=== PATIENT | female | born 1940 | race Caucasian/White ===

== ENCOUNTER 2016-03-24 13:22 | Emergency (ER) | payer OTHER ==
[~2016-03-24 13:22] MED LIST: ADVIL PM 38 MG-1 TAB PO; ALBUTEROL S2 MG/5 ML INH; ALBUTEROL SULFAT3 M1 INH; ALBUTEROL0.09 MG/A1 INH; ANTIVERT 25 MG25 MG PO; ANTIVERT12.5 MG PO; ATROVENT HFA 121 PUF INH; AZITHROMYCIN250 M1 PO; AZITHROMYCIN250 MG PO; BACTRIM DS 8001 TAB PO; BACTROBAN OINT.15 GM TOP; BACTROBAN15 GM TOP; BENADRYL 50 MG50 MG PO; BENZONATATE100 MG PO; BENZONATATE200 M1 PO; CHERATUSSIN AC118 ML PO; CORTEF10 M1 PO; CYCLOBENZAPRINE10 M1 PO; DELTASONE20 MG PO; DILTIAZEM 12HR120 MG PO; DILTIAZEM HYDR180 M1 PO; FLEXERIL10 MG PO; GABAPENTIN300 M2 PO; GABAPENTIN300 MG PO; GUAIFENESIN-COD10 ML PO; HYDROCODON-ACE1 EAC5 PO; HYDROCORTISONE10 M1 PO; HYDROCORTISONE10 M2 PO; HYDROCORTISONE10 MG PO; LEADER MELATONIN5 MG PO; LEVOTHYROXIN0.075 M1 PO; LEVOTHYROXINE125 MCG PO; LIDODERM 5% PAT1 PAT EXT; LIDODERM 5% PAT1 PAT TOP; MAALOX PLUS30 ML PO; MECLIZINE HCL25 MG PO; MEDROL DOSEPAK1 PAC PO; MEDROL4 M2 PO; MELATONIN3 M4 PO; MIRALAX17 GM PO; MOBIC7.5 M1 PO; MYRBETRIQ25 M1 PO; Mucinex PO; NEURONTIN300 M1 PO; NORCO 325 MG-51 TAB PO; OMEPRAZOLE20 M2 PO; OMEPRAZOLE40 MG PO; OXYBUTYNIN CHLOR5 M2 PO; OXYBUTYNIN CHLOR5 MG PO; PANTOPRAZOLE SO40 M1 PO; PAROXETINE HCL10 MG PO; PERCOCET 325 MG1 TA2 PO; PERCOCET 5-3251 EACH PO; PREDNISONE10 M2 PO; PREDNISONE10 MG PO; PREMARIN V0.625 MG/G TOP; PRILOSEC 20MG C20 MG PO; PROAIR HFA0.09 MG/Ac INH; ROBITUSSIN W/CO10 ML PO; Robitussin AC PO; SENNA CON/DOCUS1 TAB PO; SILVADENE CREAM50 GM TOP; SOLU-MEDROL40 MG IV; SYMBICORT 160/41 PUF INH; SYNTHROID75 MCG PO; Senokot S PO; TESSALON PERLE100 MG PO; VICODIN 300 MG-1 TAB PO; VICODIN 5-3001 EACH PO; VICODIN5-300 PO; ZITHROMAX Z-PA250 M1 PO; ZITHROMAX Z-PA250 MG PO; ZITHROMAX250 M2 PO; ZOFRAN 4 MG TABL4 MG PO; ZOFRAN ODT4 MG SL; [UNRECOGNIZED DRUG - OTHER] PO
[2016-03-24 14:46] LABS: ABSOLUTE BASOPHIL COUNT 0 /CUMM (0.0-0.2); ABSOLUTE EOSINOPHIL COUNT 0 /CUMM (0.0-0.7); ABSOLUTE GRANULOCYTE CT 8.7 /CUMM (1.4-6.5); ABSOLUTE LYMPH COUNT 1.6 /CUMM (1.2-3.4); ABSOLUTE MONOCYTE COUNT 0.3 /CUMM (0.10-0.60); BASOPHIL % 0.2 % (0.0-2.0); EOSINOPHIL % 0.3 % (0-5); GRANULOCYTE % 81.2 % (42.2-75.2); HEMATOCRIT 37.8 % (37-47); MEAN CORPUSCULAR HGB 24.6 PG (27.0-31.0); MEAN CORPUSCULAR HGB CONC 32.8 G/DL (33.0-37.0); MEAN PLATELET VOLUME 8.8 FL (7.4-10.4); PLATELET COUNT 185 /CUMM (130-400); RBC DISTRIBUTION WIDTH 14.2 % (11.5-14.5); RED BLOOD CELL CT 5.04 /CUMM (4.20-5.40); WHITE BLOOD CELL COUNT 10.7 /CUMM (4.8-10.8)
--- NOTE | 2016-03-24 14:54 | RADIOLOGY REPORT ---
EXAMINATION: XR CHEST CLINICAL INFORMATION: Shortness of breath and cough. COMPARISON: 03/01/2016 TECHNIQUE: PA and lateral views of the chest were obtained. FINDINGS: The cardiomediastinal silhouette is within normal limits. No focal consolidation, pleural effusion or pneumothorax. Patient is status post bilateral shoulder replacement. Diffuse osteopenia is noted. IMPRESSION: No radiographic evidence of acute pulmonary disease.
--- NOTE | 2016-03-24 15:26 | ED DYSPNEA/ASTHMA COMPLAINT ---
History of Present Illness General Chief Complaint: Dyspnea (COPD, CHF, Other) Stated Complaint: SIB MD SIMPSON FOR SOB Source: patient, old records Exam Limitations: no limitations Vital Signs & Intake/Output Vital Signs & Intake/Output Vital Signs Date Time Temp Pulse Resp B/P Pulse O2 O2 Flow FiO2 Ox Delivery Rate 03/24 1606 97.5 88 18 134/78 96 Room Air Room Air 03/24 1555 97 03/24 1351 97.3 93 20 130/77 96 Room Air Allergies Coded Allergies: Penicillins (ANAPHYLAXIS 03/01/16) cyanocobalamin (vitamin B12) (CYANOCOBALAMIN) (HIVES 03/01/16) Reconcile Medications Albuterol Sulfate 2 MG/5 ML NEB 1 UNIT INH 4 TIMES/DAY PRN DYSPNEA Azithromycin (Zithromax) 250 MG TABLET 1 DP PO AD BRONCHITIS 2 the first day followed by 1 for days 2-5 Benzonatate 200 MG CAPSULE 1 CAP PO TIDPRN COUGH Cyclobenzaprine HCl 10 MG TABLET 1 TAB PO BID PRN PAIN Diltiazem HCl (Diltiazem 12HR ER) 120 MG CAP.ER.12H 1 CAP PO DAILY HEART RATE CONTROL (Reported) Gabapentin (Neurontin) 300 MG CAPSULE 1 CAP PO TID pain Hydrocodone/Acetaminophen (Hydrocodon-Acetaminophen 5-300) 1 EACH TABLET 1 TAB PO Q8P PRN Low back pain Hydrocortisone 10 MG TABLET 1 TAB PO TID ADDISONS (Reported) Levothyroxine Sodium 125 MCG TABLET 1 TAB PO DAILY AC THYROID (Reported) Meclizine HCl 25 MG TABLET 1 TAB PO AT BEDTIME PRN DIZZINESS (Reported) Melatonin 3 MG TABLET 2 TAB PO QPM INSOMNIA (Reported) Meloxicam (Mobic) 7.5 MG TABLET 1 TAB PO DAILY PRN PAIN Methylprednisolone. (Medrol) 4 MG TAB.DS.PK 1 DP PO AD breathing Mirabegron (Myrbetriq) 25 MG TAB.ER.24H 1 TAB PO DAILY BLADDER (Reported) Omeprazole 20 MG CAPSULE.DR 20 MG PO BID Acid reflux 2 tab BID Oxybutynin Chloride 5 MG TABLET 1 TAB PO TID URINARY INCONT (Reported) Pantoprazole Sodium 40 MG TABLET.DR 1 TAB PO DAILY GI (Reported) Prednisone (Deltasone) 20 MG TABLET 1 TAB PO BID COPD Triage Note: C/O FEVER, SENT IN BY DR. MACHADO. ALSO C/O WEAKNESS SINCE LAST NIGHT, DRY COUGH. NO RELIEF OF COUGH WITH TREATMENTS. Triage Nurses Notes Reviewed? yes HPI: Patient is a 75-year-old female presents complaining of cough, congestion, generalized weakness, fevers. Symptoms onset approximately 5 days ago. Febrile between 102 and 103F 3-4 days ago. Patient reports she saw her welt maker today and was sent to the emergency department for further evaluation. Cough with sputum production. Patient is unsure if she received an influenza vaccination this year. Symptoms are currently moderate to severe. Patient denies nausea, vomiting, chest pain, abdominal pain. (MICHELLE JONES) Past History Travel History Traveled to [place] past 21 day No Medical History Any Pertinent Medical History? 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 No (MICHELLE JONES) Review of Systems Review of Systems Constitutional: Reports: chills, fever, malaise. EENTM: Reports: no symptoms. Respiratory: Reports: see HPI. Cardiovascular: Denies: chest pain. GI: Denies: abdominal pain, nausea, vomiting. Genitourinary: Reports: no symptoms. Musculoskeletal: Reports: no symptoms. Skin: Reports: no symptoms. Neurological/Psychological: Reports: no symptoms. Hematologic/Endocrine: Reports: no symptoms. Immunologic/Allergic: Reports: no symptoms. (MICHELLE JONES) Physical Exam Physical Exam General Appearance: alert, awake Head: atraumatic, normal appearance Eyes: Bilateral: normal appearance, PERRL, EOMI. Ears, Nose, Throat: normal pharynx, normal ENT inspection, hearing grossly normal Neck: normal inspection, supple, full range of motion Respiratory: no respiratory distress, mild diffuse inspiratory and expiratory wheezing. Cardiovascular: regular rate/rhythm (no murmur) Gastrointestinal: soft, non-tender Extremities: normal inspection, normal capillary refill, normal range of motion Neurologic/Psych: no motor/sensory deficits, awake, alert, oriented x 3, normal gait, normal mood/affect Skin: intact, normal color, warm/dry Lymphatic: no anterior cervical kelly Core Measures ACS in differential dx? Yes ASA ordered for poss ACS? No-ACS ruled out Severe Sepsis Present: No Septic Shock Present: No (MICHELLE JONES) Progress Differential Diagnosis: asthma, AMI, bronchitis, CHF, COPD, pulmonary embolism, pneumonia, unstable angina Plan of Care: Orders Procedure Date/time Status RAPID VIRAL INFLUENZA A 03/24 1546 Complete TROPONIN LEVEL 03/24 1409 Complete COMPREHENSIVE METABOLIC PANEL 03/24 1409 Complete CBC WITHOUT DIFFERENTIAL 03/24 1409 Complete EKG 03/24 1324 Active Laboratory Tests 03/24/16 1438: Anion Gap 14, Estimated GFR > 60, BUN/Creatinine Ratio 16.7, Glucose 136 H, Calcium 8.8, Total Bilirubin 0.4, AST 47 H, ALT 75 H, Alkaline Phosphatase 114 , Troponin I < 0.01, Total Protein 6.7, Albumin 3.9, Globulin 2.8, Albumin/ Globulin Ratio 1.4, CBC w Diff NO MAN DIFF REQ, RBC 5.04, MCV 75.0 L, MCH 24.6 L, RDW 14.2, MPV 8.8, Gran % 81.2 H, Lymphocytes % 15.1 L, Monocytes % 3.2, Eosinophils % 0.3, Basophils % 0.2, Absolute Granulocytes 8.7 H, Absolute Lymphocytes 1.6, Absolute Monocytes 0.3, Absolute Eosinophils 0, Absolute Basophils 0, PUBS MCHC 32.8 L 1600: Patient received DuoNeb treatment, reports feeling improved, ambulating around the room without distress, requesting discharge. Results of labs and x- ray discussed with patient. Discussed with Dr. Lord. Appears stable for discharge. (MICHELLE JONES) Diagnostic Imaging: Viewed by Me: Radiology Read. Discussed w/RAD: Radiology Read. Radiology Impression: PATIENT: JON CRISTINA PRESENT AGE: 75 PATIENT ACCOUNT NO: [id number] : 40 LOCATION: [facility] ORDERING PHYSICIAN: LOUIE MANUEL DO SERVICE DATE: 03/24/16-1403 EXAM TYPE: RAD - XRY-CHEST XRAY, PA AND LATERAL EXAMINATION: XR CHEST CLINICAL INFORMATION: Shortness of breath and cough. COMPARISON: 03/01/2016 TECHNIQUE: PA and lateral views of the chest were obtained. FINDINGS: The cardiomediastinal silhouette is within normal limits. No focal consolidation, pleural effusion or pneumothorax. Patient is status post bilateral shoulder replacement. Diffuse osteopenia is noted. IMPRESSION: No radiographic evidence of acute pulmonary disease. DICTATED BY: TOYIN AN DO DATE/TIME DICTATED:03/24/161447 CHAIN CARRIER:ANA DATE/TIME TRANSCRIBED:03/24/161447 CONFIDENTIAL, DO NOT COPY WITHOUT APPROPRIATE AUTHORIZATION. <Electronically signed in Other Vendor System> SIGNED BY: TOYIN AN DO 03/24/16 1454 Initial ED EKG: normal intervals, normal QRS complex, normal sinus rhythm, no ST T wave changes (MICHELLE JONES) Departure Departure Time of Disposition: 1605 Disposition: HOME OR SELF CARE Condition: Stable Clinical Impression Primary Impression: COPD exacerbation Referrals: JORGE CHICAS DO (PCP/Family) TATIANA ZAVALETA,LIGIA Corey Additional Instructions: Use your nebulizer every 4 hours for this acute exacerbation. Follow up with her primary doctor or your welt maker within 1 week for recheck and further evaluation. Departure Forms: Customer Survey General Discharge Information Prescriptions: Current Visit Scripts Methylprednisolone. (Medrol) 1 DP PO AD #1 DP (MICHELLE JONES) PA/STRIPPING SHOVEL OILER Co-Sign Statement Statement: ED Attending supervision documentation- [x] I saw and evaluated the patient. I have also reviewed all the pertinent lab results and diagnostic results. I agree with the findings and the plan of care as documented in the PA's/STRIPPING SHOVEL OILER's documentation. [] I have reviewed the ED Record and agree with the PA's/STRIPPING SHOVEL OILER's documentation. [] Additions or exceptions (if any) to the PAs/STRIPPING SHOVEL OILER's note and plan are summarized below: [] (CHELA ZAVALETA,LOUIE Myers) Critical Care Note Critical Care Note Critical Care Time: non-applicable (MICHAEL CAMPBELL,MICHELLE)
[2016-03-24 16:06] VITALS: BP 134/78
[2016-03-24] MEDS ORDERED: MEDROL4 M2 PO (16:07)
== END 2016-03-24 16:11 ==
LOC: ERH 13:22
PROVIDERS: Emergency Medicine
DX: J44.1 Chronic obstructive pulmonary disease with (acute) exacerbation (principal)
CPT/HCPCS: 1263; 87804; 87804-59; 93005; 93010

== ENCOUNTER 2016-05-04 10:13 | Emergency (ER) | payer OTHER ==
[~2016-05-04] VITALS: Ht 167.6 cm; Wt 90.7 kg
[2016-05-04] MEDS ORDERED: TRAZODONE HCL50 M1 PO (11:30)
[2016-05-04] MEDS ORDERED: ALBUTEROL2.5 MG/3 M INH/SOL (11:31)
--- NOTE | 2016-05-04 11:54 | ED GENERAL ADULT ---
History of Present Illness General Chief Complaint: General Adult Stated Complaint: MULTI COMPLAINTS Source: patient Exam Limitations: no limitations Vital Signs & Intake/Output Vital Signs & Intake/Output Vital Signs Date Time Temp Pulse Resp B/P Pulse O2 O2 Flow FiO2 Ox Delivery Rate 05/05 1245 98.6 80 20 120/60 95 Room Air 05/05 1020 99.6 97 20 128/59 95 05/05 0820 98.9 90 20 122/70 96 Room Air 05/05 0625 96.8 94 18 120/68 96 Room Air 05/04 2327 96.9 80 20 120/57 96 Room Air 05/04 1627 Room Air ED Intake and Output 05/05 0000 05/04 1200 Intake Total 1000 Output Total 1 Balance 999 Intake, IV 1000 Output, Urine 1 Patient 200 lb Weight Allergies Coded Allergies: Penicillins (ANAPHYLAXIS 03/01/16) cyanocobalamin (vitamin B12) (CYANOCOBALAMIN) (HIVES 03/01/16) Reconcile Medications Albuterol Sulfate 2.5 MG/3 ML (0.083 %) VIAL.NEB 1 Vial INH/PATI Q4P PRN DYSPNEA (Reported) Cyclobenzaprine HCl 10 MG TABLET 1 TAB PO BID PRN PAIN Diltiazem HCl (Diltiazem 12HR ER) 120 MG CAP.ER.12H 1 CAP PO DAILY HEART RATE CONTROL (Reported) Gabapentin (Neurontin) 300 MG CAPSULE 1 CAP PO TID pain Hydrocodone/Acetaminophen (Hydrocodon-Acetaminophen 5-300) 1 EACH TABLET 1 TAB PO Q8P PRN Low back pain Hydrocortisone 10 MG TABLET 1 TAB PO TID ADDISONS (Reported) Levothyroxine Sodium 125 MCG TABLET 1 TAB PO DAILY AC THYROID (Reported) Meclizine HCl 25 MG TABLET 1 TAB PO AT BEDTIME PRN DIZZINESS (Reported) Melatonin 3 MG TABLET 2 TAB PO QPM INSOMNIA (Reported) Meloxicam (Mobic) 7.5 MG TABLET 1 TAB PO DAILY PRN PAIN Mirabegron (Myrbetriq) 25 MG TAB.ER.24H 1 TAB PO DAILY BLADDER (Reported) Omeprazole 20 MG CAPSULE.DR 20 MG PO BID Acid reflux 2 tab BID Oxybutynin Chloride 5 MG TABLET 1 TAB PO TID URINARY INCONT (Reported) Pantoprazole Sodium 40 MG TABLET.DR 1 TAB PO DAILY GI (Reported) Trazodone HCl 50 MG TABLET 1 TAB PO QPM SLEEP (Reported) Triage Note: 75 Y/O FEMALE C/O "BEING SHAKY ON THE INSIDE, I CANT WALK, IM FALLING DOWN, IM SHORT OF BREATH ..". SYMPTOMS ONSET YESTERDAY. NO ACUTE DISTRESS NOTED. PT SPEAKING WITH COMPLETE SENTENCES, SAT 97%. AFEBRILE. IN W/C FOR SAFETY. Triage Nurses Notes Reviewed? yes HPI: This patient is a 75-year-old female with a past medical history including asthmatic bronchitis and CABG who presented to the emergency department today for evaluation of multiple complaints. The patient reported that yesterday she began feeling weak and, "shaky inside." She reported that it is difficult for her to walk due to weakness in her legs. She reported that she also feels like it is difficult to pick things up due to weakness in her hands. She reported that she started having 8 out of 10, sharp, nonradiating right flank pain which is worse with movement. She denied some mild burning with urination. No urinary urgency, frequency, or blood in the urine. The patient denied any abdominal pain, nausea, vomiting, fevers, chills, or chest pain. She did report that he feels like it is difficult to take a deep breath and feels like someone is, "sitting on my lungs." The patient does have a nonproductive cough, but does not know when this started. (EZEKIEL LEACH,DONALD) Past History Travel History Traveled to [place] past 21 day No Medical History Any Pertinent Medical History? 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 No (EZEKIEL LEACH,DONALD) Review of Systems Review of Systems Constitutional: Reports: see HPI. EENTM: Reports: no symptoms. Respiratory: Reports: see HPI. Cardiovascular: Reports: no symptoms. GI: Reports: no symptoms. Genitourinary: Reports: see HPI. Musculoskeletal: Reports: see HPI. Skin: Reports: no symptoms. Neurological/Psychological: Reports: no symptoms. All Other Systems: Reviewed and Negative (EZEKIEL LEACH,DONALD) Physical Exam Physical Exam General Appearance: well developed/nourished, no apparent distress, alert, awake Comments: Well-developed well-nourished person in no acute distress HEENT: Normal EENT exam, head normocephalic, dry mucous membranes PERRLA bilaterally Neck: Supple Back: Normal inspection. No bony or muscular deformities. Right-sided CVA tenderness. No midline tenderness Cardiovascular: Regular rate and rhythm with no murmurs, rubs, or gallops. No JVD appreciated Respiratory: Chest nontender. No respiratory distress. Expiratory wheezes heard throughout all lung vega. No rales or rhonchi. No diminished breath sounds Abdomen: Soft, nontender and nondistended with normoactive bowel sounds. No rebound or guarding. No peritoneal signs Extremity: No edema, no calf tenderness to palpation, normal and equal pulses. Neuro: Alert to person and place, cranial nerves II through XII grossly intact. No focal neurologic deficits Skin: No appreciable rash on exposed skin, skin is warm and dry. Psych: Mood and affect is normal Core Measures ACS in differential dx? Yes CVA/TIA Diagnosis: No Severe Sepsis Present: No Septic Shock Present: No (EZEKIEL LEACH,DONALD) Progress Differential Diagnoses I considered the following diagnoses in my evaluation of the patient: [Urinary tract infection, pyelonephritis, ACS, PE, pneumonia, bronchitis, asthma exacerbation, CHF, influenza, viral syndrome] Diagnostic Imaging: Viewed by Me: Radiology Read. Discussed w/RAD: Radiology Read. CXR Impression: PATIENT: JON CRISTINA PRESENT AGE : 75 PATIENT ACCOUNT NO: [id number] : 40 LOCATION: [facility] ORDERING PHYSICIAN: DONALD FALCON PA-C SERVICE DATE: 05/04/16 EXAM TYPE: RAD - XRY-CHEST XRAY, PA AND LATERAL EXAMINATION: XR CHEST CLINICAL INFORMATION: Cough. COMPARISON: 03/24/2016, 11/25/2015, 01/21/2015. TECHNIQUE: 2 views of the chest were obtained. FINDINGS: The cardiomediastinal silhouette is within normal limits. There is a new streaky opacity identified in the lingula concerning for developing infiltrate and pneumonia in the proper clinical setting. The lungs and pleural spaces otherwise appear clear. There is no evidence of pneumothorax or pulmonary edema. Included osseous structures demonstrate post are difficult changes in the shoulders. IMPRESSION: Probable developing lingular infiltrate concerning for pneumonia. Follow-up to clearing is recommended. DICTATED BY: MAYO YU MD DATE/TIME DICTATED:05/04/161205 MISSION COORDINATOR:ANA DATE/TIME TRANSCRIBED:05/04/161205 CONFIDENTIAL, DO NOT COPY WITHOUT APPROPRIATE AUTHORIZATION. <Electronically signed in Other Vendor System> SIGNED BY: MAYO YU MD 05/04/16 1212 Initial ED EKG: normal axis, normal intervals, no ST T wave changes, 82 BPM Comments: 05/04/2016 3:46:54 PM: Physical therapy evaluated this patient. They are recommending rehabilitation. The patient is in agreement with the plan. (EZEKIEL LEACH,DONALD) Plan of Care: Orders Procedure Date/time Status RAPID VIRAL INFLUENZA A 05/05 1251 Complete Heart Healthy Diet 05/04 D Active PT Evaluate & Treat 05/04 1446 Active CASE MANAGEMENT CONSULT 05/04 1446 Active Therapeutic Exercise X 15 05/04 UNK Complete Gait Training, 15 Min 05/04 UNK Complete PT EVAL LOW COMPLEX 20 MIN 05/04 UNK Complete Laboratory Tests 05/04/16 1533: Lactic Acid Cancelled Microbiology 05/05 1256 NASOPHARYN: Influenza Virus A & B Rapid Smear - COMP 05/04 1604 NASOPHARYN: Influenza Virus A & B Rapid Smear - CAN Cancelled: Cancelled via OE: NEED NEW LABEL Hand-Off Endorsed To: JM CEBALLOS MD Endorsed Time: 2300 Pending: consult (PT) (ZI ZAVALETA,MAREN Corey) Hand-Off Endorsed To: LOUIE YORK MD Endorsed Time: 0700 Pending: consult (JM CEBALLOS MD) Comments: 05/05/2016 07:00 pt signed out to me by dr ceballos. 05/05/2016 2:45:24 PM patient is being transferred to an extended care facility. (CHELA ZAVALETA,LOUIE Myers) Departure Departure Disposition: ACUTE REHAB FACILITY Condition: Stable Clinical Impression Primary Impression: Weakness Secondary Impressions: Unstable gait Referrals: JORGE CHICAS DO (PCP/Family) Departure Forms: Customer Survey General Discharge Information (DONALD FALCON PA-C) Critical Care Note Critical Care Note Critical Care Time: non-applicable (DONALD FALCON PA-C) 05/04 1203 URINE ROUT: Urine Culture - RECD Hand-Off Endorsed To: JM CEBALLOS MD Endorsed Time: 2300 Pending: consult (PT) (ZI ZAVALETA,MAREN Corey) Hand-Off Endorsed To: LOUIE YORK MD Endorsed Time: 0700 Pending: consult (JM CEBALLOS MD) Comments: 05/05/2016 07:00 pt signed out to me by dr ceballos. (LOUIE YORK MD) Departure Departure Disposition: ACUTE REHAB FACILITY Condition: Stable Clinical Impression Primary Impression: Weakness Secondary Impressions: Unstable gait Referrals: JORGE CHICAS DO (PCP/Family) Departure Forms: Customer Survey General Discharge Information (DONALD FALCON PA-C) Critical Care Note Critical Care Note Critical Care Time: non-applicable (DONALD FALCON PA-C)
--- NOTE | 2016-05-04 12:12 | RADIOLOGY REPORT ---
EXAMINATION: XR CHEST CLINICAL INFORMATION: Cough. COMPARISON: 03/24/2016, 11/25/2015, 01/21/2015. TECHNIQUE: 2 views of the chest were obtained. FINDINGS: The cardiomediastinal silhouette is within normal limits. There is a new streaky opacity identified in the lingula concerning for developing infiltrate and pneumonia in the proper clinical setting. The lungs and pleural spaces otherwise appear clear. There is no evidence of pneumothorax or pulmonary edema. Included osseous structures demonstrate post are difficult changes in the shoulders. IMPRESSION: Probable developing lingular infiltrate concerning for pneumonia. Follow-up to clearing is recommended.
[2016-05-04 12:23] LABS: ABSOLUTE BASOPHIL COUNT 0 /CUMM (0.0-0.2); ABSOLUTE EOSINOPHIL COUNT 0.1 /CUMM (0.0-0.7); ABSOLUTE GRANULOCYTE CT 4.5 /CUMM (1.4-6.5); ABSOLUTE LYMPH COUNT 1.5 /CUMM (1.2-3.4); ABSOLUTE MONOCYTE COUNT 0.5 /CUMM (0.10-0.60); BASOPHIL % 0.5 % (0.0-2.0); EOSINOPHIL % 1.7 % (0-5); GRANULOCYTE % 67.6 % (42.2-75.2); HEMATOCRIT 36.2 % (37-47); MEAN CORPUSCULAR HGB CONC 32.2 G/DL (33.0-37.0); MEAN CORPUSCULAR VOLUME 74.4 FL (81.0-99.0); MEAN PLATELET VOLUME 8.7 FL (7.4-10.4); PLATELET COUNT 170 /CUMM (130-400); RBC DISTRIBUTION WIDTH 15.1 % (11.5-14.5); RED BLOOD CELL CT 4.87 /CUMM (4.20-5.40); WHITE BLOOD CELL COUNT 6.7 /CUMM (4.8-10.8)
--- NOTE | 2016-05-04 14:42 | CT SCAN REPORT ---
EXAMINATION: CT CHEST PE STUDY CLINICAL INFORMATION: Weakness. Shortness of breath. Evaluate for pulmonary embolism. History of COPD and asthma. COMPARISON: Chest x-ray dated 05/04/2016. CT scan of the chest dated 11/27/2015. CTA of the chest dated 07/24/2012. TECHNIQUE: Prior to contrast administration, localization images were obtained. After the administration of 82 mL of intravenous Optiray 320, multidetector CT volume acquisition of the chest was performed. 3-D postprocessing was performed with multiplanar reconstructions and MIP images obtained at the acquisition workstation. DLP: 494.16 mGy-cm. FINDINGS: Pulmonary arteries: The bolus timing on this study was acceptable for visualization of the pulmonary arterial tree. There are no intraluminal pulmonary arterial filling defects present to suggest pulmonary embolism in the main pulmonary artery, right and left main pulmonary artery, lobar and segmental branches. Lungs: Mild biapical pleural-based reticular nodular opacities are seen, consistent with scarring. There are moderate centrilobular emphysematous changes seen with an upper lobe predominance. Mild dependent atelectasis is seen in both lower lobes. There are also patchy areas of atelectasis seen in the medial right middle lobe and in the inferomedial lingula. No pulmonary nodules, masses, pleural effusion or pneumothorax. The central airways are patent. Aorta and heart: The heart is normal in size. The aorta is normal in size. Mild aortic and coronary artery calcifications are seen. There is no pericardial effusion. Lymphatic structures: There are mildly enlarged bilateral hilar lymph nodes, measuring up to 1.1 cm in short axis, unchanged dating back to 07/24/2012. No mediastinal or axillary adenopathy is seen. Upper abdomen: There is a small retrocardiac hiatal hernia, containing the gastric fundus. Limited evaluation of the upper abdominal viscera demonstrates no focal abnormality. Bones: There is diffuse osteopenia with mild vertebral endplate spurring seen in the lower thoracic spine. No suspicious focal findings. IMPRESSION: 1. No evidence of pulmonary embolism. 2. Moderate centrilobular emphysema with scattered areas of subsegmental atelectasis. Lungs otherwise unremarkable. 3. Chronic mild bilateral hilar adenopathy, unchanged dating back to 07/24/2012, likely reactive. 4. Small retrocardiac hiatal hernia. 5. Osteopenia. VTE: Negative.
[2016-05-05 12:45] VITALS: BP 120/60
== END 2016-05-05 16:14 ==
LOC: ERH 10:13
PROVIDERS: Physician Assistant
DX: R53.1 Weakness (principal); R26.81 Unsteadiness on feet
CPT/HCPCS: 1263; 81001; 87040; 87086; 87804; 87804-59; 93005; 93010; 96361; 96374; 96375; 97110-GP; 97116-GP; 97161-GP; J1885; J2930

== ENCOUNTER 2016-06-25 12:08 | Emergency (ER) | payer OTHER ==
[~2016-06-25] VITALS: Ht 167.6 cm; Wt 90.7 kg
[~2016-06-25 12:08] MED LIST changes: +ALBUTEROL2.5 MG/3 M INH/SOL; +TRAZODONE HCL50 M1 PO
[2016-06-25 12:25] VITALS: BP 100/60
--- NOTE | 2016-06-25 12:54 | ED NECK/BACK PAIN COMPLAINT ---
History of Present Illness General Chief Complaint: Low Back Pain/Injury Stated Complaint: BACK PAIN Source: patient, old records Exam Limitations: no limitations Vital Signs & Intake/Output Vital Signs & Intake/Output Vital Signs Date Time Temp Pulse Resp B/P Pulse O2 O2 Flow FiO2 Ox Delivery Rate 06/25 1225 97.2 93 20 100/60 96 Room Air Allergies Coded Allergies: Penicillins (ANAPHYLAXIS 03/01/16) cyanocobalamin (vitamin B12) (CYANOCOBALAMIN) (HIVES 03/01/16) Reconcile Medications Albuterol Sulfate 2.5 MG/3 ML (0.083 %) VIAL.NEB 1 Vial INH/PATI Q4P PRN DYSPNEA (Reported) Cyclobenzaprine HCl 10 MG TABLET 1 TAB PO BID PRN PAIN Diltiazem HCl (Diltiazem 12HR ER) 120 MG CAP.ER.12H 1 CAP PO DAILY HEART RATE CONTROL (Reported) Gabapentin (Neurontin) 300 MG CAPSULE 1 CAP PO TID pain Hydrocodone/Acetaminophen (Hydrocodon-Acetaminophen 5-300) 1 EACH TABLET 1 TAB PO Q8P PRN Low back pain Hydrocortisone 10 MG TABLET 1 TAB PO TID ADDISONS (Reported) Levothyroxine Sodium 125 MCG TABLET 1 TAB PO DAILY AC THYROID (Reported) Meclizine HCl 25 MG TABLET 1 TAB PO AT BEDTIME PRN DIZZINESS (Reported) Melatonin 3 MG TABLET 2 TAB PO QPM INSOMNIA (Reported) Meloxicam (Mobic) 7.5 MG TABLET 1 TAB PO DAILY PRN PAIN Mirabegron (Myrbetriq) 25 MG TAB.ER.24H 1 TAB PO DAILY BLADDER (Reported) Omeprazole 20 MG CAPSULE.DR 20 MG PO BID Acid reflux 2 tab BID Oxybutynin Chloride 5 MG TABLET 1 TAB PO TID URINARY INCONT (Reported) Pantoprazole Sodium 40 MG TABLET.DR 1 TAB PO DAILY GI (Reported) Trazodone HCl 50 MG TABLET 1 TAB PO QPM SLEEP (Reported) Tylenol With Codeine (Tylenol With Codeine #3 Tablet) 300 MG-30 MG TABLET 1 TAB PO BIDP PRN PAIN Triage Note: PT TO ED C/O CHRONIC BACK PAIN, WORSE YESTERDAY AND TODAY. TOOK NEURONTIN, BUT RAN OUT. DENIES INJURY. WORSE WITH WALKING. Triage Nurses Notes Reviewed? yes Onset: Gradual Duration: worse persistent since (1 DAY) Timing: recent history Quality/Severity: moderate Location: lumbar spine, paraspinous muscles Radiation: buttocks, upper legs Context: WITH WALKING Method of Injury: unknown Loss of Consciousness: no loss of consciousness HPI: Patient is a 76 out of female with history of chronic back pain presenting to the emergency department with chief complaint of worsening low back pain since yesterday. She reports that she was on a train yesterday and when she got off the train she had to walk 4 blocks home. She does not usually walk that far. Denies any specific trauma but reports that she started having low back pain. Pain is bilateral but worse on the left. It intermittently radiates down to the left buttock. Denies any weakness in the lower extremities. No paresthesias. Denies any urinary incontinence or retention. 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 No chest pain palpitations or shortness of breath. Denies abdominal pain. Denies flank pain. No hematuria. No fevers or chills. (JENNIFER WELLS) Past History Travel History Traveled to [place] past 21 day No Medical History Any Pertinent Medical History? 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 Other Medical Hx: RADHA'S DISEASE, BOBO'S SYNDROME History of MRSA: No History of VRE: No History of CDIFF: No Tetanus Vaccine: 05/02/14 Surgical History Surgical History: knee replacement, BACK SX WRIST SX SHOULDER SX HYSTERECTOMY Psychosocial History Who do you live with Daughter Services at Home None What is your primary language Yakut Tobacco Use: Quit >30 days ago ETOH Use: denies use Illicit Drug Use: denies illicit drug use Family History Family History, If Any: SISTER FH: heart disease BROTHER FH: heart disease MOTHER FH: heart disease FATHER FH: heart disease FH: hypertension Hx Contributory? No (JENNIFER WELLS) Review of Systems Review of Systems Constitutional: Reports: no symptoms. Comments Review of systems: See HPI, All other systems negative. Constitutional, no chills fever or weight loss HEENT: No visual changes no sore throat no congestion Cardiovascular: No chest pain ,palpitation , orthopnea or ankle swelling Skin, no jaundice no rashes Respiratory: No dyspnea cough sputum or hemoptysis GI: No nausea no vomiting : No dysuria No hematuria Muscle skeletal: no neck pain, Neurologic: No numbness no confusion NO WILDER Psych: No stress anxiety or depression,. Heme/endocrine: No bruising no bleeding no polyuria or polydipsia Immunology: No splenectomy or history of AIDS (JENNIFER WELLS) Physical Exam Physical Exam General Appearance: well developed/nourished, no apparent distress, alert, awake , comfortable Neck: normal inspection, supple, full range of motion, normal alignment Comments: Well-developed well-nourished person in no acute distress HEENT: Pupils equally round and reactive to light and accommodation. Nose is atraumatic. Neck: Supple,FULL ROM, NO C SPINE TENDERNESS. Back: Tender to palpation over the paraspinal muscles bilaterally, left greater than right. Limited range of motion with flexion second. Pain at approximately 25 of flexion. No CVA tenderness on exam. Negative modified straight leg raise bilaterally. Cardiovascular: Regular rate and rhythms no murmurs rubs or gallops, normal JVP Respiratory: Chest nontender. No respiratory distress.breath sounds clear to auscultation bilaterally Abdomen: Soft, nontender nondistended, no appreciable organomegaly. Normal bowel sounds. No ascites. No palpable masses or visualized masses on the abdomen. Extremity: No edema, no calf tenderness to palpation, normal and equal pulses. Muscular strength is 5 out of 5 in upper and lower extremities while seated on the stretcher. Gleason Operator strength is equal and symmetric bilaterally. Neuro: Alert oriented x3, motor sensory normal, PATELLAR REFLEXES ARE 2 PLUS BIALATERALLY. Skin: No appreciable rash on exposed skin, skin is warm and dry. Psych: Mood and affect is normal, memory and judgment is normal. (JENNIFER WELLS) Progress Differential Diagnosis: herniated disc, myofascial strain, pyelo/UTI, sciatica, T/L spine injury Plan of Care: Orders Procedure Date/time Status XRY-LUMBOSACRAL SPINE 4 VIEWS 06/25 1304 Active (JENNIFER WELLS) Diagnostic Imaging: Viewed by Me: Radiology Read. Discussed w/RAD: Radiology Read. Radiology Impression: PATIENT: JON CRISTINA PRESENT AGE: 76 PATIENT ACCOUNT NO: [id number] : 40 LOCATION: [facility] ORDERING PHYSICIAN: JENNIFER CAMPBELL SERVICE DATE: 06/25/16-7425 EXAM TYPE: RAD - XRY-LUMBOSACRAL SPINE 4 VIEWS EXAMINATION: XR LUMBOSACRAL SPINE CLINICAL INFORMATION: Pain in lower back. Evaluate for compression fracture. COMPARISON: Lumbar spine film dated 08/28/2014 and 08/27/2013. CT scan of the lumbar spine dated 12/07/2015. TECHNIQUE: AP and lateral views of the lumbosacral spine were obtained. FINDINGS: Diffuse osteopenia and mild convex left thoracolumbar scoliosis again seen. There is no acute compression deformity noted. Moderate degenerative disc disease is again seen at L1-L2 with disc space narrowing, vertebral endplate sclerosis and spurring and grade 1 retrolisthesis of L1 on L2, unchanged dating back to 08/27/2013. There is mild degenerative disc disease at L2-L3, L3-L4. Grade 1 anterolistheses of L5 on S1 is again seen, unchanged. Moderate facet arthropathy present throughout the mid and lower lumbar spine. Fusion of the posterior elements at L4-L5 and L5-S1 is seen. Sacroiliac joints intact and unremarkable. IMPRESSION: 1. Diffuse osteopenia with no evidence of focal compression fracture. 2. Mild thoracolumbar levoscoliosis with multilevel mild to moderate degenerative disc disease and mid and lower lumbar degenerative joint disease. Findings are similar to prior studies. Comments: Patient given by mouth Vicodin on arrival for pain. We will obtain x-ray secondary to history of osteoporosis and age. Patient informed of x-ray results. No signs of acute fracture. Likely exacerbation of chronic pain. Patient will be treated symptomatically with pain medication. Avoiding steroids and NSAIDs secondary to history of osteopenia and cardiac issues. (JULIETH CAMPBELL,JENNIFER) Departure Departure Time of Disposition: 1426 Disposition: HOME OR SELF CARE Condition: Stable Clinical Impression Primary Impression: Back pain Qualifiers: Back pain location: low back pain Chronicity: chronic Back pain laterality: bilateral Sciatica presence: with sciatica Sciatica laterality: sciatica of left side Qualified Codes: M54.42 - Lumbago with sciatica, left side ; G89.29 - Other chronic pain Referrals: JORGE CHICAS DO (PCP/Family) Additional Instructions: Follow-up with your primary care physician call to make an appointment. Avoid heavy lifting or sudden movements. Take medications as prescribed. Return for worsening symptoms or concerns. Departure Forms: Customer Survey General Discharge Information Prescriptions: Current Visit Scripts Tylenol With Codeine (Tylenol With Codeine #3 Tablet) 1 TAB PO BIDP PRN PAIN #6 TAB (JENNIFER WELLS) PA/CONTENT EDITOR Co-Sign Statement Statement: ED Attending supervision documentation- [X] I saw and evaluated the patient. I have also reviewed all the pertinent lab results and diagnostic results. I agree with the findings and the plan of care as documented in the PA's/CONTENT EDITOR's documentation. [X] I have reviewed the ED Record and agree with the PA's/CONTENT EDITOR's documentation. [] Additions or exceptions (if any) to the PAs/CONTENT EDITOR's note and plan are summarized below: [] (ZI ZAVALETA,MAREN Corey)
--- NOTE | 2016-06-25 14:25 | RADIOLOGY REPORT ---
EXAMINATION: XR LUMBOSACRAL SPINE CLINICAL INFORMATION: Pain in lower back. Evaluate for compression fracture. COMPARISON: Lumbar spine film dated 08/28/2014 and 08/27/2013. CT scan of the lumbar spine dated 12/07/2015. TECHNIQUE: AP and lateral views of the lumbosacral spine were obtained. FINDINGS: Diffuse osteopenia and mild convex left thoracolumbar scoliosis again seen. There is no acute compression deformity noted. Moderate degenerative disc disease is again seen at L1-L2 with disc space narrowing, vertebral endplate sclerosis and spurring and grade 1 retrolisthesis of L1 on L2, unchanged dating back to 08/27/2013. There is mild degenerative disc disease at L2-L3, L3-L4. Grade 1 anterolistheses of L5 on S1 is again seen, unchanged. Moderate facet arthropathy present throughout the mid and lower lumbar spine. Fusion of the posterior elements at L4-L5 and L5-S1 is seen. Sacroiliac joints intact and unremarkable. IMPRESSION: 1. Diffuse osteopenia with no evidence of focal compression fracture. 2. Mild thoracolumbar levoscoliosis with multilevel mild to moderate degenerative disc disease and mid and lower lumbar degenerative joint disease. Findings are similar to prior studies.
[2016-06-25] MEDS ORDERED: TYLENOL WITH C1 EACH PO (14:29)
== END 2016-06-25 14:40 ==
LOC: ERH 12:08
DX: M54.5 Low back pain (principal)
CPT/HCPCS: 72110

== ENCOUNTER 2016-07-04 09:37 | Inpatient (IN) | payer OTHER ==
[~2016-07-04] VITALS: Ht 170.2 cm; Wt 90.7 kg
[~2016-07-04 09:37] MED LIST changes: +TYLENOL WITH C1 EACH PO
--- NOTE | 2016-07-04 09:44 | NUR ---
PT C/O PRODUCTIVE COUGH AND SOB X 2 DAYS. STATES WORSE TODAY. 02 SATS 95% IN TRIAGE. PT DENIES CP
--- NOTE | 2016-07-04 10:31 | ED INFLUENZA/URI COMPLAINT ---
History of Present Illness General Chief Complaint: General Adult Stated Complaint: URI; CONGESTION X COUPLE DAYS Source: patient, old records Exam Limitations: no limitations Vital Signs & Intake/Output Vital Signs & Intake/Output Vital Signs Date Time Temp Pulse Resp B/P B/P Pulse O2 O2 Flow FiO2 Mean Ox Delivery Rate 07/04 1540 100.2 07/04 1518 100.2 105 18 132/61 96 Nasal 2.5L Cannula 07/04 1340 99.7 115 21 123/62 92 Nasal 2.0L Cannula 07/04 1138 96 07/04 1054 99.9 100 20 119/56 92 Room Air 07/04 1049 98 07/04 0943 98.1 108 20 119/62 95 Room Air Allergies Coded Allergies: Penicillins (ANAPHYLAXIS 03/01/16) cyanocobalamin (vitamin B12) (CYANOCOBALAMIN) (HIVES 03/01/16) Reconcile Medications Albuterol Sulfate 2.5 MG/3 ML (0.083 %) VIAL.NEB 1 Vial INH/PATI Q4P PRN DYSPNEA (Reported) Cyclobenzaprine HCl 10 MG TABLET 1 TAB PO BID PRN PAIN Diltiazem HCl (Diltiazem 12HR ER) 120 MG CAP.ER.12H 1 CAP PO DAILY HEART RATE CONTROL (Reported) Fluticasone/Vilanterol (Breo Ellipta 200-25 Mcg INH) 200 MCG-25 MCG/DOSE BLST.W.DEV 1 INH INH DAILY COPD (Reported) Gabapentin (Neurontin) 300 MG CAPSULE 1 CAP PO TID pain Hydrocodone/Acetaminophen (Hydrocodon-Acetaminophen 5-300) 1 EACH TABLET 1 TAB PO Q8P PRN Low back pain Hydrocortisone 10 MG TABLET 1 TAB PO TID ADDISONS (Reported) Ipratropium/Albuterol Sulfate (Combivent Respimat Inhal [place]) 20 MCG-100 MCG/ ACTUATION MIST.INHAL 1 PO BREATHING PROBLEMS (Reported) Levothyroxine Sodium 125 MCG TABLET 1 TAB PO DAILY AC THYROID (Reported) Meclizine HCl 25 MG TABLET 1 TAB PO AT BEDTIME PRN DIZZINESS (Reported) Melatonin 3 MG TABLET 2 TAB PO QPM INSOMNIA (Reported) Meloxicam (Mobic) 7.5 MG TABLET 1 TAB PO DAILY PRN PAIN Mirabegron (Myrbetriq) 25 MG TAB.ER.24H 1 TAB PO DAILY BLADDER (Reported) Omeprazole 20 MG CAPSULE.DR 20 MG PO BID Acid reflux 2 tab BID Oxybutynin Chloride 5 MG TABLET 1 TAB PO TID URINARY INCONT (Reported) Pantoprazole Sodium 40 MG TABLET.DR 1 TAB PO DAILY GI (Reported) Trazodone HCl 50 MG TABLET 1 TAB PO QPM SLEEP (Reported) Tylenol With Codeine (Tylenol With Codeine #3 Tablet) 300 MG-30 MG TABLET 1 TAB PO BIDP PRN PAIN Triage Note: PT C/O PRODUCTIVE COUGH AND SOB X 2 DAYS. STATES WORSE TODAY. 02 SATS 95% IN TRIAGE Triage Nurses Notes Reviewed? yes Onset: Abrupt Duration: day(s): (2), constant Timing: recent history Severity: mild, moderate Severity Numbers: 6 Prior Episodes/Possible Cause: chronic episodes No Modifying Factors: none Associated Symptoms: cough, wheezing HPI: 76 year old female history of COPD not on baseline O2 for prednisone presents complaining of a nonproductive cough associated with shortness of breath for the past 2 days. Patient states that she ran out of her inhalers at home. She denies chest pain fever chills sore throat and rhinorrhea. No abdominal pain leg swelling. There are no modifying factors or associated symptoms otherwise. Patient has felt lightheaded with ambulation she is an active smoker. Her job estimator is Dr. MACHADO whom she was scheduled to see today. (ANA LILIA COLON) Past History Travel History Traveled to [place] past 21 day No Medical History Any Pertinent Medical History? 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 Other Medical Hx: RADHA'S DISEASE, BOBO'S SYNDROME History of MRSA: No History of VRE: No History of CDIFF: No Tetanus Vaccine: 05/02/14 Surgical History Surgical History: knee replacement, BACK SX WRIST SX SHOULDER SX HYSTERECTOMY Psychosocial History Who do you live with Daughter Services at Home None What is your primary language [place]orese Tobacco Use: Quit >30 days ago ETOH Use: denies use Illicit Drug Use: denies illicit drug use Family History Family History, If Any: SISTER FH: heart disease BROTHER FH: heart disease MOTHER FH: heart disease FATHER FH: heart disease FH: hypertension Hx Contributory? No (ANA LILIA COLON) Review of Systems Review of Systems Constitutional: Reports: see HPI. All Other Systems: Reviewed and Negative Comments Review of systems: See HPI, All other systems negative. Constitutional, no chills no fever, no malaise HEENT: No visual changes no sore throat no congestion Cardiovascular: No chest pain , no palpitation Skin: no rashes, no change in skin Respiratory: dyspnea cough no sputum GI: No nausea no vomiting, no diarrhea, : No dysuria Muscle skeletal: No joint pain, no joint swelling, no back pain, no neck pain, Neurologic: No numbness no confusion, no headache Psych: No stress Heme/endocrine: No bruising no bleeding Immunology: No lymphadenopathy (ANA LILIA COLON) Physical Exam Physical Exam General Appearance: well developed/nourished, no apparent distress, alert, awake Ears, Nose, Throat: normal ENT inspection, moist mucous membrane, hearing grossly normal, Tympanic normal Comments: Well-developed well-nourished person in no acute distress Head/Face: Atraumatic, no maxillary/frontal sinus tenderness, no facial swelling Eyes: PERRL, EOMI, no conjunctival injection. No nystagmus Ear:External auditory canal and Tympanic membranes clear, no erythema, no FB. Nose: atraumatic.Normal inspection Throat: Moist mucous membranes.Pharynx normal. No pharyngeal erythema/exudate seen. No stridor/drooling or assymetry. No swelling or edema. Neck: Supple, no lymphadenopathy, FROM Back: Nontender, no CVA tenderness. Full range of motion Cardiovascular: Regular rate and rhythms no murmurs rubs Respiratory: Chest nontender.There were no bony deformities, no asymmetry. No respiratory distress. Patient speaking in full complete sentences. wheezing b/l , no rhonchi no rales Abdomen: Soft, nontender nondistended No ascites. Extremity: No edema, full range of motion of extremities, NEURo: pt is awake and oriented x 3. There were no obvious focal neurologic abnormalities. Skin: No appreciable rash on exposed skin, skin is warm and dry. Psych: Mood and affect is normal, memory and judgment is normal. Core Measures Severe Sepsis Present: No Septic Shock Present: No (ANA LILIA COLON) Progress Differential Diagnosis: influenza, pneumonia, bronchitis, ami,pnthx, chf Plan of Care: Orders Procedure Date/time Status Regular Diet 07/04 D Active RAPID VIRAL INFLUENZA A 07/04 1557 Active Change service to 07/04 1556 Active Pathway - chart 07/04 1523 Active Admit to inpatient 07/04 1451 Active Lab Add-on Test 07/04 1451 Active TRC EVALUATION (GEN) 07/04 1436 Active Saline Lock 07/04 1431 Active Pathway - chart 07/04 1431 Active House Staff 07/04 1431 Active Vital Signs 07/04 1413 Active Code Status 07/04 1413 Active Patient Data 07/04 1344 Active Add-on Test (ER Only) 07/04 1201 Active Add-on Test (ER Only) 07/04 1055 Active TOTAL IRON BINDING CAPACITY 07/04 1055 Complete MAGNESIUM 07/04 1055 Complete FERRITIN 07/04 1055 Complete SERUM IRON 07/04 1055 Complete Intake & Output 07/04 1040 Active TROPONIN LEVEL 07/04 1034 Complete CBC WITHOUT DIFFERENTIAL 07/04 1034 Complete BASIC METABOLIC PANEL 07/04 1034 Complete EKG 07/04 0949 Active EKG 07/04 0945 Active VTE Mechanical Prophylaxis 07/04 UNK Active Current Medications Sig/Veronique Start time Last Medication Dose Stop Time Status Admin Ipratropium [place] 2.5 ML ONCE ONE 07/05 1515 AC (Atrovent) 07/05 1516 Diltiazem HCl 120 MG DAILY 07/05 1000 AC (Cardizem CD) Mirabegron 25 MG DAILY 07/05 1000 AC (Myrbetriq) Levothyroxine Sodium 0.125 MG DAILY AC 07/05 0700 AC (Synthroid) Melatonin 6 MG QPM 07/04 2200 AC (Melatonin) Methylprednisolone 40 MG Q8 07/04 2200 AC (Solumedrol) Trazodone HCl 50 MG QPM 07/04 2200 AC (Desyrel) Azithromycin 500 MG Q24H 07/04 1600 AC 07/04 (Zithromax) 1548 Sodium Chloride 250 ML (Normal Saline 0.9%) Gabapentin 300 MG TID 07/04 1600 AC (Neurontin) Hydrocortisone 10 MG TID 07/04 1600 CAN (Hydrocortisone) Oxybutynin Chloride 5 MG TID 07/04 1600 AC (Ditropan) Meloxicam 7.5 MG DAILY 07/04 1530 AC (Mobic 7.5MG) Enoxaparin Sodium 40 MG DAILY 07/04 1519 AC 07/04 (Lovenox) 1540 Acetaminophen 650 MG Q6P PRN 07/04 1515 AC 07/04 (Tylenol) 1540 Oxycodone/ 1 TAB Q6P PRN 07/04 1515 AC Acetaminophen (Percocet) Guaifenesin/Codeine 10 ML Q4P PRN 07/04 1500 AC 07/04 Phosphate 1540 (Robitussin AC) Albuterol Sulfate 3 ML Q4P PRN 07/04 1445 AC (Proventil) Cyclobenzaprine HCl 10 MG BID PRN 07/04 1445 AC (Flexeril 10MG Tab) Laboratory Tests 07/04/16 1055: Anion Gap 9, Estimated GFR > 60, BUN/Creatinine Ratio 18.8, Glucose 89, Calcium 8.6, Magnesium 2.0, Iron 36 L, TIBC 355, Ferritin 22.7, Troponin I < 0.01, CBC w Diff NO MAN DIFF REQ, RBC 4.57, MCV 72.7 L, MCH 23.7 L, RDW 14.9 H, MPV 8.7 , Gran % 64.8, Lymphocytes % 22.6, Monocytes % 9.9 H, Eosinophils % 2.0, Basophils % 0.7, Absolute Granulocytes 4.2, Absolute Lymphocytes 1.5, Absolute Monocytes 0.6, Absolute Eosinophils 0.1, Absolute Basophils 0, PUBS MCHC 32.6 L Microbiology 07/04 1557 NASOPHARYN: Influenza Virus A & B Rapid Smear - COLB Labs ordered DuoNeb chest x-ray ordered patient's case d/w dr manuel was seen and evaluated by dr manuel agrees with plan Patient noted to be wheezing after DuoNeb continuous nebulizer ordered After repeat DuoNeb patient unable to ambulate secondary to dyspnea discussed with her plan of care and need for admission she is a poor outpatient candidate premature discharge would BE medically harmful which she is in agreement with call was placed to the hospitalist (ANA LILIA COLON) Diagnostic Imaging: Viewed by Me: Radiology Read. Discussed w/RAD: Radiology Read. Radiology Impression: PATIENT: JON CRISTINA PRESENT AGE: 76 PATIENT ACCOUNT NO: [id number] : 40 LOCATION: [facility] ORDERING PHYSICIAN: ANA LILIA CAMPBELL SERVICE DATE: 07/04/16 EXAM TYPE: RAD - XRY-CHEST XRAY, PA AND LATERAL EXAMINATION: XR CHEST, 2 VIEWS CLINICAL INFORMATION: Productive cough. Rule out bronchitis. COMPARISON: 05/27/2016 TECHNIQUE: PA and lateral views of the chest were obtained. FINDINGS: Lungs are hyperexpanded with subtle architectural distortion, consistent with known emphysema. No consolidation, pneumothorax, or pleural effusion. Cardiac and mediastinal contours are normal. Pulmonary vasculature is unremarkable. Trachea is midline. Bilateral shoulder arthroplasties are partially imaged. Bones are osteopenic. IMPRESSION: No acute pulmonary findings. DICTATED BY: ANTONIO SAM MD DATE/TIME DICTATED:07/04/161025 OIL AGENT:ANA DATE/TIME TRANSCRIBED:07/04/161025 CONFIDENTIAL, DO NOT COPY WITHOUT APPROPRIATE AUTHORIZATION. <Electronically signed in Other Vendor System> SIGNED BY: ANTONIO SAM MD 07/04/16 1033 Initial ED EKG: sinus tach at 100, no acute ST segment changes normal axis Prior EKG: unchanged () (ANA LILIA COLON) Departure Departure Time of Disposition: 1212 Disposition: STILL A PATIENT Condition: Stable Clinical Impression Primary Impression: COPD exacerbation Referrals: JORGE CHICAS DO (PCP/Family) Departure Forms: Customer Survey General Discharge Information Admission Note Spoke With: RENNY ZAVALETA,ABE June Documentation of Exam: Documentation of any treatments & extenuating circumstances including Concerns Regarding Discharge (functional status, medication knowledge or non-compliance, living conditions, etc.) that warrant an admission rather than observation: Trend labs IV steroids respiratory treatments when necessary premature discharge would BE medically harmful oxygen saturation dropped to 89-90% with ambulation she is a fall risk (ANA LILIA COLON) PA/DIRECTOR CALL CENTER SALES Co-Sign Statement Statement: ED Attending supervision documentation- [X] I saw and evaluated the patient. I have also reviewed all the pertinent lab results and diagnostic results. I agree with the findings and the plan of care as documented in the PA's/DIRECTOR CALL CENTER SALES's documentation. [] I have reviewed the ED Record and agree with the PA's/DIRECTOR CALL CENTER SALES's documentation. [] Additions or exceptions (if any) to the PAs/DIRECTOR CALL CENTER SALES's note and plan are summarized below: [] (LOUIE MANUEL DO)
[2016-07-04] MEDS ORDERED: COMBIVENT RESPIM4 GM INH (10:32)
--- NOTE | 2016-07-04 10:51 | NUR ---
TRIAGE NOTE APPRECIATED PT RECEIVING NEB TREATMENT AT THIS TIME MEDICATED WITH PREDNISONE
[2016-07-04 11:11] LABS: ABSOLUTE BASOPHIL COUNT 0 /CUMM (0.0-0.2); ABSOLUTE EOSINOPHIL COUNT 0.1 /CUMM (0.0-0.7); ABSOLUTE GRANULOCYTE CT 4.2 /CUMM (1.4-6.5); ABSOLUTE LYMPH COUNT 1.5 /CUMM (1.2-3.4); ABSOLUTE MONOCYTE COUNT 0.6 /CUMM (0.10-0.60); BASOPHIL % 0.7 % (0.0-2.0); GRANULOCYTE % 64.8 % (42.2-75.2); HEMATOCRIT 33.2 % (37-47); MEAN CORPUSCULAR HGB 23.7 PG (27.0-31.0); MEAN CORPUSCULAR HGB CONC 32.6 G/DL (33.0-37.0); MEAN CORPUSCULAR VOLUME 72.7 FL (81.0-99.0); MEAN PLATELET VOLUME 8.7 FL (7.4-10.4); PLATELET COUNT 212 /CUMM (130-400); RBC DISTRIBUTION WIDTH 14.9 % (11.5-14.5); RED BLOOD CELL CT 4.57 /CUMM (4.20-5.40); WHITE BLOOD CELL COUNT 6.5 /CUMM (4.8-10.8)
--- NOTE | 2016-07-04 12:03 | NUR ---
PT UNABLE TO WALK TO DOOR FROM BED PT DYSPNEIC COUGHING LOUDLY
--- NOTE | 2016-07-04 12:11 | NUR ---
pt placed on cardiac tech, changened INTO GOWN AND SOCKS, BELONGINGS BAGGED. BLANKET GIVEN FOR COMFORT.
--- NOTE | 2016-07-04 12:22 | NUR ---
PT MEDICATED FOR COUGH IV ESTABLISHED
--- NOTE | 2016-07-04 13:49 | NUR ---
LUNCH TRAY ORDERED WITH [facility] IN [facility].
[2016-07-04] MEDS ORDERED: BREO ELLIPTA 21 EACH INH (14:16)
--- NOTE | 2016-07-04 14:42 | History & Physical ---
JEAN PAUL KLEIN 07/04/16 1442: General Information and HPI MD Statement: I have seen and personally examined SOL CRISTINA and documented this H&P. 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 Today while she was on her way to go to her stitch welder's office Dr. Vogt in [facility] she had a coughing attack and was escorted by medical staff to the ED. She complains of 2 day history of nonproductive cough associated with documented fever 101-102 at home. Reports some shortness of breath on minimal exertion. On interview she reported some palpitations. Her daughter who lives with her also has a "cold". Denies chest pain, dizziness, worsening lower extremity swelling, orthopnea. Allergies/Medications Allergies: Coded Allergies: Penicillins (ANAPHYLAXIS 03/01/16) cyanocobalamin (vitamin B12) (CYANOCOBALAMIN) (HIVES 03/01/16) Home Med list Albuterol Sulfate 2.5 MG/3 ML (0.083 %) VIAL.NEB 1 Vial INH/PATI Q4P PRN DYSPNEA (Reported) Cyclobenzaprine HCl 10 MG TABLET 1 TAB PO BID PRN PAIN Diltiazem HCl (Diltiazem 12HR ER) 120 MG CAP.ER.12H 1 CAP PO DAILY HEART RATE CONTROL (Reported) Fluticasone/Vilanterol (Breo Ellipta 200-25 Mcg INH) 200 MCG-25 MCG/DOSE BLST.W.DEV 1 INH INH DAILY COPD (Reported) Gabapentin (Neurontin) 300 MG CAPSULE 1 CAP PO TID pain Hydrocodone/Acetaminophen (Hydrocodon-Acetaminophen 5-300) 1 EACH TABLET 1 TAB PO Q8P PRN Low back pain Hydrocortisone 10 MG TABLET 1 TAB PO TID ADDISONS (Reported) Ipratropium/Albuterol Sulfate (Combivent Respimat Inhal [place]) 20 MCG-100 MCG/ ACTUATION MIST.INHAL 1 PO BREATHING PROBLEMS (Reported) Levothyroxine Sodium 125 MCG TABLET 1 TAB PO DAILY AC THYROID (Reported) Meclizine HCl 25 MG TABLET 1 TAB PO AT BEDTIME PRN DIZZINESS (Reported) Melatonin 3 MG TABLET 2 TAB PO QPM INSOMNIA (Reported) Meloxicam (Mobic) 7.5 MG TABLET 1 TAB PO DAILY PRN PAIN Mirabegron (Myrbetriq) 25 MG TAB.ER.24H 1 TAB PO DAILY BLADDER (Reported) Omeprazole 20 MG CAPSULE.DR 20 MG PO BID Acid reflux 2 tab BID Oxybutynin Chloride 5 MG TABLET 1 TAB PO TID URINARY INCONT (Reported) Pantoprazole Sodium 40 MG TABLET.DR 1 TAB PO DAILY GI (Reported) Trazodone HCl 50 MG TABLET 1 TAB PO QPM SLEEP (Reported) Tylenol With Codeine (Tylenol With Codeine #3 Tablet) 300 MG-30 MG TABLET 1 TAB PO BIDP PRN PAIN Compliance With Home Meds: GOOD Past History Travel History Traveled to [place] past 21 day No Medical History Neurological: NONE EENT: NONE Cardiovascular: CAD, TACHYCARDIA Respiratory: COPD, emphysema Gastrointestinal: NONE Hepatic: NONE Renal: NONE Musculoskeletal: chronic back pain, disk herniation, 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 Psychiatric: NONE Endocrine: adrenal insufficiency, hypopituitarism, hypothyroidism Blood Disorders: anemia Cancer(s): NONE 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 self Services at Home: None ETOH Use: denies use Illicit Drug Use: denies illicit drug use Review of Systems Review of Systems Constitutional: Reports: fever. Denies: chills, diaphoresis, malaise, weakness, unexplained weight loss. Cardiovascular: Reports: palpitations. Denies: chest pain, edema, orthopena, peripheral edema, syncope. Respiratory: Reports: cough, short of breath. Denies: hemoptysis, orthopnea, sputum production, stridor, wheezing. GI: Denies: abdominal pain, bloating, constipation, diarrhea, distention, bowel incontinence, melena, nausea, bloody stool, changes in stool, vomiting, steatorrhea. Genitourinary: Denies: discharge, dysuria, frequency, hematuria, hesitation, nocturia, pain, urgency. Exam & Diagnostic Data Last 24 Hrs of Vital Signs/I&O Vital Signs Date Time Temp Pulse Resp B/P B/P Pulse O2 O2 Flow FiO2 Mean Ox Delivery Rate 07/04 1800 122 142/104 07/04 1630 96 Nasal 2.5L Cannula 07/04 1615 97.8 105 22 132/61 96 Nasal 3.0L Cannula 07/04 1540 100.2 07/04 1518 100.2 105 18 132/61 96 Nasal 2.5L Cannula 07/04 1340 99.7 115 21 123/62 92 Nasal 2.0L Cannula 07/04 1138 96 07/04 1054 99.9 100 20 119/56 92 Room Air 07/04 1049 98 07/04 0943 98.1 108 20 119/62 95 Room Air Intake & Output 07/04 1600 07/04 0800 07/04 0000 Intake Total 120 Output Total Balance 120 Intake, Oral 120 Patient 200 lb Weight Physical Exam General Appearance Alert, Oriented X3, Cooperative, Mild Distress HEENT Atraumatic, PERRLA, EOMI, Mucous Membr. moist/pink Neck Supple, No JVD, No thryomegaly Lymphatic Axillary nl Cardiovascular Normal S1, Normal S2, tachycardic Lungs b/l rhonchi and wheezing Extremities No Edema, Normal Pulses Last 24 Hrs of Labs/Rocky: Laboratory Tests 07/04/16 1055: Anion Gap 9, Estimated GFR > 60, BUN/Creatinine Ratio 18.8, Glucose 89, Calcium 8.6, Magnesium 2.0, Iron 36 L, TIBC 355, Ferritin 22.7, Troponin I < 0.01, CBC w Diff NO MAN DIFF REQ, RBC 4.57, MCV 72.7 L, MCH 23.7 L, RDW 14.9 H, MPV 8.7 , Gran % 64.8, Lymphocytes % 22.6, Monocytes % 9.9 H, Eosinophils % 2.0, Basophils % 0.7, Absolute Granulocytes 4.2, Absolute Lymphocytes 1.5, Absolute Monocytes 0.6, Absolute Eosinophils 0.1, Absolute Basophils 0, PUBS MCHC 32.6 L Microbiology 07/04 1800 NASOPHARYN: Influenza Virus A & B Rapid Smear - RECD Diagnostic Data EKG Results NSR, CXR Results FINDINGS: Lungs are hyperexpanded with subtle architectural distortion, consistent with known emphysema. No consolidation, pneumothorax, or pleural effusion. Cardiac and mediastinal contours are normal. Pulmonary vasculature is unremarkable. Trachea is midline. Bilateral shoulder arthroplasties are partially imaged. Bones are osteopenic. IMPRESSION: No acute pulmonary findings. 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 MAXIMUM TEMPERATURE 100.2 in the ED, no acute pulmonary changes on chest x-ray. Problem list COPD exacerbation most likely secondary to viral URI Coronary disease Gage's disease Hypothyroidism Questionable PAF Plan admit to general medicine floor, vitals per protocol TRC/nebs, supplemental oxygen, continue Atrovent/Proventil Follow-up rapid swab for influenza Start IV is azithromycin to cover for atypicals IV Solu-Medrol 40 every 8 Continue home meds of gabapentin, Synthyroid, Cardizem, myrbetriq,, Ditropan Subcutaneous prophylaxis Lovenox Regular diet Full code As Ranked By This Provider Problem List: 1. COPD with acute exacerbation 2. Hypothyroidism 3. Gage disease Core Measures/Miscellaneous Acute Coronary Syndrome ACS Diagnosis: No Cerebrovascular Accident CVA/TIA Diagnosis: No Congestive Heart Failure CHF Diagnosis: No Venous Thromboembolism VTE Risk Factors: Age > 40 [facility] prophylaxis d/t: No contraindications No VTE Pharm Prophylaxis d/t: No contraindications VTE Diagnosis: No VTE Type: NONE VTE Confirmed by (Test): NONE Severe Sepsis Severe Sepsis Present: No Septic Shock Septic Shock Present: No Miscellaneous Documentation Attending Case Discussed With: MERRITT BERNARD MD Primary Care Physician: JORGE CHICAS DO Patient sees these Specialists Dr. Torie Doran Level of Patient Care: General Medicine JOANA ZAVALETA,MERRITT 07/04/16 1524: Attending MD Review Statement Attending Statement Attending MD Statement: examined this patient, discuss w/resident/PA/RAILWAY SIGNAL ELECTRICIAN, agreed w/resident/PA/RAILWAY SIGNAL ELECTRICIAN, reviewed EMR data (avail), discussed with nursing, discussed with case mgmt, reviewed images Attending Assessment/Plan: 76-year-old female well known to me from multiple previous admissions. She has underlying COPD and centrilobular emphysema and apparently ran out of her meds a couple of days ago. She came for a pulm visit to see Dr Votg but couldn't make it to his office due to dyspnea and in the ER was noted to be in acute hypoxemic respiratory failure with a sat that went down to 88-89% on room air when she tried to ambulate and get out of the bed. 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 fib not on anticoagulation. She doesn't have any evidence of pneumonia on chest x-ray. She hasn't been in the hospital since November 2015 but has had multiple ED visits in December and January, April and most recently 2 weeks ago. It is appears that one of these ED visits also landed up with her being placed in an STR facility. At this point will bring her into general med and treat her with IV steroids, TRC with nebs and a short course of by mouth antibiotics for bacterial bronchitis. Will have Dr. Vogt, her usual stitch welder see her. We'll continue her other medications including her opiates and NSAIDs for chronic pain. Will have Dr. Doran see her as I think at this point she has sinus tach but will need to clarify whether she has underlying A. fib and will keep her on DVT prophylaxis and the baby aspirin and follow closely. STEVO ZAVALETA,UMAIR 07/04/16 1615: Resident Review Statement Resident Statement: examined this patient, discussed with international guest coordinator, agreed with international guest coordinator, discussed with family, reviewed EMR data (avail), discussed with nursing , discussed with case mgmt, reviewed images, amended to note Other Findings: Sol is a 76-year-old woman with a medical history of COPD (not on home oxygen), coronary artery disease Bobo syndrome, Gage's disease with resultant hypopituitarism and hypoadrenalism, hypothyroidism,? SVT versus proximal atrial fibrillation who is presently admitted for moderate COPD exacerbation, apparently desaturating to 88% on trying to ambulate. She does not appear to be toxic, however has significant cough and sick contact exposure, and appears to be "working" to breathe. Vital signs stable, she did spike a low -grade fever. Physical examination is notable for mild tachycardia, as well as wheezes are auscultated bilaterally. Blood pressure moderate COPD exacerbation with intravenous steroids, inhaled albuterol, ipratropium. Supportive treatment with Tylenol for fever, and Robitussin with codeine for cough. We will test for influenza. Azithromycin 500 mg IV every 24 hours. Continue home pain meds including Percocet. Pulmonary and cardiology consultation placed. DVT prophylaxis with Lovenox. Full code.
--- NOTE | 2016-07-04 14:48 | NUR ---
PT IN ROOM GIVEN LUNCH TRAY WAITING FOR BED ASSIGMENT
--- NOTE | 2016-07-04 15:11 | Admission Certification ---
Admission Certification Certification Statement - As attending physician, I certify that at the time of - admission, based on clinical presentation, severity of - symptoms, need for further diagnostic testing and - therapeutic interventions, and risk of adverse outcomes - without in-hospital treatment, in my clinical assessment, - this patient requires an acute hospital stay for a minimum - of two nights or longer. I have also considered psychsocial - factors such as support system, advanced age, financial - issues, cognitive issues, and failed out-patient treatments, - past re-admission history, safety of patient, and lack of - compliance as applicable. Specific rationale supporting this admission is: Patient with underlying COPD, here with acute COPD exacerbation with hypoxia and inability to ambulate.
--- NOTE | 2016-07-04 15:36 | NUR ---
PT GOING TO ROOM 203-1.
--- NOTE | 2016-07-04 15:50 | NUR ---
REPORT GIVEN TO [facility], DISTRIBUTION CALLED FOR TRANSPORT.
[2016-07-04 16:15] VITALS: BP 132/61
[2016-07-04 18:00] VITALS: BP 142/104
[2016-07-04 23:33] VITALS: BP 130/84
[2016-07-05 06:51] VITALS: BP 120/90
--- NOTE | 2016-07-05 07:25 | Cons- Pulmonary ---
General Information and HPI Consulting Request Date of Consult: 07/05/16 Requested By: ramirez Reason for Consult: Submission of COPD cough shortness of breath History of Present Illness: Patient is 76-year-old with COPD not on home oxygen secondary to long time smoking presented with increasing cough shortness of breath and desaturation. She reports fever at home and had low-grade fever in the emergency room initial white count and chest x-ray were normal. Allergies/Medications Allergies: Coded Allergies: Penicillins (ANAPHYLAXIS 03/01/16) cyanocobalamin (vitamin B12) (CYANOCOBALAMIN) (HIVES 03/01/16) Home Med List: Albuterol Sulfate 2.5 MG/3 ML (0.083 %) VIAL.NEB 1 Vial INH/PATI Q4P PRN DYSPNEA (Reported) Cyclobenzaprine HCl 10 MG TABLET 1 TAB PO BID PRN PAIN Diltiazem HCl (Diltiazem 12HR ER) 120 MG CAP.ER.12H 1 CAP PO DAILY HEART RATE CONTROL (Reported) Fluticasone/Vilanterol (Breo Ellipta 200-25 Mcg INH) 200 MCG-25 MCG/DOSE BLST.W.DEV 1 INH INH DAILY COPD (Reported) Gabapentin (Neurontin) 300 MG CAPSULE 1 CAP PO TID pain Hydrocodone/Acetaminophen (Hydrocodon-Acetaminophen 5-300) 1 EACH TABLET 1 TAB PO Q8P PRN Low back pain Hydrocortisone 10 MG TABLET 1 TAB PO TID ADDISONS (Reported) Ipratropium/Albuterol Sulfate (Combivent Respimat Inhal [place]) 20 MCG-100 MCG/ ACTUATION MIST.INHAL 1 PO BREATHING PROBLEMS (Reported) Levothyroxine Sodium 125 MCG TABLET 1 TAB PO DAILY AC THYROID (Reported) Meclizine HCl 25 MG TABLET 1 TAB PO AT BEDTIME PRN DIZZINESS (Reported) Melatonin 3 MG TABLET 2 TAB PO QPM INSOMNIA (Reported) Meloxicam (Mobic) 7.5 MG TABLET 1 TAB PO DAILY PRN PAIN Mirabegron (Myrbetriq) 25 MG TAB.ER.24H 1 TAB PO DAILY BLADDER (Reported) Omeprazole 20 MG CAPSULE.DR 20 MG PO BID Acid reflux 2 tab BID Oxybutynin Chloride 5 MG TABLET 1 TAB PO TID URINARY INCONT (Reported) Pantoprazole Sodium 40 MG TABLET.DR 1 TAB PO DAILY GI (Reported) Trazodone HCl 50 MG TABLET 1 TAB PO QPM SLEEP (Reported) Tylenol With Codeine (Tylenol With Codeine #3 Tablet) 300 MG-30 MG TABLET 1 TAB PO BIDP PRN PAIN Review of Systems Review of Systems Constitutional: Reports: chills, fever. Cardiovascular: Denies: chest pain, edema. Respiratory: Reports: cough, short of breath, wheezing. Denies: hemoptysis, sputum production. GI: Denies: abdominal pain, diarrhea, melena. 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 Home Who Do You Live With? self Services at Home: None Smoking Status: Former Smoker ETOH Use: denies use Illicit Drug Use: denies illicit drug use Exam & Diagnostic Data Last 24 Hrs of Vital Signs/I&O Vital Signs Date Time Temp Pulse Resp B/P B/P Pulse O2 O2 Flow FiO2 Mean Ox Delivery Rate 07/05 0651 97.7 99 20 120/90 95 Nasal 2.0L Cannula 07/05 0233 94 Nasal 2.0L Cannula 07/05 0000 Nasal 2.0L Cannula 07/04 2333 99.4 110 22 130/84 96 Nasal 2.0L Cannula 07/04 2002 Nasal 2.0L Cannula 07/04 1800 122 142/104 07/04 1639 97.8 07/04 1630 96 Nasal 2.5L Cannula 07/04 1615 97.8 105 22 132/61 96 Nasal 3.0L Cannula 07/04 1540 100.2 07/04 1518 100.2 105 18 132/61 96 Nasal 2.5L Cannula 07/04 1340 99.7 115 21 123/62 92 Nasal 2.0L Cannula 07/04 1138 96 07/04 1054 99.9 100 20 119/56 92 Room Air 07/04 1049 98 07/04 0943 98.1 108 20 119/62 95 Room Air Intake & Output 07/05 0800 07/05 0000 07/04 1600 Intake Total 240 480 120 Output Total 200 Balance 240 280 120 Intake, Oral 240 480 120 Output, Urine 200 Patient 200 lb 200 lb Weight Weight Reported by Patient Measurement Method Oxygen saturation 2 L 95% HEENT exam shows no adenopathy exam for chest shows diminished breath sounds are no wheezes cardiac exam shows regular S1 and S2 without murmurs abdominal exam is soft nontender her extremities are without edema Last 48 Hrs of Labs/Rocky: Laboratory Tests 07/04/16 1055: Anion Gap 9, Estimated GFR > 60, BUN/Creatinine Ratio 18.8, Glucose 89, Calcium 8.6, Magnesium 2.0, Iron 36 L, TIBC 355, Ferritin 22.7, Troponin I < 0.01, CBC w Diff NO MAN DIFF REQ, RBC 4.57, MCV 72.7 L, MCH 23.7 L, RDW 14.9 H, MPV 8.7 , Gran % 64.8, Lymphocytes % 22.6, Monocytes % 9.9 H, Eosinophils % 2.0, Basophils % 0.7, Absolute Granulocytes 4.2, Absolute Lymphocytes 1.5, Absolute Monocytes 0.6, Absolute Eosinophils 0.1, Absolute Basophils 0, PUBS MCHC 32.6 L Microbiology 07/04 1800 NASOPHARYN: Influenza Virus A & B Rapid Smear - COMP Assessment/Plan Impression/Plan: 76-year-old with advanced COPD admitted with an exacerbation. There is underlying coronary artery disease though there is no evidence of congestive heart failure at this time, quick flu is negative Recommendations: Continue IV steroids and Zithromax supplemental oxygen nebs using albuterol and ipratropium. Obtain sputum C&S. Taper oxygen as saturations allow. Can use cough suppressants Consult Acknowledgment - Thank you for your consult request.
--- NOTE | 2016-07-05 13:44 | PN- Housestaff ---
Subjective Follow-up For: COPD exacerbation Subjective: seen and examined Patient. Continues to have non productive cough and shortness of breath on excertion. Denies fevers, chills, chest pain or palpitations. Review of Systems Constitutional: Denies: chills, diaphoresis, fever, malaise, weakness, unexplained weight loss. Cardiovascular: Denies: chest pain, edema, orthopena, palpitations, peripheral edema, syncope. Respiratory: Reports: cough, orthopnea. Denies: hemoptysis, short of breath, sputum production, stridor, wheezing. Gastrointestinal: Denies: abdominal pain, bloating, constipation, diarrhea, distention, bowel incontinence, melena, nausea, bloody stool, changes in stool, vomiting, steatorrhea. Objective Last 24 Hrs of Vital Signs/I&O Vital Signs Date Time Temp Pulse Resp B/P B/P Pulse O2 O2 Flow FiO2 Mean Ox Delivery Rate 07/05 1443 97.9 107 20 118/50 95 Nasal 2.0L Cannula 07/05 0918 95 Nasal 2.0L Cannula 07/05 0800 Nasal 2.0L Cannula 07/05 0651 97.7 99 20 120/90 95 Nasal 2.0L Cannula 07/05 0233 94 Nasal 2.0L Cannula 07/05 0000 Nasal 2.0L Cannula 07/04 2333 99.4 110 22 130/84 96 Nasal 2.0L Cannula 07/04 2002 Nasal 2.0L Cannula Intake & Output 07/05 1600 07/05 0800 07/05 0000 Intake Total 480 240 480 Output Total 300 200 Balance 180 240 280 Intake, Oral 480 240 480 Number 1 Bowel Movements Output, Urine 300 200 Patient 200 lb Weight Weight Reported by Patient Measurement Method Physical Exam General Appearance: Alert, Oriented X3, Cooperative, No Acute Distress Cardiovascular: Regular Rate, Normal S1, Normal S2 Lungs: Normal Air Movement, b/l rhonchi and scattered wheeze Extremities: No Edema Current Medications: Current Medications Sig/Veronique Start time Last Medication Dose Route Stop Time Status Admin Acetaminophen 650 MG Q6P PRN 07/04 1515 AC 07/04 PO 1540 Albuterol Sulfate 3 ML TID 07/04 2200 AC 07/05 INH 1329 Albuterol Sulfate 3 ML Q4P PRN 07/04 1445 AC INH Aspirin Buffered 81 MG DAILY 07/05 1330 AC 07/05 PO 1435 Azithromycin 500 MG DAILY 07/06 1000 AC PO Azithromycin 500 MG ONCE ONE 07/05 1600 DC 07/05 Sodium Chloride 250 ML IV 07/05 1659 1605 Azithromycin 500 MG Q24H 07/04 1600 DC 07/04 Sodium Chloride 250 ML IV 1548 Benzonatate 100 MG TID 07/05 1000 AC 07/05 PO 1604 Cyclobenzaprine HCl 10 MG BID PRN 07/04 1445 AC PO Diltiazem HCl 120 MG DAILY 07/05 1000 AC 07/05 PO 1007 Enoxaparin Sodium 40 MG DAILY 07/04 1519 AC 07/05 SC 1004 Gabapentin 300 MG TID 07/04 1600 AC 07/05 PO 1604 Guaifenesin/Codeine 10 ML Q4P PRN 07/04 1500 AC 07/05 Phosphate PO 1604 Ipratropium [place] 2.5 ML ONCE ONE 07/05 1515 DC INH 07/05 1516 Levothyroxine Sodium 0.125 MG DAILY AC 07/05 0700 AC 07/05 PO 0543 Melatonin 6 MG QPM 07/04 2200 AC 07/04 PO 2222 Meloxicam 7.5 MG DAILY 07/04 1530 AC 07/05 PO 1232 Methylprednisolone 40 MG Q8 07/04 2200 AC 07/05 IV 1435 Mirabegron 25 MG DAILY 07/05 1000 AC 07/05 PO 1007 Oxybutynin Chloride 5 MG TID 07/04 1600 AC 07/05 PO 1604 Oxycodone/ 1 TAB Q6P PRN 07/04 1515 AC Acetaminophen PO Trazodone HCl 50 MG QPM 07/04 2200 AC 07/04 PO 2222 Last 24 Hrs of Lab/Rocky Results Last 24 Hrs of Labs/Mics: Microbiology 07/05 0736 LOWER RESP: Respiratory Culture - COLB 07/05 0736 LOWER RESP: Gram Stain - COLB Assessment/Plan Assessment: 76-year-old woman with past medical history significant for COPD (not on home oxygen), coronary artery disease s/p stents about 2 years ago, Joyce's syndrome, 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 MAXIMUM TEMPERATURE 100.2 in the ED, no acute pulmonary changes on chest x-ray. Hospital day 1 afebrile, vitals stable, saturating 95% on 2 L. Problem list COPD exacerbation most likely secondary to viral URI Coronary disease s/p stent Mcdade's disease Hypothyroidism PAF Plan continue on general medicine floor, vitals per protocol TRC/nebs, supplemental oxygen, continue Atrovent/Proventil rapid swab for influenza neg willl switch to PO azithro continue IV Solu-Medrol 40 every 8 for now Spoke to her scheduling coordinator Dr. Doran who said that she should be on baby aspirin, discussed with patient and her daughter if there was a reason she was not on it. No history of GI bleed. Started her on baby aspirin, will obtain lipid panel in am. Continue home meds of gabapentin, Synthyroid, Cardizem, myrbetriq,, Ditropan Subcutaneous prophylaxis Lovenox Regular diet Full code Problem List: 1. Acute exacerbation of chronic obstructive airways disease 2. Dre's disease 3. CAD Pain Ratin Pain Location: na Pain Goal: Pain 4 or less Pain Plan: current regimen Tomorrow's Labs & Rationales: none required
--- NOTE | 2016-07-05 13:45 | PN- Att Addend ---
Attending Addendum Attending Brief Note Patient seen and examined. Agree with the international editorial producer's note. Patient is still quite short of breath and gets really short of breath on very minimal exertion which is different from her baseline. At this point will continue the IV steroids and by mouth antibiotics at the [facility] with nebs. Titrate the oxygen to a sat of 90-92%. Dr. Doran will see her for evaluation off her tachycardia and history of A. fib. Given her history of coronary artery disease and A. fib she really should be on a low-dose aspirin and statin. The house staff will find out why she is not on this and restart it as necessary. We'll continue the IV steroids but when we transition her to by mouth she needs a by mouth hydrocortisone supplementation as she has Joyce syndrome.
[2016-07-05 14:43] VITALS: BP 118/50
--- NOTE | 2016-07-05 19:14 | NUR ---
NURSING NOTE; AT THIS TIME PT COMPLAINING OF SWELLING TO LAC, NO REDNESS OR SWELLING NOTED, PT "WANTS AN MD TO COME LOOK AT IT NOW", MD #[id number] PAGED. PENDING POSSIBLE ARRIVAL TO FLOOR, VSS, WILL CONTINUE TO MONITOR.
[2016-07-05 22:12] VITALS: BP 128/58
[2016-07-06 06:53] VITALS: BP 124/62
--- NOTE | 2016-07-06 08:10 | PN- Pulmonary ---
Subjective HPI/Critical Care Issues: Patient episode of shortness of breath yesterday evening but this morning feels better her cough is improved. Continues to require low-flow oxygen. Objective Current Medications: Current Medications Sig/Veronique Start time Last Medication Dose Route Stop Time Status Admin Acetaminophen 650 MG Q6P PRN 07/04 1515 AC 07/04 PO 1540 Albuterol Sulfate 3 ML TID 07/04 2200 AC 07/05 INH 1920 Albuterol Sulfate 3 ML Q4P PRN 07/04 1445 AC INH Aspirin Buffered 81 MG DAILY 07/05 1330 AC 07/05 PO 1435 Azithromycin 500 MG DAILY 07/06 1000 AC PO Azithromycin 500 MG ONCE ONE 07/05 1600 DC 07/05 Sodium Chloride 250 ML IV 07/05 1659 1605 Azithromycin 500 MG Q24H 07/04 1600 DC 07/04 Sodium Chloride 250 ML IV 1548 Benzonatate 100 MG TID 07/05 1000 AC 07/05 PO 2156 Cyclobenzaprine HCl 10 MG BID PRN 07/04 1445 AC PO Diltiazem HCl 120 MG DAILY 07/05 1000 AC 07/05 PO 1007 Enoxaparin Sodium 40 MG DAILY 07/04 1519 AC 07/05 SC 1004 Gabapentin 300 MG TID 07/04 1600 AC 07/05 PO 2156 Guaifenesin/Codeine 10 ML Q4P PRN 07/04 1500 AC 07/06 Phosphate PO 0409 Ipratropium [place] 2.5 ML ONCE ONE 07/05 1515 DC INH 07/05 1516 Levothyroxine Sodium 0.125 MG DAILY AC 07/05 0700 AC 07/06 PO 0615 Melatonin 6 MG QPM 07/04 2200 AC 07/05 PO 2156 Meloxicam 7.5 MG DAILY 07/04 1530 AC 07/05 PO 1232 Methylprednisolone 40 MG Q8 07/04 2200 AC 07/06 IV 0615 Mirabegron 25 MG DAILY 07/05 1000 AC 07/05 PO 1007 Oxybutynin Chloride 5 MG TID 07/04 1600 AC 07/05 PO 2156 Oxycodone/ 1 TAB Q6P PRN 07/04 1515 AC Acetaminophen PO Trazodone HCl 50 MG QPM 07/04 2200 AC 07/05 PO 2156 Vital Signs & I&O Last 24 Hrs of Vitals and I&O: Vital Signs Date Time Temp Pulse Resp B/P B/P Pulse O2 O2 Flow FiO2 Mean Ox Delivery Rate 07/06 0653 98.4 87 20 124/62 94 Nasal 2.0L Cannula 07/06 0000 Nasal 2.0L Cannula 07/05 2212 98.1 97 20 128/58 96 Nasal 2.0L Cannula 07/05 1925 97 Nasal 2.0L Cannula 07/05 1600 Nasal 2.0L Cannula 07/05 1443 97.9 107 20 118/50 95 Nasal 2.0L Cannula 07/05 0918 95 Nasal 2.0L Cannula Intake & Output 07/06 1600 07/06 0800 07/06 0000 Intake Total 240 1000 Output Total 900 300 Balance -660 700 Intake, IV 250 Intake, Oral 240 750 Output, Urine 900 300 Oxygen saturation 2 L 94% exam for chest shows diminished breath sounds are no wheezes cardiac exam shows a regular S1 and S2 without murmurs Impression/Plan Impression/Plan Impression/Plan: 76-year-old with advanced COPD admitted with an exacerbation. There is underlying coronary artery disease though there is no evidence of congestive heart failure at this time, quick flu is negative. Respiratory status appears to be slowly improving Recommendations: Continue IV steroids and Zithromax supplemental oxygen nebs using albuterol and ipratropium. Obtain sputum C&S. Taper oxygen as saturations allow. Can use cough suppressants which are helpful in minimizing her cough. Hopefully tomorrow we will transition to oral prednisone
--- NOTE | 2016-07-06 11:12 | PN- Housestaff ---
JEAN PAUL KLEIN 07/06/16 1111: Subjective Follow-up For: COPD exacerbation Subjective: Seen and examined patient, reports an episode of transient shortness of breath overnight along with some chest discomfort. Denies fevers, chills, abdominal and on interview denied ongoing chest pain. Review of Systems Constitutional: Denies: chills, diaphoresis, fever, malaise, weakness, unexplained weight loss. Cardiovascular: Denies: chest pain, edema, orthopena, palpitations, peripheral edema, syncope. Respiratory: Reports: cough, short of breath. Denies: hemoptysis, orthopnea, sputum production, stridor, wheezing. Gastrointestinal: Denies: abdominal pain, bloating, constipation, diarrhea, distention, bowel incontinence, melena, nausea, bloody stool, changes in stool, vomiting, steatorrhea. Genitourinary: Denies: discharge, dysuria, frequency, hematuria, hesitation, nocturia, pain, urgency. Objective Last 24 Hrs of Vital Signs/I&O Vital Signs Date Time Temp Pulse Resp B/P B/P Pulse O2 O2 Flow FiO2 Mean Ox Delivery Rate 07/06 1600 99 Nasal 3.0L Cannula 07/06 1408 98.0 100 20 134/56 99 Nasal 3.0L Cannula 07/06 0816 97 Nasal 3.0L Cannula 07/06 0800 94 Nasal 3.0L Cannula 07/06 0653 98.4 87 20 124/62 94 Nasal 2.0L Cannula 07/06 0000 Nasal 2.0L Cannula 07/05 2212 98.1 97 20 128/58 96 Nasal 2.0L Cannula 07/05 1925 97 Nasal 2.0L Cannula Intake & Output 07/06 1600 07/06 0800 07/06 0000 Intake Total 437 990 0947 Output Total 900 300 Balance 480 -660 700 Intake, IV 250 Intake, Oral 480 240 750 Output, Urine 900 300 Patient 200 lb Weight Physical Exam General Appearance: Alert, Oriented X3, Cooperative, No Acute Distress Cardiovascular: Normal S1, Normal S2 Lungs: b/l rhonchi Extremities: No Edema Current Medications: Current Medications Sig/Veronique Start time Last Medication Dose Route Stop Time Status Admin Acetaminophen 650 MG Q6P PRN 07/04 1515 AC 07/04 PO 1540 Albuterol Sulfate 3 ML TID 07/04 2200 AC 07/06 INH 1324 Albuterol Sulfate 3 ML Q4P PRN 07/04 1445 AC INH Aspirin Buffered 81 MG DAILY 07/05 1330 AC 07/06 PO 0927 Atorvastatin Calcium 40 MG 1700 07/06 1715 AC PO Azithromycin 500 MG DAILY 07/06 1000 AC 07/06 PO 0928 Benzonatate 100 MG TID 07/05 1000 AC 07/06 PO 1659 Cyclobenzaprine HCl 10 MG BID PRN 07/04 1445 AC PO Diltiazem HCl 120 MG DAILY 07/05 1000 AC 07/06 PO 0928 Enoxaparin Sodium 40 MG DAILY 07/04 1519 AC 07/06 SC 0936 Gabapentin 300 MG TID 07/04 1600 AC 07/06 PO 1658 Guaifenesin/Codeine 10 ML Q4P PRN 07/04 1500 AC 07/06 Phosphate PO 1711 Levothyroxine Sodium 0.125 MG DAILY AC 07/05 0700 AC 07/06 PO 0615 Melatonin 6 MG QPM 07/04 2200 AC 07/05 PO 2156 Meloxicam 7.5 MG DAILY 07/06 1000 07/06 PO 0935 Meloxicam 7.5 MG DAILY 07/04 1530 NE 07/05 PO 1232 Methylprednisolone 40 MG Q12 07/07 1000 AC IV Methylprednisolone 40 MG Q8 07/04 2200 AC 07/06 IV 07/07 0000 1304 Mirabegron 25 MG DAILY 07/05 1000 AC 07/06 PO 0927 Oxybutynin Chloride 5 MG TID 07/04 1600 AC 07/06 PO 1659 Oxycodone/ 1 TAB Q6P PRN 07/04 1515 AC 07/06 Acetaminophen PO 1504 Patient Medication 1 ED .STK-MED ONE 07/06 1407 NE Teaching ED 07/06 1408 Trazodone HCl 50 MG QPM 07/04 2200 07/05 PO 2156 Last 24 Hrs of Lab/Rocky Results Last 24 Hrs of Labs/Mics: Laboratory Tests 07/06/16 0610: Phosphorus 3.6, Triglycerides 89, Cholesterol 160, LDL Cholesterol, Calc 96, HDL Cholesterol 47, Cholesterol/HDL Ratio 3 Assessment/Plan Assessment: 76-year-old woman with past medical history significant for COPD (not on home oxygen), coronary artery disease s/p stents about 2 years ago, Joyce's syndrome, 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 MAXIMUM TEMPERATURE 100.2 in the ED, no acute pulmonary changes on chest x-ray. Hospital day 1 afebrile, vitals stable, saturating 97% on 3 L. Problem list acute hypoxic respiratory failure secondary COPD exacerbation Coronary disease s/p stent Thurston's disease Hypothyroidism PAF Plan continue on general medicine floor, vitals per protocol continuTRC/nebs, supplemental oxygen, continue Atrovent/Proventil rapid swab for influenza neg willl switch to PO azithro continue IV Solu-Medrol 40 every 8 for now Cardio and pulmn on board, appreciate recomendation continue aspirin and will start atorvastatin 40mg today Continue home meds of gabapentin, Synthyroid, Cardizem, myrbetriq,, Ditropan Subcutaneous prophylaxis Lovenox Regular diet Full code Problem List: 1. Acute exacerbation of chronic obstructive airways disease 2. Acute respiratory failure with hypoxia 3. Thurston disease Pain Ratin Pain Location: na Pain Goal: Pain 4 or less Pain Plan: current regimen Tomorrow's Labs & Rationales: none required MERRITT BERNARD MD 07/06/16 1151: Attending MD Review Statement Attending Statement Attending MD Statement: examined this patient, discuss w/resident/PA/POWER BRAKE OPERATOR, agreed w/resident/PA/POWER BRAKE OPERATOR, reviewed EMR data (avail), discussed with nursing, discussed with case mgmt, reviewed images Attending Assessment/Plan: The pt is still complaining of severe shortness of breath. She says she had an episode last night of chest tightness and respiratory distress that required the nurse to up the oxygen to 3 L. I did speak to Dr. Vogt and we will keep her on the IV steroids today with the hope of transitioning her to by mouth tomorrow. Given her underlying history of coronary artery disease will get an EKG, continue her Cardizem and baby aspirin, start on a statin and Dr. Doran is going to see her an official consult. She is also complaining of jitteriness and muscle weakness. 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 Duarte. She wants to see Dr. Duarte as an inpatient and will call the consult.
--- NOTE | 2016-07-06 11:15 | Cons- Cardiology ---
General Information and HPI Consulting Request Date of Consult: 07/06/16 Requested By: MERRITT BERNARD MD Reason for Consult: CHest pain Source of Information: patient, old records Exam Limitations: no limitations History of Present Illness: Mrs Cote is a 76 y/o lady with a PMH CAD ss/p stent placement, paroxysmal A. fib not on anticoagulation, HTN, HLD, Bobo syndrome with secondary hypopituitarism, Radha's disease, secondary hypothyroidism, COPD, diverticulosis, colonic polyp, anxiety/depression was admitted with complaints of persistent cough and shortness of breath and currently being managed for COPD exacerbation. Patient reported an episode of diffuse chest pain last night that she describes as pressure in nature lasting a few minutes, relieved with deep breathing. VS on admission: BP 118/60, HR 108, RR 20, SPO2 95%, T 98.1 Pertinent labs: H&H 10.8/33.2, potassium 3.9, BUN 15/0.8 EKG on admission: Sinus tachycardia, HR 106. Nonspecific T abnormalities and lateral leads. LA interval 160 QTC 468 Currently the patient complains of persistent cough with inability to expel mucus with associated shortness of breath. She denies any recurrence of chest pain, palpitations, nausea, abdominal pain at this time. Allergies/Medications Allergies: Coded Allergies: Penicillins (ANAPHYLAXIS 03/01/16) cyanocobalamin (vitamin B12) (CYANOCOBALAMIN) (HIVES 03/01/16) Home Med List: Albuterol Sulfate 2.5 MG/3 ML (0.083 %) VIAL.NEB 1 Vial INH/PATI Q4P PRN DYSPNEA (Reported) Cyclobenzaprine HCl 10 MG TABLET 1 TAB PO BID PRN PAIN Diltiazem HCl (Diltiazem 12HR ER) 120 MG CAP.ER.12H 1 CAP PO DAILY HEART RATE CONTROL (Reported) Fluticasone/Vilanterol (Breo Ellipta 200-25 Mcg INH) 200 MCG-25 MCG/DOSE BLST.W.DEV 1 INH INH DAILY COPD (Reported) Gabapentin (Neurontin) 300 MG CAPSULE 1 CAP PO TID pain Hydrocodone/Acetaminophen (Hydrocodon-Acetaminophen 5-300) 1 EACH TABLET 1 TAB PO Q8P PRN Low back pain Hydrocortisone 10 MG TABLET 1 TAB PO TID ADDISONS (Reported) Ipratropium/Albuterol Sulfate (Combivent Respimat Inhal [place]) 20 MCG-100 MCG/ ACTUATION MIST.INHAL 1 PO BREATHING PROBLEMS (Reported) Levothyroxine Sodium 125 MCG TABLET 1 TAB PO DAILY AC THYROID (Reported) Meclizine HCl 25 MG TABLET 1 TAB PO AT BEDTIME PRN DIZZINESS (Reported) Melatonin 3 MG TABLET 2 TAB PO QPM INSOMNIA (Reported) Meloxicam (Mobic) 7.5 MG TABLET 1 TAB PO DAILY PRN PAIN Mirabegron (Myrbetriq) 25 MG TAB.ER.24H 1 TAB PO DAILY BLADDER (Reported) Omeprazole 20 MG CAPSULE.DR 20 MG PO BID Acid reflux 2 tab BID Oxybutynin Chloride 5 MG TABLET 1 TAB PO TID URINARY INCONT (Reported) Pantoprazole Sodium 40 MG TABLET.DR 1 TAB PO DAILY GI (Reported) Trazodone HCl 50 MG TABLET 1 TAB PO QPM SLEEP (Reported) Tylenol With Codeine (Tylenol With Codeine #3 Tablet) 300 MG-30 MG TABLET 1 TAB PO BIDP PRN PAIN Review of Systems Review of Systems Constitutional: Reports: see HPI. EENTM: Reports: no symptoms. Cardiovascular: Reports: see HPI. Respiratory: Reports: see HPI. GI: Reports: no symptoms. Musculoskeletal: Reports: no symptoms. 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 Home Who Do You Live With? self Services at Home: None Smoking Status: Former Smoker ETOH Use: denies use Illicit Drug Use: denies illicit drug use Exam & Diagnostic Data Vital Signs and I&O Vital Signs Date Time Temp Pulse Resp B/P B/P Pulse O2 O2 Flow FiO2 Mean Ox Delivery Rate 04/26 0816 97 Nasal 3.0L Cannula 07/06 0800 94 Nasal 3.0L Cannula 07/06 0653 98.4 87 20 124/62 94 Nasal 2.0L Cannula 07/06 0000 Nasal 2.0L Cannula 07/05 2212 98.1 97 20 128/58 96 Nasal 2.0L Cannula 07/05 1925 97 Nasal 2.0L Cannula 07/05 1600 Nasal 2.0L Cannula 07/05 1443 97.9 107 20 118/50 95 Nasal 2.0L Cannula Intake & Output 07/06 1600 07/06 0800 07/06 0000 07/05 1600 07/05 0800 07/05 0000 Intake Total 240 1000 480 240 480 Output Total 900 300 300 200 Balance -660 700 180 240 280 Intake, IV 250 Intake, Oral 240 750 480 240 480 Number 1 Bowel Movements Output, Urine 900 300 300 200 Patient 200 lb Weight Weight Reported by Patient Measurement Method Physical Exam General Appearance: Anxious appearing Head: normal appearance Eyes: Bilateral: EOMI. Ears, Nose, Throat: hearing grossly normal Respiratory: Rapid respirations. Inspiratory stridor and rhonchi present diffusely Cardiovascular: regular rate/rhythm, tachycardia Gastrointestinal: normal bowel sounds, soft, non-tender Extremities: 1+ pitting edema BL LE Neurologic/Psych: awake, alert, Anxious appearing, pressured speech Labs/Rocky Results: Laboratory Tests 07/06 0610 Chemistry Triglycerides (<150 mg/dL) 89 Cholesterol (<200 MG/DL) 160 LDL Cholesterol, Calc (65 - 129 mg/dL) 96 HDL Cholesterol (40 - 60 mg/dL) 47 Cholesterol/HDL Ratio (0.00 - 4.23 %) 3 Assessment/Plan Assessment/Plan 76 y/o lady with a H CAD s/p stent placement, paroxysmal A. fib not on anticoagulation, HTN, HLD, Bobo syndrome with secondary hypopituitarism, [place]'s disease, secondary hypothyroidism, COPD, diverticulosis, colonic polyp , anxiety/depression was admitted with complaints of persistent cough and shortness of breath and currently being managed for COPD exacerbation, complaints of an episode of chest pain last night lasting a few minutes, pressure sensation, relieved with deep breathing. Problem list: 1. Chest pain 2. History of CAD s/p stent placement 3. History of paroxysmal A. fib not on anticoagulation 4. Anxiety 5. 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 Hypothyroidism 7. COPD 8. Iron deficiency anemia Recommendations: * Last echocardiogram 06/01/2015: LVEF 55-60%, mild tricuspid insufficiency, lipomatous atrial septal hypertrophy. Dipyridamole stress test on 04/20/2016: No EKG evidence of stress induced myocardial ischemia. Would obtain EKG and troponin. At this time no evidence of overt CHF thus will defer repeating echocardiogram * Chest pain may also likely be secondary to costochondritis in the setting of chronic cough vs anxiety * Anxiety/pressured speech and palpitations can be partly attributed to high- dose steroids. However TSH and free T4 were noticeably suppressed earlier this year. Consider repeat TFTs and consult with endocrinology for recommendations on adjusting Synthroid dosage * Check phosphorus level and titrate off supplemental O2 as tolerated. Steroid taper and COPD management per pulmonology. Patient may benefit from daytime mucolytic therapy (mucinex/acapella device/chest physioptherapy) for what she describes as inability to expel mucus with follow up cough suppresion therapies QHS * ASCVD score 15.6%. Patient will likely benefit from low to moderate dose statin therapy Problem List: 1. Chest wall pain 2. Atypical chest pain 3. CAD (coronary artery disease) 4. Paroxysmal a-fib 5. Anxiety disorder 6. Hypopituitarism Consult Acknowledgment - Thank you for your consult request.
[2016-07-06 14:08] VITALS: BP 134/56
--- NOTE | 2016-07-06 18:14 | Cons- Endocrinology ---
General Information and HPI Consulting Request Date of Consult: 07/06/16 Requested By: ,medical team Reason for Consult: Concern over her thyroid hormone replacement secondary hypothyroidism secondary adrenal insufficiency Source of Information: patient, old records Exam Limitations: poor historian History of Present Illness: This 76-year-old woman has a long-standing history of Bobo syndrome. She was diagnosed she is ago as having secondary adrenal insufficiency and secondary hypothyroidism. Most recently she has been on hydrocortisone 20 mg in the a.m. and 10 mg p.m. which should be taken around suppertime. She also is on Synthroid 0.125 mg daily. Because the patient has pituitary disease her TSH is nondetectable at all times. The patient entered the hospital with exacerbation of COPD. She also has coronary artery disease status post stent placement Olegario is my atrial fibrillation and suffers from anxiety. Past surgeries include shoulder sugar surgery as well as knee replacements and also a lumbar fusion. The patient's main complaint seems to be that her memory is getting poor. He states that her daughter gives her her pills and she has been taking them on a regular basis. She has had multiple hospital admissions for bronchitis. She went to rehabilitation because she states that she was weak and could not walk. Allergies/Medications Allergies: Coded Allergies: Penicillins (ANAPHYLAXIS 03/01/16) cyanocobalamin (vitamin B12) (CYANOCOBALAMIN) (HIVES 03/01/16) Home Med List: Albuterol Sulfate 2.5 MG/3 ML (0.083 %) VIAL.NEB 1 Vial INH/PATI Q4P PRN DYSPNEA (Reported) Cyclobenzaprine HCl 10 MG TABLET 1 TAB PO BID PRN PAIN Diltiazem HCl (Diltiazem 12HR ER) 120 MG CAP.ER.12H 1 CAP PO DAILY HEART RATE CONTROL (Reported) Fluticasone/Vilanterol (Breo Ellipta 200-25 Mcg INH) 200 MCG-25 MCG/DOSE BLST.W.DEV 1 INH INH DAILY COPD (Reported) Gabapentin (Neurontin) 300 MG CAPSULE 1 CAP PO TID pain Hydrocodone/Acetaminophen (Hydrocodon-Acetaminophen 5-300) 1 EACH TABLET 1 TAB PO Q8P PRN Low back pain Hydrocortisone 10 MG TABLET 1 TAB PO TID ADDISONS (Reported) Ipratropium/Albuterol Sulfate (Combivent Respimat Inhal [place]) 20 MCG-100 MCG/ ACTUATION MIST.INHAL 1 PO BREATHING PROBLEMS (Reported) Levothyroxine Sodium 125 MCG TABLET 1 TAB PO DAILY AC THYROID (Reported) Meclizine HCl 25 MG TABLET 1 TAB PO AT BEDTIME PRN DIZZINESS (Reported) Melatonin 3 MG TABLET 2 TAB PO QPM INSOMNIA (Reported) Meloxicam (Mobic) 7.5 MG TABLET 1 TAB PO DAILY PRN PAIN Mirabegron (Myrbetriq) 25 MG TAB.ER.24H 1 TAB PO DAILY BLADDER (Reported) Omeprazole 20 MG CAPSULE.DR 20 MG PO BID Acid reflux 2 tab BID Oxybutynin Chloride 5 MG TABLET 1 TAB PO TID URINARY INCONT (Reported) Pantoprazole Sodium 40 MG TABLET.DR 1 TAB PO DAILY GI (Reported) Trazodone HCl 50 MG TABLET 1 TAB PO QPM SLEEP (Reported) Tylenol With Codeine (Tylenol With Codeine #3 Tablet) 300 MG-30 MG TABLET 1 TAB PO BIDP PRN PAIN Review of Systems Review of Systems Constitutional: Reports: weakness. Denies: chills, fever. Cardiovascular: Denies: chest pain. Respiratory: Denies: cough, short of breath. GI: Denies: abdominal pain. Genitourinary: Reports: no symptoms. Musculoskeletal: Reports: joint pain. Skin: Reports: no symptoms. Neurological/Psychological: Reports: anxiety, cognitive dysfunction. Hematologic/Endocrine: Denies: bruising, bleeding. 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 Home Who Do You Live With? self Services at Home: None Smoking Status: Former Smoker ETOH Use: denies use Illicit Drug Use: denies illicit drug use Exam & Diagnostic Data Last 24 Hrs of Vital Signs/I&O Vital Signs Date Time Temp Pulse Resp B/P B/P Pulse O2 O2 Flow FiO2 Mean Ox Delivery Rate 07/06 1600 99 Nasal 3.0L Cannula 07/06 1408 98.0 100 20 134/56 99 Nasal 3.0L Cannula 07/06 0816 97 Nasal 3.0L Cannula 07/06 0800 94 Nasal 3.0L Cannula 07/06 0653 98.4 87 20 124/62 94 Nasal 2.0L Cannula 07/06 0000 Nasal 2.0L Cannula 07/05 2212 98.1 97 20 128/58 96 Nasal 2.0L Cannula 07/05 1925 97 Nasal 2.0L Cannula Intake & Output 07/06 1600 07/06 0800 07/06 0000 Intake Total 267 054 3815 Output Total 900 300 Balance 480 -660 700 Intake, IV 250 Intake, Oral 480 240 750 Output, Urine 900 300 Patient 200 lb Weight Physical Exam General Appearance: well developed/nourished Head: normal appearance Eyes: Bilateral: normal appearance. Neck: normal inspection, supple Respiratory: normal breath sounds Cardiovascular: regular rate/rhythm Gastrointestinal: normal bowel sounds Extremities: normal inspection Skin: intact Labs/Rocky Results: Laboratory Tests 07/06 0610 Chemistry Phosphorus (2.5 - 4.5 mg/dL) 3.6 AST (14 - 36 U/L) 22 ALT (9 - 52 U/L) 38 Triglycerides (<150 mg/dL) 89 Cholesterol (<200 MG/DL) 160 LDL Cholesterol, Calc (65 - 129 mg/dL) 96 HDL Cholesterol (40 - 60 mg/dL) 47 Cholesterol/HDL Ratio (0.00 - 4.23 %) 3 Assessment/Plan Assessment/Plan This patient has secondary adrenal insufficiency and secondary hypothyroidism. At home, she is on replacement with hydrocortisone 20 mg in the a.m. and 10 mg in the p.m. around 4 PM. The patient also is on Synthroid 125 g daily. Because of previous damage to her pituitary gland from the Bobo's syndrome, the patient does not make normal amounts of TSH. Therefore we lose TSH as a sensitive indicator of the proper amount of thyroid hormone replacement. Under these circumstances we need to go by the levels of the free T4, total T3, and the way the patient feels clinically when we are adjusting the thyroid hormone. Suggest check a free T4 and TSH levels. Continue Synthroid 0.125 mg daily for now. While the patient is on high-dose steroid therapy she does not need to take her hydrocortisone. Once she is back to baseline and no longer taking high -dose therapeutic doses of steroids we should restart her hydrocortisone replacement. Patient does not need Florinef because this is secondary adrenal insufficiency and she still makes aldosterone which is controlled by the renin- angiotensin system. In view of her complaints about memory I would measure her vitamin B12 level. Consult Acknowledgment - Thank you for your consult request.
--- NOTE | 2016-07-06 19:02 | NUR ---
PATIENT BECAME NAUSOUS AFTER DINNER. VOMITED SMALL AMOUNT OF FOOD. ZOFRAN 4MG IV GIVEN. WILL MONITOR.
[2016-07-06 23:12] VITALS: BP 120/68
[2016-07-07 06:39] VITALS: BP 118/80
--- NOTE | 2016-07-07 08:34 | PN- Pulmonary ---
Subjective HPI/Critical Care Issues: Cough and shortness of breath are improved Objective Current Medications: Current Medications Sig/Veronique Start time Last Medication Dose Route Stop Time Status Admin Acetaminophen 650 MG Q6P PRN 07/04 1515 AC 07/04 PO 1540 Albuterol Sulfate 3 ML TID 07/04 2200 AC 07/07 INH 0829 Albuterol Sulfate 3 ML Q4P PRN 07/04 1445 AC INH Aspirin Buffered 81 MG DAILY 07/05 1330 AC 07/06 PO 0927 Atorvastatin Calcium 40 MG 1700 07/06 1715 AC 07/06 PO 2121 Azithromycin 500 MG DAILY 07/06 1000 AC 07/06 PO 0928 Benzonatate 100 MG TID 07/05 1000 AC 07/06 PO 2121 Cyclobenzaprine HCl 10 MG BID PRN 07/04 1445 AC PO Diltiazem HCl 120 MG DAILY 07/05 1000 AC 07/06 PO 0928 Enoxaparin Sodium 40 MG DAILY 07/04 1519 AC 07/06 SC 0936 Gabapentin 300 MG TID 07/04 1600 AC 07/06 PO 2121 Guaifenesin/Codeine 10 ML Q4P PRN 07/04 1500 AC 07/07 Phosphate PO 0652 Levothyroxine Sodium 0.125 MG DAILY AC 07/05 0700 AC 07/07 PO 0652 Melatonin 6 MG QPM 07/04 2200 AC 07/06 PO 2254 Meloxicam 7.5 MG DAILY 07/06 1000 AC 07/06 PO 0935 Meloxicam 7.5 MG DAILY 07/04 1530 DC 07/05 PO 1232 Methylprednisolone 40 MG Q12 07/07 1000 AC IV Methylprednisolone 40 MG Q8 07/04 2200 DC 07/06 IV 07/07 0000 2124 Mirabegron 25 MG DAILY 07/05 1000 AC 07/06 PO 0927 Omeprazole 40 MG ONCE ONE 07/06 2114 DC 07/06 PO 07/06 Ondansetron HCl 4 MG Q6P PRN 07/06 1845 AC 07/06 IV 1859 Oxybutynin Chloride 5 MG TID 07/04 1600 AC 07/06 PO 2121 Oxycodone/ 1 TAB Q6P PRN 07/04 1515 AC 07/07 Acetaminophen PO 0506 Patient Medication 1 ED .STK-MED ONE 07/06 1407 DC Teaching ED 07/06 1408 Trazodone HCl 50 MG QPM 07/04 2199 AC 07/06 PO 2121 Vital Signs & I&O Last 24 Hrs of Vitals and I&O: Vital Signs Date Time Temp Pulse Resp B/P B/P Pulse O2 O2 Flow FiO2 Mean Ox Delivery Rate 07/07 0800 95 Nasal 2.0L Cannula 07/07 0639 98.0 88 20 118/80 95 Nasal 2.0L Cannula 07/07 0000 Nasal 2.0L Cannula 07/06 2312 98.4 90 20 120/68 95 Nasal 2.0L Cannula 07/06 2030 96 Nasal 2.0L Cannula 07/06 1600 99 Nasal 3.0L Cannula 07/06 1408 98.0 100 20 134/56 99 Nasal 3.0L Cannula Intake & Output 07/07 1600 07/07 0800 07/07 0000 Intake Total 100 100 Output Total Balance 100 100 Intake, Oral 100 100 Action saturation 2 L 95% exam for chest is resolved bronchospasm cardiac exam shows normal S1 and S2 without murmurs Impression/Plan Impression/Plan Impression/Plan: 76-year-old with advanced COPD admitted with an exacerbation. There is underlying coronary artery disease though there is no evidence of congestive heart failure at this time, quick flu is negative. Respiratory status appears to be slowly improving as is oxygenation Recommendations: DC IV steroids begin oral prednisone complete course of antibiotics assess room air oxygen saturation Obtain sputum C&S.. Can use cough suppressants which are helpful in minimizing her cough. Anticipate discharge tomorrow
--- NOTE | 2016-07-07 09:12 | NUR ---
NURSING NOTE: 2L NC AT REST 95%, PT ROOM AIR SATS DROPPED TO 81% JUST FROM SITTING TO STANDING IN ROOM, SHORTNESS OF BREATH NOTED; 2L NC REPLACED; PT STATES "IM FINE WITH THE OXYGEN NOW" PT FALL RISK, HX FALL, BED ALARM IN PLACE. CONT TO MONITOR. ATTENDING AND RESIDENT AWARE.
--- NOTE | 2016-07-07 12:46 | PN- Housestaff ---
JEAN PAUL KLEIN 07/07/16 1246: Subjective Follow-up For: COPD exacerbation Subjective: Seen and examined patient, no overnight events noted. States she does not feel "hundred percent" Denies fevers, chills, abdominal and on interview denied ongoing chest pain. Review of Systems Constitutional: Denies: chills, diaphoresis, fever, malaise, weakness, unexplained weight loss. Cardiovascular: Denies: chest pain, edema, orthopena, palpitations, peripheral edema, syncope. Respiratory: Reports: cough. Denies: hemoptysis, orthopnea, short of breath, sputum production, stridor, wheezing. Objective Last 24 Hrs of Vital Signs/I&O Vital Signs Date Time Temp Pulse Resp B/P B/P Pulse O2 O2 Flow FiO2 Mean Ox Delivery Rate 07/08 911 22 94 Nasal 2.0L Cannula 07/07 0912 22 81 Room Air 07/07 0911 22 95 Nasal 2.0L Cannula 07/07 0832 96 Nasal 2.0L Cannula 07/07 0800 95 Nasal 2.0L Cannula 07/07 0639 98.0 88 20 118/80 95 Nasal 2.0L Cannula 07/07 0000 Nasal 2.0L Cannula 07/06 2312 98.4 90 20 120/68 95 Nasal 2.0L Cannula 07/06 2030 96 Nasal 2.0L Cannula 07/06 1600 99 Nasal 3.0L Cannula 07/06 1408 98.0 100 20 134/56 99 Nasal 3.0L Cannula Intake & Output 07/07 1600 07/07 0800 07/07 0000 Intake Total 100 100 Output Total Balance 100 100 Intake, Oral 100 100 Physical Exam General Appearance: Alert, Oriented X3, anxious Cardiovascular: Regular Rate, Normal S1, Normal S2 Lungs: b/l rhonchi, scattered wheezes Extremities: No Edema Current Medications: Current Medications Sig/Veronique Start time Last Medication Dose Route Stop Time Status Admin Acetaminophen 650 MG Q6P PRN 07/04 1515 AC 07/04 PO 1540 Albuterol Sulfate 3 ML TID 07/04 2200 AC 07/07 INH 0829 Albuterol Sulfate 3 ML Q4P PRN 07/04 1445 AC INH Aspirin Buffered 81 MG DAILY 07/05 1330 AC 07/07 PO 0924 Atorvastatin Calcium 40 MG 1700 07/06 1715 AC 07/06 PO 2121 Azithromycin 500 MG DAILY 07/06 1000 AC 07/07 PO 0924 Benzonatate 100 MG TID 07/05 1000 AC 07/07 PO 0924 Cyclobenzaprine HCl 10 MG BID PRN 07/04 1445 AC PO Diltiazem HCl 120 MG DAILY 07/05 1000 AC 07/07 PO 0925 Enoxaparin Sodium 40 MG DAILY 07/04 1519 AC 07/07 SC 0925 Gabapentin 300 MG TID 07/04 1600 AC 07/07 PO 0924 Guaifenesin/Codeine 10 ML Q4P PRN 07/04 1500 AC 07/07 Phosphate PO 1212 Levothyroxine Sodium 0.125 MG DAILY AC 07/05 0700 AC 07/07 PO 0652 Melatonin 6 MG QPM 07/04 2200 AC 07/06 PO 2254 Meloxicam 7.5 MG DAILY 07/06 1000 AC 07/07 PO 0924 Methylprednisolone 40 MG Q12 07/07 1000 AC 07/07 IV 0925 Methylprednisolone 40 MG Q8 07/04 2200 AL 07/06 IV 07/07 0000 2124 Mirabegron 25 MG DAILY 07/05 1000 AC 07/07 PO 0924 Omeprazole 40 MG ONCE ONE 07/06 2114 DC 07/06 PO 07/06 Ondansetron HCl 4 MG Q6P PRN 07/06 1845 AC 07/06 IV 1859 Oxybutynin Chloride 5 MG TID 07/04 1600 AC 07/07 PO 0924 Oxycodone/ 1 TAB Q6P PRN 07/04 1515 AC 07/07 Acetaminophen PO 1212 Patient Medication 1 ED .STK-MED ONE 07/06 1407 AL Teaching ED 07/06 1408 Trazodone HCl 50 MG QPM 07/04 2200 07/06 PO 2121 Last 24 Hrs of Lab/Rocky Results Last 24 Hrs of Labs/Mics: Laboratory Tests 07/07/16 0610: Vitamin B12 905, TSH < 0.015 L, Free T4 1.23 Assessment/Plan Assessment: 76-year-old woman with past medical history significant for COPD (not on home oxygen), coronary artery disease s/p stents about 2 years ago, Joyce's syndrome, 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 No acute pulmonary changes on chest x-ray. Hospital day 2 afebrile, vitals stable, saturating 95% on 2L. Prior to ambuation when her oxygen was taken off she desaturated to 81% on RA Problem list acute hypoxic respiratory failure secondary COPD exacerbation Coronary disease s/p stent Dre's disease Hypothyroidism PAF Plan continue on general medicine floor, vitals per protocol continued TRC/nebs, supplemental oxygen, taper as much as possible , continue Atrovent/Proventil She will likely need supplemental oxygen at home. She is also pretty unstable with her cane and would mostly likely benefit from using a walker. rapid swab for influenza neg willl switch to PO azithro day 4/ will switch to PO prednisone Cardio,endo and pulmn on board, appreciate recomendations continue aspirin and statin atorvastatin 40mg today, baseline LFT is normal Continue home meds of gabapentin, Synthyroid, Cardizem, myrbetriq,, Ditropan Subcutaneous prophylaxis Lovenox Regular diet Full code Problem List: 1. Acute exacerbation of chronic obstructive airways disease 2. Dre's disease 3. Anxiety disorder 4. CAD (coronary artery disease) Pain Ratin Pain Location: na Pain Goal: Pain 4 or less Pain Plan: current regimen Tomorrow's Labs & Rationales: none required MERRITT BERNARD MD 07/07/16 1537: Attending MD Review Statement Attending Statement Attending MD Statement: examined this patient, discuss w/resident/PA/ROUTE RELIEF DRIVER, agreed w/resident/PA/ROUTE RELIEF DRIVER, reviewed EMR data (avail), discussed with nursing, discussed with case mgmt, reviewed images Attending Assessment/Plan: Patient is still complaining of severe shortness of breath. She is unsure if she can be switched to by mouth steroids and go home in a.m. I explained to her at length that Dr. Vogt felt comfortable sitting her to by mouth steroids. Will switch her and slowly taper by 10 mg every 3 days till she reaches her baseline dose of hydrocortisone. Cardiology has recommended that we continue her aspirin, have started her on a statin and will continue her calcium channel stewart. Will follow-up on the B12 level, appreciate endocrine follow-up and follow closely.
[2016-07-07 14:19] VITALS: BP 120/60
[2016-07-07] MEDS ORDERED: ASPIRIN EC81 M1 PO (15:37)
[2016-07-07] MEDS ORDERED: ATORVASTATIN CA40 M1 PO (15:37)
--- NOTE | 2016-07-07 15:39 | Patient Discharge Instructions ---
Discharge Instructions General Discharge Information You were seen/treated for: COPD exacerbation Special Instructions: please follow up with your PCP within two weeks of discharge please follow up with your hot saw operator within two weeks of discharge please follow up with your respiratory practitioner within two week of discharge please take your prednisone taper as directed. Acute Coronary Syndrome Inclusion Criteria At DC or during hospital stay patient has or had the following: ACS DIAGNOSIS No Discharge Core Measures Meds if any: Prescribed or Continued at Discharge Meds if any: NOT Prescribed or Continued at Discharge Congestive Heart Failure Inclusion Criteria At DC or during hospital stay patient has or had the following: CHF DIAGNOSIS No Discharge Core Measures Meds if any: Prescribed or Continued at Discharge Meds if any: NOT Prescribed or Continued at Discharge Cerebrovascular accident Inclusion Criteria At DC or during hospital stay patient has or had the following: CVA/TIA Diagnosis No Discharge Core Measures Meds if any: Prescribed or Continued at Discharge Meds if any: NOT Prescribed or Continued at Discharge Venous thromboembolism Inclusion Criteria VTE Diagnosis No VTE Type NONE VTE Confirmed by (Test) NONE Discharge Core Measures - Per Current guidelines, there needs to be overlap - treatment for the first 5 days of Warfarin therapy. - If discharged on Warfarin prior to 5 days of - overlap therapy, the patient will need to be - assessed for post discharge needs including - *Post discharge parental anticoagulation - *Warfarin and/or parental anticoagulation education - *Follow up date to check INR post discharge At least 5 days overlap therapy as Inpatient No Meds if any: Prescribed or Continued at Discharge Note: Overlap Therapy is Warfarin and Anticoagulant Meds if any: NOT Prescribed or Continued at Discharge
[2016-07-07 22:20] VITALS: BP 130/40
[2016-07-08 06:20] VITALS: BP 140/60
--- NOTE | 2016-07-08 07:16 | PN- Housestaff ---
JEAN PAUL KLEIN 07/08/16 0716: Subjective Follow-up For: COPD exacerbation Subjective: Seen and examined patient, no overnight events noted. Does not feell ready to go home today. Denies fevers, chills, abdominal pain. Review of Systems Constitutional: Denies: chills, diaphoresis, fever, malaise, weakness, unexplained weight loss. Cardiovascular: Denies: chest pain, edema, orthopena, palpitations, peripheral edema, syncope. Respiratory: Denies: cough, hemoptysis, orthopnea, short of breath, sputum production, stridor, wheezing. Objective Last 24 Hrs of Vital Signs/I&O Vital Signs Date Time Temp Pulse Resp B/P B/P Pulse O2 O2 Flow FiO2 Mean Ox Delivery Rate 07/08 0903 97 Nasal 2.0L Cannula 07/08 0800 94 Nasal 2.0L Cannula 07/08 0620 98.5 92 22 140/60 94 Nasal 2.0L Cannula 07/08 0516 95 Nasal 2.0L Cannula 07/08 0000 95 Nasal 2.0L Cannula 07/07 2220 98.1 95 18 130/40 95 Nasal 2.0L Cannula 07/07 1957 96 Nasal 2.0L Cannula 07/07 1600 Nasal 2.0L Cannula 07/07 1419 98.4 83 20 120/60 94 Nasal 2.0L Cannula Intake & Output 07/08 1600 07/08 0800 07/08 0000 Intake Total 240 240 Output Total 800 450 Balance -560 -210 Intake, Oral 240 240 Output, Urine 800 450 Physical Exam General Appearance: Alert, Oriented X3, Cooperative, No Acute Distress Cardiovascular: Normal S1, Normal S2 Lungs: Clear to Auscultation, Normal Air Movement Abdomen: Soft Extremities: No Edema Current Medications: Current Medications Sig/Veronique Start time Last Medication Dose Route Stop Time Status Admin Acetaminophen 650 MG Q6P PRN 07/04 1515 AC 07/04 PO 1540 Albuterol Sulfate 3 ML TID 07/04 2200 AC 07/08 INH 0901 Albuterol Sulfate 3 ML Q4P PRN 07/04 1445 AC INH Aspirin Buffered 81 MG DAILY 07/05 1330 AC 07/08 PO 0948 Atorvastatin Calcium 40 MG 1700 07/06 1715 AC 07/07 PO 1625 Azithromycin 500 MG DAILY 07/06 1000 AC 07/08 PO 0948 Benzonatate 100 MG TID 07/05 1000 AC 07/08 PO 0948 Cyclobenzaprine HCl 10 MG BID PRN 07/04 1445 AC PO Diltiazem HCl 120 MG DAILY 07/05 1000 AC 07/08 PO 0948 Enoxaparin Sodium 40 MG DAILY 07/04 1519 AC 07/08 SC 0948 Gabapentin 300 MG TID 07/04 1600 AC 07/08 PO 0948 Guaifenesin/Codeine 10 ML Q4P PRN 07/04 1500 AC 07/08 Phosphate PO 0509 Levothyroxine Sodium 0.112 MG DAILY AC 07/09 0700 AC PO Levothyroxine Sodium 0.125 MG DAILY AC 07/05 0700 DC 07/08 PO 0509 Melatonin 6 MG QPM 07/04 2200 AC 07/07 PO 2209 Meloxicam 7.5 MG DAILY 07/06 1000 AC 07/08 PO 0948 Methylprednisolone 40 MG Q12 07/07 1000 DC 07/07 IV 07/08 0000 2210 Mirabegron 25 MG DAILY 07/05 1000 AC 07/08 PO 0949 Omeprazole 20 MG DAILY AC 07/08 1030 AC 07/08 PO 1154 Ondansetron HCl 4 MG Q6P PRN 07/06 1845 AC 07/06 IV 1859 Oxybutynin Chloride 5 MG TID 07/04 1600 AC 07/08 PO 0948 Oxycodone/ 1 TAB Q6P PRN 07/04 1515 AC 07/08 Acetaminophen PO 0659 Prednisone 60 MG DAILY 07/08 1000 AC 07/08 PO 0948 Trazodone HCl 50 MG QPM 07/04 2200 AC 07/07 PO 2209 Assessment/Plan Assessment: 76-year-old woman with past medical history significant for COPD (not on home oxygen), coronary artery disease s/p stents about 2 years ago, Joyce's syndrome, 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 No acute pulmonary changes on chest x-ray. Hospital day 3 afebrile, vitals stable, saturating 95% on 2L. Clinical improvement on ascultation of chest. Problem list acute hypoxic respiratory failure secondary COPD exacerbation Coronary disease s/p stent Butler's disease Hypothyroidism PAF Plan continue on general medicine floor, vitals per protocol continued TRC/nebs, supplemental oxygen, taper as much as possible, continue Atrovent/Proventil She will need supplemental oxygen at home. She is also pretty unstable with her cane and would mostly likely benefit from using a walker. completed 5 day course of azithro continue PO prednisone, will be discharged on taper Cardio,endo and pulmn on board, appreciate recomendations continue aspirin and statin atorvastatin 40mg today, baseline LFT is normal synthroid dose decreased today. Continue home meds of gabapentin, Cardizem, myrbetriq,, Ditropan Subcutaneous prophylaxis Lovenox Regular diet Full code Problem List: 1. Butler's disease 2. Anxiety disorder 3. CAD 4. COPD with acute exacerbation Pain Ratin Pain Location: na Pain Goal: Pain 4 or less Pain Plan: current regimen Tomorrow's Labs & Rationales: none required JOANA ZAVALETA,MERRITT 07/08/16 1324: Attending MD Review Statement Attending Statement Attending MD Statement: examined this patient, discuss w/resident/PA/DIRECTOR OF CONSUMER MARKETING, agreed w/resident/PA/DIRECTOR OF CONSUMER MARKETING, reviewed EMR data (avail), discussed with nursing, discussed with case mgmt, reviewed images Attending Assessment/Plan: She'll says she still feels quite short of breath and she doesn't feel ready to go home today. This is despite me telling her multiple times that objectively she does look better. We did speak to the auto body straightener and the stripping machine operator. We switched her to by mouth prednisone by mouth and are tapering by 10 mg every 3 days to she reaches about 20-30 mg, at which point she'll switch to her usual hydrocortisone 20 in the morning and 10 at bedtime. Will finish a 5-7 day course of antibiotics. She is going to go home on oxygen which is new for her. We will check a room air sat on ambulation and at rest and will anticipate that if she is better we'll send her out in the morning.
--- NOTE | 2016-07-08 07:54 | PN- Pulmonary ---
Subjective HPI/Critical Care Issues: Patient had episode of shortness of breath yesterday but overall is slowly improving Objective Current Medications: Current Medications Sig/Veronique Start time Last Medication Dose Route Stop Time Status Admin Acetaminophen 650 MG Q6P PRN 07/04 1515 AC 07/04 PO 1540 Albuterol Sulfate 3 ML TID 07/04 2200 AC 07/08 INH 0457 Albuterol Sulfate 3 ML Q4P PRN 07/04 1445 AC INH Aspirin Buffered 81 MG DAILY 07/05 1330 AC 07/07 PO 0924 Atorvastatin Calcium 40 MG 1700 07/06 1715 AC 07/07 PO 1625 Azithromycin 500 MG DAILY 07/06 1000 AC 07/07 PO 0924 Benzonatate 100 MG TID 07/05 1000 AC 07/07 PO 2210 Cyclobenzaprine HCl 10 MG BID PRN 07/04 1445 AC PO Diltiazem HCl 120 MG DAILY 07/05 1000 AC 07/07 PO 0925 Enoxaparin Sodium 40 MG DAILY 07/04 1519 AC 07/07 SC 0925 Gabapentin 300 MG TID 07/04 1600 AC 07/07 PO 2209 Guaifenesin/Codeine 10 ML Q4P PRN 07/04 1500 AC 07/08 Phosphate PO 0509 Levothyroxine Sodium 0.125 MG DAILY AC 07/05 0700 AC 07/08 PO 0509 Melatonin 6 MG QPM 07/04 2200 AC 07/07 PO 2209 Meloxicam 7.5 MG DAILY 07/06 1000 AC 07/07 PO 0924 Methylprednisolone 40 MG Q12 07/07 1000 DC 07/07 IV 07/08 0000 2210 Mirabegron 25 MG DAILY 07/05 1000 AC 07/07 PO 0924 Ondansetron HCl 4 MG Q6P PRN 07/06 1845 AC 07/06 IV 1859 Oxybutynin Chloride 5 MG TID 07/04 1600 AC 07/07 PO 2209 Oxycodone/ 1 TAB Q6P PRN 07/04 1515 AC 07/08 Acetaminophen PO 0659 Prednisone 60 MG DAILY 07/08 1000 AC PO Trazodone HCl 50 MG QPM 07/04 2200 AC 07/07 PO 2209 Vital Signs & I&O Last 24 Hrs of Vitals and I&O: Vital Signs Date Time Temp Pulse Resp B/P B/P Pulse O2 O2 Flow FiO2 Mean Ox Delivery Rate 07/08 0620 98.5 92 22 140/60 94 Nasal 2.0L Cannula 07/08 0516 95 Nasal 2.0L Cannula 07/08 0000 95 Nasal 2.0L Cannula 07/07 2220 98.1 95 18 130/40 95 Nasal 2.0L Cannula 07/07 1957 96 Nasal 2.0L Cannula 07/07 1600 Nasal 2.0L Cannula 07/07 1419 98.4 83 20 120/60 94 Nasal 2.0L Cannula 07/07 0912 22 94 Nasal 2.0L Cannula 07/07 0912 22 81 Room Air 07/07 0911 22 95 Nasal 2.0L Cannula 07/07 0832 96 Nasal 2.0L Cannula 07/07 0800 95 Nasal 2.0L Cannula Intake & Output 07/08 0800 07/08 0000 07/07 1600 Intake Total 240 240 930 Output Total 219 664 7633 Balance -560 -210 -120 Intake, IV 30 Intake, Oral 240 240 900 Number 0 Bowel Movements Output, Urine [phone] Since saturation 2 L 94% exam for chest shows diminished breath sounds there are no wheezes cardiac exam shows a regular S1 and S2 without murmurs Impression/Plan Impression/Plan Impression/Plan: 76-year-old with advanced COPD admitted with an exacerbation. There is underlying coronary artery disease though there is no evidence of congestive heart failure at this time, quick flu is negative. Respiratory status appears to be slowly improving as is oxygenation Recommendations: DC IV steroids begin oral prednisone complete course of antibiotics assess room air oxygen saturation Obtain sputum C&S.. Can use cough suppressants which are helpful in minimizing her cough. Ambulate the patient and evaluate oxygen saturations and degree of dyspnea.
[2016-07-08] MEDS ORDERED: PREDNISONE10 M2 PO ×2 (08:44→11:01)
[2016-07-08] MEDS ORDERED: PREDNISONE20 M1 PO (08:48)
--- NOTE | 2016-07-08 08:49 | PN- Endocrinology ---
Assessment/Plan Assessment: Patient states she had a coughing fit this morning. Now she feels improved. Her thyroid lab work has returned. The patient's TSH is less than 0.15. Her free T4 is 1.23. Her vitamin B-12 is 905. As mentioned before because the patient has pituitary disease we have lost the ability to use the TSH is a sensitive indicator of the amount of thyroid hormone that she should be on. However since she appears to be so anxious we can reduce the dose of levothyroxin to 112 g daily. Plan: Suggest reduce the dose of levothyroxine to 112 g daily as mentioned above. Repeat the patient's free T4 as an outpatient in about 1 month. Resume her replacement for adrenal insufficiency with hydrocortisone 20 mg in the a.m. and 10 mg at 4 PM when she is off high-dose prednisone. Subjective Subjective: Had coughing fit this morning Objective Last 24 Hrs of Vital Signs/I&O Vital Signs Date Time Temp Pulse Resp B/P B/P Pulse O2 O2 Flow FiO2 Mean Ox Delivery Rate 07/08 0620 98.5 92 22 140/60 94 Nasal 2.0L Cannula 07/08 0516 95 Nasal 2.0L Cannula 07/08 0000 95 Nasal 2.0L Cannula 07/070 98.1 95 18 130/40 95 Nasal 2.0L Cannula 07/07 1956 96 Nasal 2.0L Cannula 07/07 1600 Nasal 2.0L Cannula 07/07 1419 98.4 83 20 120/60 94 Nasal 2.0L Cannula 07/07 0912 22 94 Nasal 2.0L Cannula 07/07 0912 22 81 Room Air 07/07 0911 22 95 Nasal 2.0L Cannula Intake & Output 07/08 1600 07/08 0800 07/08 0000 Intake Total 240 240 Output Total 800 450 Balance -560 -210 Intake, Oral 240 240 Output, Urine 800 450 Vital Signs Date Time Temp Pulse Resp B/P B/P Pulse O2 O2 Flow FiO2 Mean Ox Delivery Rate 07/08 0620 98.5 92 22 140/60 94 Nasal 2.0L Cannula 07/08 0516 95 Nasal 2.0L Cannula 07/08 0000 95 Nasal 2.0L Cannula 07/07 2220 98.1 95 18 130/40 95 Nasal 2.0L Cannula 07/07 1956 96 Nasal 2.0L Cannula 07/07 1600 Nasal 2.0L Cannula 07/07 1419 98.4 83 20 120/60 94 Nasal 2.0L Cannula 07/07 0812 22 94 Nasal 2.0L Cannula 07/07 0912 22 81 Room Air 07/07 0911 22 95 Nasal 2.0L Cannula Intake & Output 07/08 1600 07/08 0800 07/08 0000 Intake Total 240 240 Output Total 800 450 Balance -560 -210 Intake, Oral 240 240 Output, Urine 800 450 Physical Exam General Appearance: alert, awake, anxious Neck: normal inspection Respiratory: decreased breath sounds Cardiovascular: regular rate/rhythm Abdomen: normal bowel sounds Current Medications: Current Medications Sig/Veronique Start time Last Medication Dose Route Stop Time Status Admin Acetaminophen 650 MG Q6P PRN 07/04 1515 AC 07/04 PO 1540 Albuterol Sulfate 3 ML TID 07/04 2200 AC 07/08 INH 0457 Albuterol Sulfate 3 ML Q4P PRN 07/04 1445 AC INH Aspirin Buffered 81 MG DAILY 07/05 1330 AC 07/07 PO 0924 Atorvastatin Calcium 40 MG 1700 07/06 1715 AC 07/07 PO 1625 Azithromycin 500 MG DAILY 07/06 1000 AC 07/07 PO 0924 Benzonatate 100 MG TID 07/05 1000 AC 07/07 PO 2210 Cyclobenzaprine HCl 10 MG BID PRN 07/04 1445 AC PO Diltiazem HCl 120 MG DAILY 07/05 1000 AC 07/07 PO 0925 Enoxaparin Sodium 40 MG DAILY 07/04 1519 AC 07/07 SC 0925 Gabapentin 300 MG TID 07/04 1600 AC 07/07 PO 2209 Guaifenesin/Codeine 10 ML Q4P PRN 07/04 1500 AC 07/08 Phosphate PO 0509 Levothyroxine Sodium 0.125 MG DAILY AC 07/05 0700 AC 07/08 PO 0509 Melatonin 6 MG QPM 07/04 2200 AC 07/07 PO 2209 Meloxicam 7.5 MG DAILY 07/06 1000 AC 07/07 PO 0924 Methylprednisolone 40 MG Q12 07/07 1000 DC 07/07 IV 07/08 0000 2210 Mirabegron 25 MG DAILY 07/05 1000 AC 07/07 PO 0924 Ondansetron HCl 4 MG Q6P PRN 07/06 1845 AC 07/06 IV 1859 Oxybutynin Chloride 5 MG TID 07/04 1600 AC 07/07 PO 2208 Oxycodone/ 1 TAB Q6P PRN 07/04 1515 AC 07/08 Acetaminophen PO 0659 Prednisone 60 MG DAILY 07/08 1000 AC PO Trazodone HCl 50 MG QPM 07/04 2199 AC 07/07 PO 2208
[2016-07-08] MEDS ORDERED: GUAIFENESIN AC473 M2 PO (08:53)
[2016-07-08] MEDS ORDERED: CORTEF20 M1 PO (11:03)
[2016-07-08] MEDS ORDERED: SYNTHROID112 MCG PO (13:07)
[2016-07-08 13:43] VITALS: BP 132/76
--- NOTE | 2016-07-08 13:44 | NUR ---
NURSING NOTE: O2 2L NC 96% AT REST, ROOM AIR AT REST 95%, PT AMBULATED WITH SUPERVISION AND PTS OWN CANE; ROOM AIR SAT REMAINED 94%. PT SETTLED BACK INTO ROOM, BED ALARM IN PLACE. O2 DCD/ DR TAYLOR AWARE
--- NOTE | 2016-07-08 16:59 | PN- Cardiology ---
Subjective Subjective: Stable and improving with no new cardiac symptoms or chest discomfort Objective Vital Signs and I&Os Vital Signs Date Time Temp Pulse Resp B/P B/P Pulse O2 O2 Flow FiO2 Mean Ox Delivery Rate 07/08 1344 20 94 Room Air 07/08 1344 20 95 Room Air 07/08 1343 97.8 90 22 132/76 96 Nasal 2.0L Cannula 07/08 0903 97 Nasal 2.0L Cannula 07/08 0800 94 Nasal 2.0L Cannula 07/08 0620 98.5 92 22 140/60 94 Nasal 2.0L Cannula 07/08 0516 95 Nasal 2.0L Cannula 07/08 0000 95 Nasal 2.0L Cannula 07/07 2220 98.1 95 18 130/40 95 Nasal 2.0L Cannula 07/07 1957 96 Nasal 2.0L Cannula Intake & Output 07/08 1600 07/08 0800 07/08 0000 07/07 1600 07/07 0800 07/07 0000 Intake Total 910 240 240 930 100 100 Output Total 850 933 674 3002 Balance 60 -560 -210 -120 100 100 Intake, IV 10 30 Intake, Oral 900 240 240 900 100 100 Number 0 0 Bowel Movements Output, Urine 850 288 032 9199 Current Medications: Current Medications Sig/Veronique Start time Last Medication Dose Route Stop Time Status Admin Acetaminophen 650 MG Q6P PRN 07/04 1515 AC 07/04 PO 1540 Albuterol Sulfate 3 ML TID 07/04 2200 AC 07/08 INH 1405 Albuterol Sulfate 3 ML Q4P PRN 07/04 1445 AC INH Aspirin Buffered 81 MG DAILY 07/05 1330 AC 07/08 PO 0948 Atorvastatin Calcium 40 MG 1700 07/06 1715 AC 07/07 PO 1625 Azithromycin 500 MG DAILY 07/06 1000 AC 07/08 PO 0948 Benzonatate 100 MG TID 07/05 1000 AC 07/08 PO 0948 Cyclobenzaprine HCl 10 MG BID PRN 07/04 1445 AC PO Diltiazem HCl 120 MG DAILY 07/05 1000 AC 07/08 PO 0948 Enoxaparin Sodium 40 MG DAILY 07/04 1519 AC 07/08 SC 0948 Gabapentin 300 MG TID 07/04 1600 AC 07/08 PO 0948 Guaifenesin/Codeine 10 ML Q4P PRN 07/04 1500 AC 07/08 Phosphate PO 1324 Levothyroxine Sodium 0.112 MG DAILY AC 07/09 0700 AC PO Levothyroxine Sodium 0.125 MG DAILY AC 07/05 0700 DC 07/08 PO 0509 Melatonin 6 MG QPM 07/04 2200 AC 07/07 PO 2209 Meloxicam 7.5 MG DAILY 07/06 1000 AC 07/08 PO 0948 Methylprednisolone 40 MG Q12 07/07 1000 DC 07/07 IV 07/08 0000 2210 Mirabegron 25 MG DAILY 07/05 1000 AC 07/08 PO 0949 Omeprazole 20 MG DAILY AC 07/08 1030 AC 07/08 PO 1154 Ondansetron HCl 4 MG Q6P PRN 07/06 1845 AC 07/06 IV 1859 Oxybutynin Chloride 5 MG TID 07/04 1600 AC 07/08 PO 0948 Oxycodone/ 1 TAB Q6P PRN 07/04 1515 AC 07/08 Acetaminophen PO 1324 Prednisone 60 MG DAILY 07/08 1000 AC 07/08 PO 0948 Trazodone HCl 50 MG QPM 07/04 2200 AC 07/07 PO 2209 Results Last 48 Hrs of Labs/Mics: Laboratory Tests 07/07/16 0610: Vitamin B12 905, TSH < 0.015 L, Free T4 1.23 Assessment/Plan Assessment/Plan Assessment: 1. Chest pain 2. History of CAD s/p stent placement 3. History of paroxysmal A. fib not on anticoagulation 4. Anxiety 5. 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 Hypothyroidism 7. COPD 8. Iron deficiency anemia Recommendations: - COntinue current management. - At the present time there is no evidence of any acute cardiac issues. - The patient will followup with me as outpatient. Continue telemetry? No
[2016-07-08 22:45] VITALS: BP 128/62
[2016-07-09 06:18] VITALS: BP 124/60
--- NOTE | 2016-07-09 07:53 | PN- Housestaff ---
JEAN PAUL KLEIN 07/09/16 0753: Subjective Follow-up For: COPD exacerbation Subjective: Seen and examined patient, no overnight events noted. Offers no complaints. Denies fevers, chills, abdominal pain. Review of Systems Constitutional: Denies: chills, diaphoresis, fever, malaise, weakness, unexplained weight loss. Cardiovascular: Denies: chest pain, edema, orthopena, palpitations, peripheral edema, syncope. Respiratory: Denies: cough, hemoptysis, orthopnea, short of breath, sputum production, stridor, wheezing. Objective Last 24 Hrs of Vital Signs/I&O Vital Signs Date Time Temp Pulse Resp B/P B/P Pulse O2 O2 Flow FiO2 Mean Ox Delivery Rate 07/09 0851 96 Room Air 07/09 0800 Room Air 07/09 0618 98.1 81 18 124/60 94 Room Air 07/09 0000 93 Room Air 07/08 2245 98.4 85 18 128/62 93 Room Air 07/08 2009 96 Room Air 07/08 1600 95 Room Air 07/08 1344 20 94 Room Air 07/08 1344 20 95 Room Air 07/08 1343 97.8 90 22 132/76 96 Nasal 2.0L Cannula Intake & Output 07/09 1600 07/09 0800 07/09 0000 Intake Total 240 340 Output Total 600 Balance -360 340 Intake, Oral 240 340 Number 2 Bowel Movements Output, Urine 600 Physical Exam General Appearance: Alert, Oriented X3, Cooperative, No Acute Distress Cardiovascular: Regular Rate, Normal S1, Normal S2 Lungs: Clear to Auscultation, Normal Air Movement Abdomen: Normal Bowel Sounds, Soft, No Tenderness Extremities: No Edema Current Medications: Current Medications Sig/Veronique Start time Last Medication Dose Route Stop Time Status Admin Acetaminophen 650 MG Q6P PRN 07/04 1515 AC 07/09 PO 0511 Albuterol Sulfate 3 ML TID 07/04 2200 AC 07/09 INH 0835 Albuterol Sulfate 3 ML Q4P PRN 07/04 1445 AC INH Aspirin Buffered 81 MG DAILY 07/05 1330 AC 07/09 PO 0747 Atorvastatin Calcium 40 MG 1700 07/06 1715 AC 07/08 PO 1805 Azithromycin 500 MG DAILY 07/06 1000 AC 07/09 PO 0747 Benzonatate 100 MG TID 07/05 1000 AC 07/09 PO 0747 Cyclobenzaprine HCl 10 MG BID PRN 07/04 1445 AC PO Diltiazem HCl 120 MG DAILY 07/05 1000 AC 07/09 PO 0747 Enoxaparin Sodium 40 MG DAILY 07/04 1519 AC 07/09 SC 0747 Gabapentin 300 MG TID 07/04 1600 AC 07/09 PO 0747 Guaifenesin/Codeine 10 ML Q4P PRN 07/04 1500 AC 07/09 Phosphate PO 0904 Levothyroxine Sodium 0.112 MG DAILY AC 07/09 0700 AC 07/09 PO 0511 Levothyroxine Sodium 0.125 MG DAILY AC 07/05 0700 DC 07/08 PO 0509 Melatonin 6 MG QPM 07/04 2200 AC 07/08 PO 2116 Meloxicam 7.5 MG DAILY 07/06 1000 AC 07/09 PO 0747 Mirabegron 25 MG DAILY 07/05 1000 AC 07/09 PO 0747 Omeprazole 20 MG DAILY AC 07/08 1030 AC 07/09 PO 0511 Ondansetron HCl 4 MG Q6P PRN 07/06 1845 AC 07/06 IV 1859 Oxybutynin Chloride 5 MG TID 07/04 1600 AC 07/09 PO 0747 Oxycodone/ 1 TAB Q6P PRN 07/04 1515 AC 07/09 Acetaminophen PO 0746 Prednisone 60 MG DAILY 07/08 1000 AC 07/09 PO 0747 Trazodone HCl 50 MG QPM 07/04 2200 AC 07/08 PO 211 Assessment/Plan Assessment: 76-year-old woman with past medical history significant for COPD (not on home oxygen), coronary artery disease s/p stents about 2 years ago, Joyce's syndrome, 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 No acute pulmonary changes on chest x-ray. Hospital day 4 afebrile, vitals stable, saturating 94% on room air. Normal O2 sat saturations, on ambulation yesterday Problem list acute hypoxic respiratory failure secondary COPD exacerbation Coronary disease s/p stent Candler's disease Hypothyroidism PAF Plan continue on general medicine floor, vitals per protocol continued TRC/nebs, continue Atrovent/Proventil completed 5 day course of azithro continue PO prednisone, will be discharged on taper Cardio,endo and pulmn on board, appreciate recomendations continue aspirin and statin atorvastatin 40mg today, baseline LFT is normal synthroid dose decreased today. Continue home meds of gabapentin, Cardizem, myrbetriq,, Ditropan Subcutaneous prophylaxis Lovenox Regular diet Full code Medically stable for discharge to home today Problem List: 1. Acute exacerbation of chronic obstructive airways disease 2. Candler's disease 3. Anxiety disorder 4. CAD 5. COPD EXACERBATION Pain Ratin Pain Location: Not applicable Pain Goal: Pain 4 or less Pain Plan: Current regimen Tomorrow's Labs & Rationales: None required MERRITT BERNARD MD 07/09/16 1120: Attending MD Review Statement Attending Statement Attending MD Statement: examined this patient, discuss w/resident/PA/AGRICULTURE WORKER, agreed w/resident/PA/AGRICULTURE WORKER, reviewed EMR data (avail), discussed with nursing, discussed with case mgmt, reviewed images Attending Assessment/Plan: Patient walked with nursing yesterday and her room air sat was 95% after ambulation 94%. We have her on prednisone and the plan is to taper by 10 mg every 3 days till she reaches about 20-30 mg at which point she will restart her hydrocortisone 20 in the morning and 10 at bedtime. Dheeraj Duarte MD was concerned about hyperthyroidism and has cut her dose of levothyroxine and she understands the need to follow-up with Dr. Duarte, Dr. Vogt and her PCP closely. She is requesting 12 Percocets on discharge. I explained to her at length the worry of polypharmacy and narcotic abuse and that she needs to monitor her use closely.
[2016-07-09] MEDS ORDERED: PERCOCET 5-3251 EACH PO (09:43)
--- NOTE | 2016-07-09 10:32 | Discharge Summary ---
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 She was on her way to go to her patient support assistant's office Dr. Vogt when an episode of coughing attack. Endorsed 2 day history of nonproductive cough associated with documented fevers 101-102 at home. Reported some shortness of breath on minimal exertion. Her daughter who lives with her also had similar symptoms. Denied chest pain, dizziness, worsening lower extremity swelling, orthopnea. In the ER was noted to be in acute hypoxemic respiratory failure with a sat that went down to 88-89% on room air when she tried to ambulate and get out of the bed. No evidence of pneumonia on chest x-ray. Admitted to general medicine floor and the following issues were addressed: Acute hypoxic respiratory failure : Secondary to COPD exacerbation. Influenza a and B rapid flu test negative. She received TRC/nebs, supplemental oxygen which was tapered as needed. She was initially started on IV Solu-Medrol which was then tapered and switched to by mouth prednisone. Her patient support assistant, Dr. Vogt followed her while in the hospital. Her Atrovent/Proventil was continued. She was discharged on a prednisone taper. Coronary disease: Dr. Doran was consulted, we started Ms. Cote on baby aspirin as well as a statin. Her baseline lipid panel and her LFTs were within normal limits. It was also some question as to whether patient had proximal A. fib in the past per [facility] records we do not have any indication that she did not have episodes of atrial fibrillation. Her cardiazem was continued. Colrain's disease Dheeraj Duarte MD her pneumatic tube repairer saw the patient in the hospital. He recommended that once her prednisone taper is done she is to resume hair home dose of hydrocortisone of 20 mg in the morning and 10 mg at 4 PM. Hypothyroidism Dheeraj Duarte MD felt that her anxiousness could partially be contributed by excess Levothyroxine. Her dose was decreased to 112 g Her home meds of Gabapentin, Myrbetriq,Ditropan were continued Allergies: Coded Allergies: Penicillins (ANAPHYLAXIS 03/01/16) cyanocobalamin (vitamin B12) (CYANOCOBALAMIN) (HIVES 03/01/16) Significant Procedures: SERVICE DATE: 07/04/16 EXAM TYPE: RAD - XRY-CHEST XRAY, PA AND LATERAL FINDINGS: Lungs are hyperexpanded with subtle architectural distortion, consistent with known emphysema. No consolidation, pneumothorax, or pleural effusion. Cardiac and mediastinal contours are normal. Pulmonary vasculature is unremarkable. Trachea is midline. Bilateral shoulder arthroplasties are partially imaged. Bones are osteopenic. IMPRESSION: No acute pulmonary findings. Disposition Summary Disposition Principal Diagnosis: Acute hypoxic respiratory failure secondary COPD exacerbation Additional Diagnosis: Coronary disease s/p stent Dre's disease Hypothyroidism Discharge Disposition: home or self care Discharge Instructions General Discharge Information Code Status: Full Code Patient's Diet: Regular diet Patient's Activity: as tolerated Follow-Up Instructions/Appts: follow up with PCP within two weeks of discharge follow up with your pneumatic tube repairer within two weeks of discharge follow up with your patient support assistant within two week of discharge please take your prednisone taper as directed. Medications at Discharge Discharge Medications: Stop taking the following medications: Levothyroxine Sodium (Levothyroxine Sodium) 125 MCG TABLET ORAL DAILY BEFORE BREAKFAST Qty = 45 Omeprazole (Omeprazole) 20 MG CAPSULE.DR ORAL TWICE DAILY Days = 10 Continue taking these medications: Diltiazem HCl (Diltiazem 12HR ER) 120 MG CAP.ER.12H 1 Capsule ORAL DAILY Comments: Last Taken:07/09/16 Time:9AM Meclizine HCl (Meclizine HCl) 25 MG TABLET 1 Tablet ORAL AT BEDTIME as needed for DIZZINESS Qty = 30 Comments: NOT GIVEN IN HOSPITAL Oxybutynin Chloride (Oxybutynin Chloride) 5 MG TABLET 1 Tablet ORAL THREE TIMES DAILY Comments: Last Taken:07/09/16 Time:9AM Mirabegron (Myrbetriq) 25 MG TAB.ER.24H 1 Tablet ORAL DAILY Qty = 30 Comments: NOT GIVEN IN HOSPITAL Hydrocortisone (Hydrocortisone) 10 MG TABLET 1 Tablet ORAL 1600 Qty = 90 Instructions: PLEASE STARTING TAKING ON 07/23/16 AT SUPPERTIME Comments: NOT GIVEN IN HOSPITAL Melatonin (Melatonin) 3 MG TABLET 2 Tablet ORAL Every night Comments: Last Taken:07/09/16 Time:9PM Pantoprazole Sodium (Pantoprazole Sodium) 40 MG TABLET.DR 1 Tablet ORAL DAILY Qty = 30 Comments: NOT GIVEN IN HOSPITAL Hydrocodone/Acetaminophen (Hydrocodon-Acetaminophen 5-300) 1 EACH TABLET 1 Tablet ORAL EVERY 8 HOURS NEEDED as needed for Low back pain Qty = 6 Comments: NOT GIVEN IN HOSPITAL Cyclobenzaprine HCl (Cyclobenzaprine HCl) 10 MG TABLET 1 Tablet ORAL TWICE DAILY as needed for PAIN Qty = 20 Comments: NOT GIVEN IN HOSPITAL Meloxicam (Mobic) 7.5 MG TABLET 1 Tablet ORAL DAILY as needed for PAIN Qty = 7 Comments: Last Taken: 07/09/16 Time: 9AM Gabapentin (Neurontin) 300 MG CAPSULE 1 Capsule ORAL THREE TIMES DAILY Qty = 12 Comments: Last Taken: 07/09/16 Time: 9AM Trazodone HCl (Trazodone HCl) 50 MG TABLET 1 Tablet ORAL Every night Qty = 30 Comments: Last Taken: 07/09/16 Time: 9PM Albuterol Sulfate (Albuterol Sulfate) 2.5 MG/3 ML (0.083 %) VIAL.NEB 1 Vial Inhale Solution EVERY 4 HOURS NEEDED as needed for DYSPNEA Comments: NOT GIVEN IN HOSPITAL Tylenol With Codeine (Tylenol With Codeine #3 Tablet) 300 MG-30 MG TABLET 1 Tablet ORAL 2 x Daily as needed as needed for PAIN Qty = 6 Comments: NOT GIVEN IN HOSPITAL Ipratropium/Albuterol Sulfate (Combivent Respimat Inhal [place]) 20 MCG-100 MCG/ ACTUATION MIST.INHAL 1 ORAL Qty = 4 Comments: NOT GIVEN IN [facility] Fluticasone/Vilanterol (Breo Ellipta 200-25 Mcg INH) 200 MCG-25 MCG/DOSE BLST.W.DEV 1 Inhalation Inhale through mouth DAILY Qty = 60 Comments: NOT GIVEN IN HOSPITAL Hydrocortisone (Cortef) 20 MG TABLET 1 Tablet ORAL DAILY @8AM Qty = 30 Instructions: PLEASE START AFTER YOUR PREDNISONE TAPER ON 07/23/16 Comments: NOT GIVEN IN HOSPITAL Start taking the following new medications: Prednisone (Prednisone) 10 MG TABLET 10 Milligram ORAL See Instructions Qty = 20 No Refills Instructions: On Take 07/09-07/11 60 MG 5/2-5/ 50 MG 5/5-07/17 40 MG 5/-07/20 30 MG 07/21-07/23 20 MG then stop Comments: Last Taken: 07/09/16 Time: 9AM Atorvastatin Calcium (Atorvastatin Calcium) 40 MG TABLET 40 Milligram ORAL 5 PM Days = 30 No Refills Comments: Last Taken: 07/09/16 Time: 1700 Aspirin (Ecotrin*) 81 MG TABLET.DR 81 Milligram ORAL DAILY Days = 30 No Refills Comments: Last Taken:07/09/16 Time:9AM Levothyroxine Sodium (Synthroid) 112 MCG TABLET 0.112 Milligram ORAL DAILY BEFORE BREAKFAST Qty = 30 No Refills Comments: Last Taken: 07/09/16 Time: 9AM Oxycodone HCl/Acetaminophen (Percocet 5-325 MG Tablet) 5 MG-325 MG TABLET 1 Tablet ORAL EVERY SIX HOURS NEEDED as needed for PAIN SCALE 4-6 ( MODERATE) Qty = 12 No Refills Comments: Last Taken: 07/09/16 Time: 9AM Codeine Phosphate/Guaifenesi (Guaifenesin AC Cough Syrup) 10 MG-100 MG/5 ML LIQUID 10 Milliliters ORAL EVERY 4-6 HOURS NEEDED as needed for COUGH Qty = 1 No Refills Comments: Last Taken: 07/09/16 Time: 1345 Copies To: JORGE CHICAS DO Attending Review Statement Documenting Attending: JOANA ZAVALETA,MERRITT Mosley
--- NOTE | 2016-07-09 13:45 | PN- Pulmonary ---
Subjective HPI/Critical Care Issues: Seen and examined patient, no overnight events noted. Offers no complaints. Denies fevers, chills, abdominal pain. Review of Systems Constitutional: Denies: chills, diaphoresis, fever, malaise, weakness, unexplained weight loss. Cardiovascular: Denies: chest pain, edema, orthopena, palpitations, peripheral edema, syncope. Respiratory: Denies: cough, hemoptysis, orthopnea, short of breath, sputum production, stridor, wheezing. Objective Current Medications: Current Medications Sig/Veronique Start time Last Medication Dose Route Stop Time Status Admin Acetaminophen 650 MG .STK-MED ONE 07/09 0512 DC PO 07/09 0513 Acetaminophen 650 MG Q6P PRN 07/04 1515 AC 07/09 PO 0511 Albuterol Sulfate 3 ML TID 07/04 2200 AC 07/09 INH 1334 Albuterol Sulfate 3 ML Q4P PRN 07/04 1445 AC INH Aspirin Buffered 81 MG DAILY 07/05 1330 AC 07/09 PO 0747 Atorvastatin Calcium 40 MG 1700 07/06 1715 AC 07/08 PO 1805 Azithromycin 500 MG DAILY 07/06 1000 AC 07/09 PO 0747 Benzonatate 100 MG TID 07/05 1000 AC 07/09 PO 0747 Cyclobenzaprine HCl 10 MG BID PRN 07/04 1445 AC PO Diltiazem HCl 120 MG DAILY 07/05 1000 AC 07/09 PO 0747 Enoxaparin Sodium 40 MG DAILY 07/04 1519 AC 07/09 SC 0747 Gabapentin 300 MG TID 07/04 1600 AC 07/09 PO 0747 Guaifenesin/Codeine 10 ML Q4P PRN 07/04 1500 AC 07/09 [place]ate PO 0904 Levothyroxine Sodium 0.112 MG DAILY AC 07/09 0700 AC 07/09 PO 0511 Melatonin 6 MG QPM 07/04 2200 AC 07/08 PO 2116 Meloxicam 7.5 MG DAILY 07/06 1000 AC 07/09 PO 0747 Mirabegron 25 MG DAILY 07/05 1000 AC 07/09 PO 0747 Omeprazole 20 MG DAILY AC 07/08 1030 AC 07/09 PO 0511 Ondansetron HCl 4 MG Q6P PRN 07/06 1845 AC 07/06 IV 1859 Oxybutynin Chloride 5 MG TID 07/04 1600 AC 07/09 PO 0747 Oxycodone/ 1 TAB Q6P PRN 07/04 1515 AC 07/09 Acetaminophen PO 0746 Prednisone 60 MG DAILY 07/08 1000 AC 07/09 PO 0747 Trazodone HCl 50 MG QPM 07/04 2200 AC 07/08 PO 2116 Vital Signs & I&O Last 24 Hrs of Vitals and I&O: Vital Signs Date Time Temp Pulse Resp B/P B/P Pulse O2 O2 Flow FiO2 Mean Ox Delivery Rate 07/09 0851 96 Room Air 07/09 0800 Room Air 07/09 0618 98.1 81 18 124/60 94 Room Air 07/09 0000 93 Room Air 07/08 2245 98.4 85 18 128/62 93 Room Air 07/08 2008 96 Room Air 07/08 1600 95 Room Air 07/08 1344 20 94 Room Air 07/08 1344 20 95 Room Air Intake & Output 07/09 1600 07/09 0800 07/09 0000 Intake Total 240 340 Output Total 600 Balance -360 340 Intake, Oral 240 340 Number 2 Bowel Movements Output, Urine 600 Impression/Plan Impression/Plan Impression/Plan: Physical Exam General Appearance: Alert, Oriented X3, Cooperative, No Acute Distress Cardiovascular: Regular Rate, Normal S1, Normal S2 Lungs: Clear to Auscultation, Normal Air Movement Abdomen: Normal Bowel Sounds, Soft, No Tenderness Extremities: No Edema 76-year-old with advanced COPD admitted with an exacerbation. There is underlying coronary artery disease though there is no evidence of congestive heart failure at this time, quick flu is negative. Respiratory status appears to be slowly improving as is oxygenation Recommendations: PO steoids OK to dc cont cough supp TO follow with Dr Baudilio [place] outpt
--- NOTE | 2016-07-09 14:14 | PN- Endocrinology ---
Assessment/Plan Assessment: TSH was less than 0.15. Her free T4 was 1.23. Her vitamin B-12 was 905. Patient has pituitary disease we have lost the ability to use the TSH is a sensitive indicator of the amount of thyroid hormone that she should be on. However since she was feeling anxious, levothyroxine was decreased to 112 g daily. Patient feels improved. She is currently on prednisone 60 mg daily. Plan: 1. continue Levothyroxine 112 mcg daily; 2. continue Prednisone as per pulmonary. However, she should restart her usual hydrocortisone replacement after prednisone is tapered down to less than 10 mg daily. 3. f/u in office with Dr. Duarte after discharge. Subjective Subjective: She feels better. Objective Last 24 Hrs of Vital Signs/I&O Vital Signs Date Time Temp Pulse Resp B/P B/P Pulse O2 O2 Flow FiO2 Mean Ox Delivery Rate 07/09 0851 96 Room Air 07/09 0800 Room Air 07/09 0618 98.1 81 18 124/60 94 Room Air 07/09 0000 93 Room Air 07/08 2245 98.4 85 18 128/62 93 Room Air 07/08 2009 96 Room Air 07/08 1600 95 Room Air Intake & Output 07/09 1600 07/09 0800 07/09 0000 Intake Total 240 340 Output Total 600 Balance -360 340 Intake, Oral 240 340 Number 2 Bowel Movements Output, Urine 600
--- NOTE | 2016-07-09 14:15 | NUR ---
NURSING NOTE: PATIENT A/OX3, PAIN MEDICATIONS GIVEN PRIOR TO DISCHARGE. PRESCIRPTIONS FOR PREDNISONE FILLED AND PICKED UP BY THIS RN FOR PATIENT. ALL OTHER PRESCRIPTIONS TO BE PICKED UP BY PATIENT ON MONDAY. ALL DISCAHRGE INFORMATION GIVEN TO PATIENT. PATIENT LEFT FLOOR VIA W/C WITH STAFF TO MEET DAUGHTER IN [place]
== END 2016-07-09 14:15 | DRG 190 ==
LOC: ERH 09:37 → 2NB 14:51 → ERHI 14:51 → ENRESERV 15:31 → 2NB 16:06 → ENPENDDIS 07-09 09:28 → 2NB 07-09 14:15
PROVIDERS: Internal Medicine; Physician Assistant Medical; ADMIT Internal Medicine
DX: J44.0 Chronic obstructive pulmonary disease with (acute) lower respiratory infection (principal); J96.01 Acute respiratory failure with hypoxia; E27.1 Primary adrenocortical insufficiency; I48.0 Paroxysmal atrial fibrillation; E23.0 Hypopituitarism; J20.9 Acute bronchitis, unspecified; J44.1 Chronic obstructive pulmonary disease with (acute) exacerbation; I25.10 Atherosclerotic heart disease of native coronary artery without angina pectoris; Z95.5 Presence of coronary angioplasty implant and graft; E03.9 Hypothyroidism, unspecified; Z87.891 Personal history of nicotine dependence; I10 Essential (primary) hypertension; E78.5 Hyperlipidemia, unspecified; F41.9 Anxiety disorder, unspecified
CPT/HCPCS: 2NBP; 36415; 87070; 87804; 87804-59; 93005; 93010; J0456; J1650; J2405; J2920; J7040; J7060

== ENCOUNTER 2016-07-14 18:04 | Emergency (ER) | payer OTHER ==
[~2016-07-14] VITALS: Ht 170.2 cm; Wt 90.7 kg
[~2016-07-14 18:04] MED LIST changes: +ASPIRIN EC81 M1 PO; +ATORVASTATIN CA40 M1 PO; +BREO ELLIPTA 21 EACH INH; +COMBIVENT RESPIM4 GM INH; +CORTEF20 M1 PO; +GUAIFENESIN AC473 M2 PO; +PREDNISONE20 M1 PO; +SYNTHROID112 MCG PO
--- NOTE | 2016-07-14 18:48 | ED GENERAL ADULT ---
History of Present Illness General Chief Complaint: Fall Stated Complaint: S/P FALL RIB PAIN Source: patient, old records Exam Limitations: no limitations Vital Signs & Intake/Output Vital Signs & Intake/Output Vital Signs Date Time Temp Pulse Resp B/P B/P Pulse O2 O2 Flow FiO2 Mean Ox Delivery Rate 07/14 1941 96.8 73 18 134/70 97 Room Air 07/14 1909 Room Air 07/14 1807 97.5 76 20 144/76 97 Room Air Allergies Coded Allergies: Penicillins (ANAPHYLAXIS 03/01/16) cyanocobalamin (vitamin B12) (CYANOCOBALAMIN) (HIVES 03/01/16) Reconcile Medications Albuterol Sulfate 2.5 MG/3 ML (0.083 %) VIAL.NEB 1 Vial INH/PATI Q4P PRN DYSPNEA (Reported) Aspirin (Ecotrin*) 81 MG TABLET.DR 81 MG PO DAILY heart health Atorvastatin Calcium 40 MG TABLET 40 MG PO 1700 heart health Cyclobenzaprine HCl 10 MG TABLET 1 TAB PO BID PRN PAIN Diltiazem HCl (Diltiazem 12HR ER) 120 MG CAP.ER.12H 1 CAP PO DAILY HEART RATE CONTROL (Reported) Fluticasone/Vilanterol (Breo Ellipta 200-25 Mcg INH) 200 MCG-25 MCG/DOSE BLST.W.DEV 1 INH INH DAILY COPD (Reported) Gabapentin (Neurontin) 300 MG CAPSULE 1 CAP PO TID pain Hydrocodone/Acetaminophen (Hydrocodon-Acetaminophen 5-300) 1 EACH TABLET 1 TAB PO Q8P PRN Low back pain Hydrocortisone 10 MG TABLET 1 TAB PO 1600 ADDISION (Reported) PLEASE STARTING TAKING ON 07/23/16 AT SUPPERTIME Hydrocortisone (Cortef) 20 MG TABLET 1 TAB PO 8AM ADDISION DISEASE (Reported) PLEASE START AFTER YOUR PREDNISONE TAPER ON 07/23/16 Ipratropium/Albuterol Sulfate (Combivent Respimat Inhal [place]) 20 MCG-100 MCG/ ACTUATION MIST.INHAL 1 PUFF INH PRN RESPIRATORY (Reported) Levothyroxine Sodium (Synthroid) 112 MCG TABLET 0.112 MG PO DAILY AC HYPOTHYROIDISM Meclizine HCl 25 MG TABLET 1 TAB PO AT BEDTIME PRN DIZZINESS (Reported) Melatonin 3 MG TABLET 2 TAB PO QPM INSOMNIA (Reported) Mirabegron (Myrbetriq) 25 MG TAB.ER.24H 1 TAB PO DAILY BLADDER (Reported) Pantoprazole Sodium 40 MG TABLET. 1 TAB PO DAILY GI (Reported) Prednisone 10 MG TABLET 10 MG PO SI COPD EXACERBATION On Take 07/09-07/11 60 MG 07/12-07/14 50 MG 07/15-07/17 40 MG 07/18-07/20 30 MG 07/21-07/23 20 MG then stop Trazodone HCl 50 MG TABLET 1 TAB PO QPM SLEEP (Reported) Triage Note: PT STATES SHE WENT TO PUSH HER CLOSET CLOSED AND IT DIDNT SHUT AND SHE STATES SHE FELT A SHARP PAIN IN HER RIBS. PT STATES SHE IS NOT SURE IF SHE CRACKED HER RIBS. Triage Nurses Notes Reviewed? yes Onset: Abrupt Duration: hour(s):, constant, continues in ED Timing: recent history Injury Environment: home Severity: moderate, severe No Modifying Factors: none HPI: 76-year-old female comes into emergency room with right-sided rib pain. Patient reports that she was closing her closet door at home and the door close into her right rib. Patient has been experiencing pain since then. Hurts with range of motion. Sharp. Continuous. Denies any other associated symptoms or trauma. Denies any fall to the ground. (KRISTI VLILA) Past History Travel History Traveled to [place] past 21 day No Medical History Any Pertinent Medical History? 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 Other Medical Hx: RDAHA'S DISEASE, BOBO'S SYNDROME History of MRSA: No History of VRE: No History of CDIFF: No Influenza Vaccine: 12/12/15 Tetanus Vaccine: 05/02/14 Surgical History Surgical History: knee replacement, BACK SX WRIST SX SHOULDER SX HYSTERECTOMY Psychosocial History Who do you live with Daughter Services at Home None What is your primary language Syriac Tobacco Use: Quit >30 days ago ETOH Use: denies use Illicit Drug Use: denies illicit drug use Family History Family History, If Any: SISTER FH: heart disease BROTHER FH: heart disease MOTHER FH: heart disease FATHER FH: heart disease FH: hypertension Hx Contributory? No (KRISTI VILLA) Review of Systems Review of Systems Constitutional: Reports: no symptoms. EENTM: Reports: no symptoms. Respiratory: Reports: no symptoms. Cardiovascular: Reports: no symptoms. GI: Reports: no symptoms. Genitourinary: Reports: no symptoms. Musculoskeletal: Reports: see HPI. Skin: Reports: no symptoms. Neurological/Psychological: Reports: no symptoms. Hematologic/Endocrine: Reports: no symptoms. Immunologic/Allergic: Reports: no symptoms. All Other Systems: Reviewed and Negative (KRISTI VILLA) Physical Exam Physical Exam General Appearance: well developed/nourished, alert, awake, mild distress Head: atraumatic, normal appearance Eyes: Bilateral: normal appearance. Ears, Nose, Throat: normal ENT inspection, hearing grossly normal Neck: normal inspection, full range of motion Respiratory: normal breath sounds, no respiratory distress, chest wall tednerness right mid axillary/anterior ribs Gastrointestinal: soft, non-tender Back: normal range of motion Extremities: normal range of motion Neurologic/Psych: awake, alert, oriented x 3, normal gait Skin: intact, normal color Core Measures ACS in differential dx? No CVA/TIA Diagnosis: No Severe Sepsis Present: No Septic Shock Present: No (KRISTI VILLA) Progress Differential Diagnoses I considered the following diagnoses in my evaluation of the patient: Rib contusion, muscle strain, pneumothorax, rib fracture, pulmonary contusion, lacerated spleen, Plan of Care: Orders Procedure Date/time Status XRY-RIBS UNILATERAL-RIGHT 07/14 1837 Active Diagnostic Imaging: Viewed by Me: Radiology Read. Discussed w/RAD: Radiology Read. Radiology Impression: SERVICE DATE: 07/14/16 EXAM TYPE: RAD - XRY-RIBS UNILATERAL-RIGHT EXAMINATION: XR RIBS, RIGHT CLINICAL INFORMATION: Right-sided rib pain. COMPARISON: Chest x-ray 07/04/2016. TECHNIQUE: Single AP view of the chest as well as 5 additional views of the right-sided ribs. FINDINGS: Symmetric pulmonary expansion. No consolidation, pneumothorax, or pleural effusion. The cardiomediastinal silhouette and pulmonary vasculature are normal. Old fractures involving the right lateral ninth and 10th ribs. No acute displaced right-sided rib fractures are identified. Incidental note is made of mechanical hardware related to bilateral shoulder arthroplasties. IMPRESSION: Remote fractures involving the right lateral ninth and 10th ribs. No acute displaced right-sided rib fractures. DICTATED BY: VALERIO WAY MD DATE/TIME DICTATED:07/14/161910 SALARY AND WAGE ADMINISTRATOR:ANA DATE/TIME TRANSCRIBED:07/14/161910 Initial ED EKG: none Comments: 07/14/2016 8:00:30 PM Old rib fractures. No acute fracture seen. Follow-up with primary care doctor. Pain reproducible worse with range of motion. Consistent with muscular pain. (KRISTI VILLA) Departure Departure Disposition: HOME OR SELF CARE Condition: Stable Clinical Impression Primary Impression: Contusion of rib on right side Referrals: JORGE CHICAS DO (PCP/Family) Additional Instructions: Take Tylenol at home for pain. Follow-up with your regular doctor. Return if any other concerns worsening symptoms. Please go over all results of today's visit with your primary care doctor. Contact your primary care doctor to let them know you were here in the emergency room. There may be nonspecific findings which may not be related to your visit today here in the emergency room but may require further evaluation and chronic monitoring by your primary care doctor. If you had a laceration today the chance of foreign body always remains. You should follow-up with your primary care doctor for recheck in 3-5 days for a wound check. If you had an x-ray done there is a chance that a fracture could have been missed on initial read and you should follow-up with your primary care doctor for repeat x-rays if symptoms persist. If your blood pressure was elevated here in the emergency room please have rechecked by her primary care doctor within the next 48 hours by your primary care doctor. If you were prescribed a narcotic here in the emergency room or any type of controlled substances you're not allowed to drive while taking this medication or operate any type of heavy machinery. Narcotics can make you feel lightheaded dizziness nausea and can cause constipation. You may need to picker and packer a stool softener. Thank you for choosing [facility] emergency room. Please return to the emergency room immediately if you have any other concerns worsening of symptoms. Departure Forms: Customer Survey General Discharge Information (KRISTI VILLA) PA/TAGMAN Co-Sign Statement Statement: ED Attending supervision documentation- x I saw and evaluated the patient. I have also reviewed all the pertinent lab results and diagnostic results. I agree with the findings and the plan of care as documented in the PA's/TAGMAN's documentation. [] I have reviewed the ED Record and agree with the PA's/TAGMAN's documentation. [] Additions or exceptions (if any) to the PAs/TAGMAN's note and plan are summarized below: [] (LYDIA ZAVALETA,JASON) Critical Care Note Critical Care Note Critical Care Time: non-applicable (KRISTI VILLA)
--- NOTE | 2016-07-14 19:19 | RADIOLOGY REPORT ---
EXAMINATION: XR RIBS, RIGHT CLINICAL INFORMATION: Right-sided rib pain. COMPARISON: Chest x-ray 07/04/2016. TECHNIQUE: Single AP view of the chest as well as 5 additional views of the right-sided ribs. FINDINGS: Symmetric pulmonary expansion. No consolidation, pneumothorax, or pleural effusion. The cardiomediastinal silhouette and pulmonary vasculature are normal. Old fractures involving the right lateral ninth and 10th ribs. No acute displaced right-sided rib fractures are identified. Incidental note is made of mechanical hardware related to bilateral shoulder arthroplasties. IMPRESSION: Remote fractures involving the right lateral ninth and 10th ribs. No acute displaced right-sided rib fractures.
[2016-07-14 19:42] VITALS: BP 134/70
== END 2016-07-14 19:43 ==
LOC: ERH 18:04
DX: S20.211A Contusion of right front wall of thorax, initial encounter (principal); X58.XXXA Exposure to other specified factors, initial encounter; Y92.009 Unspecified place in unspecified non-institutional (private) residence as the place of occurrence of the external cause; Y93.9 Activity, unspecified
CPT/HCPCS: 71100-RT

== ENCOUNTER 2016-07-21 12:02 | Emergency (ER) | payer OTHER ==
[~2016-07-21] VITALS: Ht 170.2 cm; Wt 90.7 kg
[2016-07-21 12:15] VITALS: BP 143/74
--- NOTE | 2016-07-21 15:47 | ED EAR COMPLAINT ---
History of Present Illness General Chief Complaint: Ear Complaints Stated Complaint: COTTON STUCK IN EAR X 1 WEEK Source: patient Exam Limitations: no limitations Vital Signs & Intake/Output Vital Signs & Intake/Output Vital Signs Date Time Temp Pulse Resp B/P B/P Pulse O2 O2 Flow FiO2 Mean Ox Delivery Rate 07/21 1215 97.0 92 15 143/74 96 Room Air Room Air Allergies Coded Allergies: Penicillins (ANAPHYLAXIS 07/21/16) cyanocobalamin (vitamin B12) (CYANOCOBALAMIN) (HIVES 07/21/16) Reconcile Medications Albuterol Sulfate 2.5 MG/3 ML (0.083 %) VIAL.NEB 1 Vial INH/PATI Q4P PRN DYSPNEA (Reported) Aspirin (Ecotrin*) 81 MG TABLET.DR 81 MG PO DAILY heart health Atorvastatin Calcium 40 MG TABLET 40 MG PO 1700 heart health Cyclobenzaprine HCl 10 MG TABLET 1 TAB PO BID PRN PAIN Diltiazem HCl (Diltiazem 12HR ER) 120 MG CAP.ER.12H 1 CAP PO DAILY HEART RATE CONTROL (Reported) Fluticasone/Vilanterol (Breo Ellipta 200-25 Mcg INH) 200 MCG-25 MCG/DOSE BLST.W.DEV 1 INH INH DAILY COPD (Reported) Gabapentin (Neurontin) 300 MG CAPSULE 1 CAP PO TID pain Hydrocodone/Acetaminophen (Hydrocodon-Acetaminophen 5-300) 1 EACH TABLET 1 TAB PO Q8P PRN Low back pain Hydrocortisone 10 MG TABLET 1 TAB PO 1600 ADDISION (Reported) PLEASE STARTING TAKING ON 07/23/16 AT SUPPERTIME Hydrocortisone (Cortef) 20 MG TABLET 1 TAB PO 8AM ADDISION DISEASE (Reported) PLEASE START AFTER YOUR PREDNISONE TAPER ON 07/23/16 Ipratropium/Albuterol Sulfate (Combivent Respimat Inhal [facility]) 20 MCG-100 MCG/ ACTUATION MIST.INHAL 1 PUFF INH PRN RESPIRATORY (Reported) Levothyroxine Sodium (Synthroid) 112 MCG TABLET 0.112 MG PO DAILY AC HYPOTHYROIDISM Meclizine HCl 25 MG TABLET 1 TAB PO AT BEDTIME PRN DIZZINESS (Reported) Melatonin 3 MG TABLET 2 TAB PO QPM INSOMNIA (Reported) Mirabegron (Myrbetriq) 25 MG TAB.ER.24H 1 TAB PO DAILY BLADDER (Reported) Pantoprazole Sodium 40 MG TABLET.DR 1 TAB PO DAILY GI (Reported) Prednisone 10 MG TABLET 10 MG PO SI COPD EXACERBATION On Take 07/09-07/11 60 MG 5-07/14 50 MG 07/15-07/17 40 MG 07/18-07/20 30 MG 07/21-07/23 20 MG then stop Trazodone HCl 50 MG TABLET 1 TAB PO QPM SLEEP (Reported) Triage Note: PT TO ED FOR C/C OF PIECE OF COTTON STUCK IN LEFT EAR FOR A WEEK. PT DENIES PAIN. Triage Nurses Notes Reviewed? yes Onset: Abrupt Duration: day(s):, constant, continues in ED Timing: recent history Injury Environment: home Severity: moderate, severe No Modifying Factors: none HPI: 76-year-old female comes into emergency room for further evaluation of, and that is stuck in her left ear for the last few days. Pain. Denies any other associated symptoms. Denies any trauma. Patient reports he got stuck in there by accident when cleaning years. Past History Travel History Traveled to [place] past 21 day No Medical History Any Pertinent Medical History? 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 Other Medical Hx: RADHA'S DISEASE, BOBO'S SYNDROME History of MRSA: No History of VRE: No History of CDIFF: No Tetanus Vaccine: 05/02/14 Surgical History Surgical History: knee replacement, BACK SX WRIST SX SHOULDER SX HYSTERECTOMY Psychosocial History Who do you live with Daughter Services at Home None What is your primary language Serbian Tobacco Use: Quit >30 days ago ETOH Use: denies use Illicit Drug Use: denies illicit drug use Family History Family History, If Any: SISTER FH: heart disease BROTHER FH: heart disease MOTHER FH: heart disease FATHER FH: heart disease FH: hypertension Hx Contributory? No Review of Systems Review of Systems Constitutional: Reports: no symptoms. EENTM: Reports: see HPI. Respiratory: Reports: no symptoms. Cardiovascular: Reports: no symptoms. GI: Reports: no symptoms. Genitourinary: Reports: no symptoms. Musculoskeletal: Reports: no symptoms. Skin: Reports: no symptoms. Neurological/Psychological: Reports: no symptoms. Hematologic/Endocrine: Reports: no symptoms. Immunologic/Allergic: Reports: no symptoms. All Other Systems: Reviewed and Negative Physical Exam Physical Exam General Appearance: well developed/nourished, mild distress Head: atraumatic Eyes: Bilateral: normal appearance. Ears: Left: foreign body. Nose: normal inspection Mouth/Throat: normal mouth inspection Neck: normal inspection Cardiovascular/Respiratory: no respiratory distress Back: normal inspection Neurologic/Psych: awake, alert, oriented x 3, normal mood/affect Skin: intact, normal color, warm/dry Progress Differential Diagnoses I considered the following diagnoses in my evaluation of the patient: Foreign body, TM perforation, otitis media, otitis externa, Plan of Care: 07/21/2016 6:49:30 PM Foreign body removed. No evidence of perforation or infection. Initial ED EKG: none Departure Departure Disposition: HOME OR SELF CARE Condition: Stable Clinical Impression Primary Impression: Foreign body in ear Referrals: JORGE CHICAS DO (PCP/Family) Additional Instructions: Please go over all results of today's visit with your primary care doctor. Contact your primary care doctor to let them know you were here in the emergency room. There may be nonspecific findings which may not be related to your visit today here in the emergency room but may require further evaluation and chronic monitoring by your primary care doctor. If you had a laceration today the chance of foreign body always remains. You should follow-up with your primary care doctor for recheck in 3-5 days for a wound check. If you had an x-ray done there is a chance that a fracture could have been missed on initial read and you should follow-up with your primary care doctor for repeat x-rays if symptoms persist. If your blood pressure was elevated here in the emergency room please have rechecked by her primary care doctor within the next 48 hours by your primary care doctor. If you were prescribed a narcotic here in the emergency room or any type of controlled substances you're not allowed to drive while taking this medication or operate any type of heavy machinery. Narcotics can make you feel lightheaded dizziness nausea and can cause constipation. You may need to supervisor opening and picking a stool softener. Thank you for choosing [facility] emergency room. Please return to the emergency room immediately if you have any other concerns worsening of symptoms. Departure Forms: Customer Survey General Discharge Information
== END 2016-07-21 15:59 ==
LOC: ERH 12:02
DX: T16.2XXA Foreign body in left ear, initial encounter (principal)

== ENCOUNTER 2016-08-09 10:55 | Emergency (ER) | payer OTHER ==
[~2016-08-09] VITALS: Ht 170.2 cm; Wt 90.7 kg
[2016-08-09 10:59] VITALS: BP 134/79
--- NOTE | 2016-08-09 11:37 | ED ANKLE/FOOT INJURY COMPLAINT ---
History of Present Illness General Chief Complaint: Plantar Puncture Wound Stated Complaint: SPLINTER IN LT HEEL Source: patient, old records Exam Limitations: no limitations Vital Signs & Intake/Output Vital Signs & Intake/Output Vital Signs Date Time Temp Pulse Resp B/P B/P Pulse O2 O2 Flow FiO2 Mean Ox Delivery Rate 08/09 1059 98.4 87 20 134/79 98 Room Air Allergies Coded Allergies: Penicillins (ANAPHYLAXIS 07/21/16) cyanocobalamin (vitamin B12) (CYANOCOBALAMIN) (HIVES 07/21/16) Reconcile Medications Albuterol Sulfate 2.5 MG/3 ML (0.083 %) VIAL.NEB 1 Vial INH/PATI Q4P PRN DYSPNEA (Reported) Aspirin (Ecotrin*) 81 MG TABLET.DR 81 MG PO DAILY heart health Atorvastatin Calcium 40 MG TABLET 40 MG PO 1700 heart [facility] Cyclobenzaprine HCl 10 MG TABLET 1 TAB PO BID PRN PAIN Diltiazem HCl (Diltiazem 12HR ER) 120 MG CAP.ER.12H 1 CAP PO DAILY HEART RATE CONTROL (Reported) Fluticasone/Vilanterol (Breo Ellipta 200-25 Mcg INH) 200 MCG-25 MCG/DOSE BLST.W.DEV 1 INH INH DAILY COPD (Reported) Gabapentin (Neurontin) 300 MG CAPSULE 1 CAP PO TID pain Hydrocodone/Acetaminophen (Hydrocodon-Acetaminophen 5-300) 1 EACH TABLET 1 TAB PO Q8P PRN Low back pain Hydrocortisone 10 MG TABLET 1 TAB PO 1600 ADDISION (Reported) PLEASE STARTING TAKING ON 07/23/16 AT SUPPERTIME Hydrocortisone (Cortef) 20 MG TABLET 1 TAB PO 8AM ADDISION DISEASE (Reported) PLEASE START AFTER YOUR PREDNISONE TAPER ON 07/23/16 Ipratropium/Albuterol Sulfate (Combivent Respimat Inhal [place]) 20 MCG-100 MCG/ ACTUATION MIST.INHAL 1 PUFF INH PRN RESPIRATORY (Reported) Levothyroxine Sodium (Synthroid) 112 MCG TABLET 0.112 MG PO DAILY AC HYPOTHYROIDISM Meclizine HCl 25 MG TABLET 1 TAB PO AT BEDTIME PRN DIZZINESS (Reported) Melatonin 3 MG TABLET 2 TAB PO QPM INSOMNIA (Reported) Mirabegron (Myrbetriq) 25 MG TAB.ER.24H 1 TAB PO DAILY BLADDER (Reported) Pantoprazole Sodium 40 MG TABLET.DR 1 TAB PO DAILY GI (Reported) Prednisone 10 MG TABLET 10 MG PO SI COPD EXACERBATION On Take 07/09-07/11 60 MG 5/-07/14 50 MG 07/15-07/17 40 MG 07/18-07/20 30 MG 07/21-07/23 20 MG then stop Trazodone HCl 50 MG TABLET 1 TAB PO QPM SLEEP (Reported) Triage Note: C/O WOOD SPLINTER TO BOTTOM OF LEFT HEEL X 3 DAYS. UNABLE TO REMOVE. Triage Nurses Notes Reviewed? yes Occurred: yesterday Duration: day(s): (1), constant, continues in ED Pain/Injury Location: Left: Foot. No Modifying Factors: none HPI: 76-year-old female comes into emergency room with complaints of sliver on the base of her left foot. Patient reports that she had hardwood portion her house and she was walking barefoot and got a small piece of wood stuck in there. This occurred yesterday. Sharp pain. Tetanus shot up-to-date. Denies any injury or trauma anywhere else. Denies any other symptoms of symptoms. (KRISTI VILLA) Past History Travel History Traveled to [place] past 21 day No Medical History Any Pertinent Medical History? 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 No (KRISTI VILLA) Review of Systems Review of Systems Constitutional: Reports: no symptoms. EENTM: Reports: no symptoms. Respiratory: Reports: no symptoms. Cardiovascular: Reports: no symptoms. GI: Reports: no symptoms. Genitourinary: Reports: no symptoms. Musculoskeletal: Reports: see HPI. Skin: Reports: see HPI. Neurological/Psychological: Reports: no symptoms. Hematologic/Endocrine: Reports: no symptoms. Immunologic/Allergic: Reports: no symptoms. All Other Systems: Reviewed and Negative (KRISTI VILLA) Physical Exam Physical Exam General Appearance: well developed/nourished, mild distress Head: atraumatic Eyes: Bilateral: normal appearance. Ears, Nose, Throat: normal ENT inspection, hearing grossly normal Neck: normal inspection Cardiovascular/Respiratory: no respiratory distress Back: normal inspection Leg/Knee/Thigh Left: normal inspection Ankle Left: normal inspection Foot Left: soft tissue tenderness, small foreign body base of left heel, superficial, no erythema, dorsalis pedis intact, cap refill intact, Neuro/Vascular: normal motor function, normal sensation Tendon: normal tendon function Psychiatric: awake, alert, oriented x 3 Skin: intact, normal color, warm/dry (KRISTI VILLA) Progress Differential Diagnosis: DVT, cellulitis, septic arthritis, gout, fracture, dislocation, sprain, contusion, soft tissue foreign body Plan of Care: 08/09/2016 12:58:13 PM Small amounts of lidocaine injected to site. Piece of wood removed successively. No foreign body pieces appreciated any further. No signs of infection. No need for antibiotics at this time. Follow-up with primary care doctor to have wound rechecked in a few days. Patient clinically looks well. She is nontoxic-appearing. She is in no apparent distress. (KRISTI VILLA) Departure Departure Disposition: HOME OR SELF CARE Condition: Stable Clinical Impression Primary Impression: Foreign body (FB) in soft tissue Referrals: JORGE CHICAS DO (PCP/Family) Additional Instructions: Warm soaks. Use bacitracin. Watch for signs of infection such as redness swelling discharge fever chills. Return if any other concerns worsening symptoms. Please go over all results of today's visit with your primary care doctor. Contact your primary care doctor to let them know you were here in the emergency room. There may be nonspecific findings which may not be related to your visit today here in the emergency room but may require further evaluation and chronic monitoring by your primary care doctor. If you had a laceration today the chance of foreign body always remains. You should follow-up with your primary care doctor for recheck in 3-5 days for a wound check. If you had an x-ray done there is a chance that a fracture could have been missed on initial read and you should follow-up with your primary care doctor for repeat x-rays if symptoms persist. If your blood pressure was elevated here in the emergency room please have rechecked by her primary care doctor within the next 48 hours by your primary care doctor. If you were prescribed a narcotic here in the emergency room or any type of controlled substances you're not allowed to drive while taking this medication or operate any type of heavy machinery. Narcotics can make you feel lightheaded dizziness nausea and can cause constipation. You may need to poultry picker a stool softener. Thank you for choosing [facility] emergency room. Please return to the emergency room immediately if you have any other concerns worsening of symptoms. Departure Forms: Customer Survey General Discharge Information (KRISTI VILLA) PA/PACKING MACHINE OPERATOR Co-Sign Statement Statement: ED Attending supervision documentation- [X] I saw and evaluated the patient. I have also reviewed all the pertinent lab results and diagnostic results. I agree with the findings and the plan of care as documented in the PA's/PACKING MACHINE OPERATOR's documentation. [X] I have reviewed the ED Record and agree with the PA's/PACKING MACHINE OPERATOR's documentation. [] Additions or exceptions (if any) to the PAs/PACKING MACHINE OPERATOR's note and plan are summarized below: [] (FRANKLIN ZAVALETA,FRITZ)
== END 2016-08-09 11:41 ==
LOC: ERH 10:55
DX: S90.852A Superficial foreign body, left foot, initial encounter (principal); W45.8XXA Other foreign body or object entering through skin, initial encounter; Y92.009 Unspecified place in unspecified non-institutional (private) residence as the place of occurrence of the external cause; Y93.9 Activity, unspecified

== ENCOUNTER 2017-05-10 09:35 | Observation (INO) | payer OTHER ==
[~2017-05-10] VITALS: Ht 167.6 cm; Wt 86.2 kg
[~2017-05-10 09:35] MED LIST changes: +AZITHROMYCIN500 M3 PO; +DEXTROSE 5% IV; +DILTIAZEM 24HR120 MG PO; +DOCUSATE SODIU100 M3 PO; +DOXYCYCLINE HY100 M4 PO; +ESCITALOPRAM OXA5 MG PO; +FERROUS SULFAT325 M3 PO; +MIRALAX119 GM PO; +NORCO 5-325 TA1 EACH PO; +OXYBUTYNIN CHLO15 M1 PO; +SENNA-TIME S T1 EACH PO
[2017-05-10] MEDS ORDERED: HYDROCORTISONE10 M2 PO ×2 (11:45→11:46)
[2017-05-10 11:50] LABS: ABSOLUTE BASOPHIL COUNT 0 /CUMM (0.0-0.2); ABSOLUTE EOSINOPHIL COUNT 0 /CUMM (0.0-0.7); ABSOLUTE GRANULOCYTE CT 3.1 /CUMM (1.4-6.5); ABSOLUTE LYMPH COUNT 0.8 /CUMM (1.2-3.4); ABSOLUTE MONOCYTE COUNT 0.4 /CUMM (0.10-0.60); BASOPHIL % 0.2 % (0.0-2.0); EOSINOPHIL % 0.7 % (0-5); GRANULOCYTE % 70.4 % (42.2-75.2); HEMATOCRIT 40.2 % (37-47); MEAN CORPUSCULAR HGB 24.8 PG (27.0-31.0); MEAN CORPUSCULAR HGB CONC 32.7 G/DL (33.0-37.0); MEAN CORPUSCULAR VOLUME 75.7 FL (81.0-99.0); MEAN PLATELET VOLUME 9.5 FL (7.4-10.4); PLATELET COUNT 180 /CUMM (130-400); RBC DISTRIBUTION WIDTH 14.1 % (11.5-14.5); RED BLOOD CELL CT 5.31 /CUMM (4.20-5.40); WHITE BLOOD CELL COUNT 4.4 /CUMM (4.8-10.8)
--- NOTE | 2017-05-10 12:46 | CT SCAN REPORT ---
EXAMINATION: CT ABDOMEN AND PELVIS WITHOUT CONTRAST CLINICAL INFORMATION: Diffuse abdominal pain. Nausea, vomiting, diarrhea. COMPARISON: 01/06/2017 TECHNIQUE: Multidetector volumetric imaging was performed from the superior aspect of the liver through the pubic symphysis. Sagittal and coronal reformatted images were obtained on the technologist's workstation. DLP: 391 mGy-cm FINDINGS: LUNG BASES: The visualized lung bases are unremarkable. There is a moderate-sized hiatal hernia redemonstrated. LIVER, GALLBLADDER, AND BILIARY TREE: The liver is normal in size, shape, and attenuation. No focal hepatic lesion or biliary ductal dilatation is present. The gallbladder is unremarkable with no evidence of radiopaque gallstones, gallbladder wall thickening, or obvious pericholecystic inflammatory changes. PANCREAS: Unremarkable. SPLEEN: Unremarkable. ADRENAL GLANDS: Unremarkable. KIDNEYS AND URETERS: The kidneys are normal in size, shape, and attenuation. No hydronephrosis, hydroureter, or calculi seen. No perinephric stranding. BLADDER: Under distended. Unremarkable. GASTROINTESTINAL TRACT: There are few colonic diverticuli without evidence of diverticulitis. There is moderate stool scattered within the colon. Loops of small bowel are normal in caliber. An appendix is not definitely visualized. No inflammatory change in the right lower quadrant. ABDOMINAL WALL: There are coarse calcifications in the both flanks, stable, compatible with injection granulomas. LYMPH NODES: No adenopathy. VASCULAR: The aorta is normal in caliber. PELVIC VISCERA: There has been prior hysterectomy. No adnexal masses. OSSEOUS STRUCTURES: There is multilevel degenerative change of the spine. There has been posterior decompression and noninstrumented fusion from L4 through S1, unchanged. No acute osseous abnormalities are visualized. IMPRESSION: No acute intra-abdominal or intrapelvic pathology is visualized. Scattered colonic diverticula without evidence of diverticulitis. Moderate hiatal hernia.
--- NOTE | 2017-05-10 12:49 | ED GI/GU/ABDOMINAL COMPLAINT ---
History of Present Illness General Chief Complaint: Nausea, Vomiting, Diarrhea Stated Complaint: NVD Source: patient, family, old records Exam Limitations: no limitations Vital Signs & Intake/Output Vital Signs & Intake/Output Vital Signs Date Time Temp Pulse Resp B/P B/P Pulse O2 O2 Flow FiO2 Mean Ox Delivery Rate 05/11 0639 98.2 84 20 130/60 96 Room Air 05/10 2222 97.6 84 18 138/70 94 Room Air 05/10 2145 Room Air 05/10 2054 98.4 96 16 167/86 95 Room Air 05/10 1538 98.9 88 18 124/66 95 Room Air 05/10 1258 99.2 95 18 122/60 95 Room Air 05/10 1119 99 Room Air 05/10 0946 97.9 98 18 96/63 97 Room Air Room Air ED Intake and Output 05/11 0000 05/10 1200 Intake Total 0 Output Total Balance 0 Intake, Oral 0 Patient 190 lb 190 lb Weight Weight Reported by Patient Measurement Method Allergies Coded Allergies: Penicillins (ANAPHYLAXIS 07/21/16) cyanocobalamin (vitamin B12) (CYANOCOBALAMIN) (HIVES 07/21/16) Reconcile Medications Albuterol Sulfate 2.5 MG/3 ML (0.083 %) VIAL.NEB 1 Vial INH/PATI Q4P PRN DYSPNEA (Reported) Diltiazem HCl (Diltiazem 24HR ER) 120 MG CAP.ER.24H 1 CAP PO DAILY HR CONTROL (Reported) Docusate Sodium 100 MG CAPSULE 1 CAP PO DAILY PRN CONSTIPATION Escitalopram Oxalate 5 MG TABLET 1 TAB PO DAILY MENTAL HEALTH (Reported) Ferrous Sulfate 325 MG (65 MG IRON) TABLET 1 TAB PO DAILY Iron Deficiency Fluticasone/Vilanterol (Breo Ellipta 200-25 Mcg INH) 200 MCG-25 MCG/DOSE BLST.W.DEV 1 INH INH DAILY COPD (Reported) Gabapentin (Neurontin) 300 MG CAPSULE 1 CAP PO TID nerve pain (Reported) Hydrocodone/Acetaminophen ([place] 5-325 Tablet) 5 MG-325 MG TABLET 1 TAB PO Q4- 6 PRN PRN pain Hydrocortisone 10 MG TABLET 2 TAB PO DAILY UNKNOWN (Reported) Hydrocortisone 10 MG TABLET 1 TAB PO QPM UNKNOWN (Reported) Ipratropium/Albuterol Sulfate (Combivent Respimat Inhal [place]) 20 MCG-100 MCG/ ACTUATION MIST.INHAL 1 PUFF INH BID COPD (Reported) Levothyroxine Sodium (Synthroid) 112 MCG TABLET 0.112 MG PO DAILY AC HYPOTHYROIDISM Melatonin 3 MG TABLET 2 TAB PO QPM INSOMNIA (Reported) Mirabegron (Myrbetriq) 25 MG TAB.ER.24H 1 TAB PO DAILY BLADDER (Reported) Omeprazole 20 MG CAPSULE.DR 40 MG PO BID Upper GI Ulcer From 10/26-11/04 - take this twice per day. From 11/05, take daily. Oxybutynin Chloride (Oxybutynin Chloride ER) 15 MG TAB.ER.24 1 TAB PO DAILY BLADDER (Reported) Polyethylene Glycol 3350 (Miralax) 17 GRAM/DOSE POWDER 1 PAC PO DAILY PRN CONSTIPATION Sennosides/Docusate Sodium (Senna-Time S Tablet) 8.6 MG-50 MG TABLET 1 TAB PO AT BEDTIME CONSTIPATION Trazodone HCl 50 MG TABLET 1 TAB PO QPM SLEEP (Reported) Triage Note: PT TO ED WITH C/O DIARRHEA SINCE MONDAY, N/V SINCE YESTERDAY, PT C/O "FEEL VERY WEAK" "I HAVE ADDISONS DISEASE". Triage Nurses Notes Reviewed? yes LMP (ages 10-50): post menopausal ? N Is pt currently ? No Onset: Abrupt Duration: day(s): (3), constant, continues in ED, getting worse Timing: single episode today Quality/Severity: cramping Severity Numbers: 9 Location: generalized abdomen Radiation: no radiation Activities at Onset: none Prior Abdominal Problems: none Past Sexual History: Unobtainable at this time No Modifying Factors: none Associated Symptoms: abdominal pain, diarrhea, nausea/vomiting HPI: 76 year old female past medical history of coronary artery disease, hypertension , COPD presents for evaluation of nausea vomiting diarrhea and abdominal pain. Patient states symptoms started about 3 days ago and getting worse. She states pain is located diffusely in the abdomen and does not radiate. She describes as cramping and rates as a 9 out of 10. She states she's never had anything like this before. She states she's not been able to eat or drink anything due to the nausea and multiple doses of vomiting. She states that this stool has been watery but did notice some bright red blood yesterday. No melena. No sick contacts recently travel recent antibiotics or recent hospitalizations. She is not taking any medicine for her symptoms. She reports associated dizziness and lightheadedness. No chest pain shortness of breath back pain urinary symptoms. No lower extremity edema. She reports associated weakness and subjective signs of fever. (Marlon Willis) Past History Travel History Traveled to [place] past 21 day No Medical History Any Pertinent Medical History? 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 Other Medical Hx: RADHA'S DISEASE, BOBO'S SYNDROME History of MRSA: No History of VRE: No History of CDIFF: No Influenza Vaccine: 12/25/16 Tetanus Vaccine: 05/02/14 Surgical History Surgical History: knee replacement, BACK SX WRIST SX SHOULDER SX HYSTERECTOMY Psychosocial History Who do you live with Daughter Services at Home None What is your primary language Syriac Tobacco Use: Never used ETOH Use: denies use Illicit Drug Use: denies illicit drug use Family History Family History, If Any: SISTER FH: heart disease BROTHER FH: heart disease MOTHER FH: heart disease FATHER FH: heart disease FH: hypertension Hx Contributory? No (Marlon Willis) Review of Systems Review of Systems Constitutional: Reports: chills, weakness. EENTM: Reports: no symptoms. Respiratory: Reports: no symptoms. Cardiovascular: Reports: no symptoms. GI: Reports: see HPI, abdominal pain, diarrhea, nausea, vomiting. Genitourinary: Reports: no symptoms. Musculoskeletal: Reports: no symptoms. Skin: Reports: no symptoms. Neurological/Psychological: Reports: no symptoms. Hematologic/Endocrine: Reports: no symptoms. Immunologic/Allergic: Reports: no symptoms. All Other Systems: Reviewed and Negative (Marlon Willis) Physical Exam Physical Exam General Appearance: well developed/nourished, alert, awake, anxious, moderate distress Head: atraumatic, normal appearance Eyes: Bilateral: normal appearance, PERRL, EOMI, normal inspection. Ears, Nose, Throat, Mouth: hearing grossly normal, DRY MUCOUS MEMBRANES Neck: normal inspection, supple, full range of motion Respiratory: chest non-tender, no respiratory distress, decreased breath sounds, wheezing (MILD) Cardiovascular: regular rate/rhythm, normal peripheral pulses Peripheral Pulses: 2+ radial (R), 2+ radial (L) Gastrointestinal: normal bowel sounds, soft, no organomegaly, tenderness ( DIFFUSE) Rectal: normal inspection, normal rectal tone, heme negative stool Back: normal inspection, normal range of motion, no vertebral tenderness Extremities: normal range of motion Neurologic/Psych: no motor/sensory deficits, awake, alert, oriented x 3, normal gait Skin: intact, warm/dry, pallor Core Measures ACS in differential dx? No Sepsis Present: No Sepsis Focused Exam Completed? No (Christian CAMPBELL,Marlon) Progress Differential Diagnosis: appendicitis, biliary colic, bowel obstruction, cholecystitis, diverticulitis, gastritis, inflamm bowel dis, pancreatitis, PUD/ GERD, perforated viscous, SBO, UTI/pyelo, VIRAL GASTROENTERITIS, BACTERIAL GASTROENTERITIS, c. DIFFICILE Plan of Care: Orders Procedure Date/time Status BASIC ELECTROLYTES PLUS BUN&CR 05/12 0600 Active Full Liquid Diet 05/11 B Active Skin Integrity Protocol 05/11 0748 Active Turn and Reposition 05/11 0747 Active BASIC ELECTROLYTES PLUS BUN&CR 05/11 0600 Complete Skin/Pressure Ulcer Assess (Sk 05/10 2150 Active Vital Signs 05/10 2133 Active Teach/Educate 05/10 2133 Active Pain Treatment and Response 05/10 2133 Active Nutritional Intake, Monitor 05/10 2133 Active Isolation 05/10 2133 Active Intake & Output 05/10 2133 Active Patient Care Conference 05/10 2133 Active Activity/Ambulation 05/10 2133 Active Pathway - chart 05/10 1913 Active Pathway - chart 05/10 191 Active House Staff 05/10 191 Active Code Status 05/10 191 Active Patient Data 05/[address] in observation 05/10 1602 Active ED Holding Orders 05/10 1602 Active Vital Signs 05/10 1602 Active Code Status 05/10 1602 Complete URINALYSIS 05/10 1126 Complete TROPONIN LEVEL 05/10 1126 Complete LIPASE 05/10 1126 Complete LACTIC ACID 05/10 1126 Complete C-REACTIVE PROTEIN 05/10 1126 Complete COMPREHENSIVE METABOLIC PANEL 05/10 1126 Complete CBC WITHOUT DIFFERENTIAL 05/10 1126 Complete EKG 05/10 1126 Active Intake & Output 05/10 1118 Active VTE Mechanical Prophylaxis 05/10 UNK Active Precautions 05/10 UNK Active EKG 05/10 UNK Active Current Medications Sig/Veronique Start time Last Medication Dose Stop Time Status Admin Hydrocortisone 20 MG 1000 05/11 1000 AC Sodium Succinate (Solucortef) Levothyroxine Sodium 56 MCG 1000 05/11 1000 AC (Synthroid) Oxycodone HCl 15 MG DAILY 05/11 1000 AC 05/11 (OxyCONTIN) 0902 Hydrocortisone 50 MG ONE ONE 05/11 929 UNVr Sodium Succinate 05/11 930 (Solucortef) Hydrocortisone 10 MG 05/10 AC 05/11 Sodium Succinate 0154 (Solucortef) Trazodone HCl 50 MG QPM 05/10 2199 AC 05/11 (Desyrel) 015 Acetaminophen 1,000 MG Q6P PRN 05/10 1914 AC (Ofirmev) Dextrose/Sodium 1,000 ML Q20H 05/10 1914 AC 05/10 Chloride 2217 (D5-Normal Saline) Morphine Sulfate 1 MG Q4P PRN 05/10 1914 AC 05/11 (Morphine) 0204 Ondansetron HCl 4 MG Q6P PRN 05/10 1914 AC (Zofran) Enoxaparin Sodium 40 MG DAILY 05/10 1911 AC 05/11 (Lovenox) 0154 Albuterol Sulfate 3 ML Q4P PRN 05/10 1899 AC (Proventil) Laboratory Tests 05/11/17 0715: Anion Gap 11, Estimated GFR > 60, BUN/Creatinine Ratio 20.0 05/10/17 1715: Urine Color YEL, Urine Clarity CLEAR, Urine pH 6.0, Ur Specific [place] 1.010, Urine Protein NEG, Urine Ketones NEG, Urine Nitrite NEG, Urine Bilirubin NEG, Urine Urobilinogen 0.2, Ur Leukocyte Esterase SMALL H, Ur Microscopic SEDIMENT EXAMINED, Urine RBC RARE, Urine WBC RARE, Ur Epithelial Cells FEW, Urine Bacteria FEW H, Urine Mucus RARE, Urine Hemoglobin NEG, Urine Glucose NEG 05/10/17 1426: Lactic Acid Cancelled 05/10/17 1220: Anion Gap 7, Estimated GFR > 60, BUN/Creatinine Ratio 25.0, Glucose 75, Lactic Acid 1.2, Calcium 8.2 L, Total Bilirubin 0.6, AST 20, ALT 36, Alkaline Phosphatase 107, Troponin I < 0.01, C-Reactive Prot, Quant 5.3 H, Total Protein 5.3 L, Albumin 2.9 L, Globulin 2.4, Albumin/Globulin Ratio 1.2, Lipase 89 05/10/17 1140: CBC w Diff NO MAN DIFF REQ, RBC 5.31, MCV 75.7 L, MCH 24.8 L, MCHC 32.7 L, RDW 14.1, MPV 9.5, Gran % 70.4, Lymphocytes % 18.6 L, Monocytes % 10.1 H, Eosinophils % 0.7, Basophils % 0.2, Absolute Granulocytes 3.1, Absolute Lymphocytes 0.8 L, Absolute Monocytes 0.4, Absolute Eosinophils 0, Absolute Basophils 0 Patient seen and evaluated. She has diffuse abdominal tenderness to palpation and is hypotensive upon initial evaluation to 90s over 50s. She appears pale and is in moderate distress. Rectal exam is negative for melena or heme positive stool. Patient will be given a liter of normal saline IV Zofran and IV Tylenol. We'll check basic labs and CT scan. Blood work is within normal limits other than a mildly elevated CRP. CT scan does not show any acute findings. Negative lactic acid. Patient's blood pressure as a spotted nicely to fluids however she still reporting significant nausea. There's been no vomiting here. Patient is refusing to tolerate fluids due to nausea. She was medicated with Reglan and 10 mg IV. He is to not tolerate fluids despite multiple doses of IV antibiotics. She was given another liter normal saline still has not urinated. Her blood pressure has stabilized. Patient will be admitted for intractable nausea vomiting diarrhea and abdominal pain. She'll require IV fluids, IV antiemetics, serial labs, serial abdominal exams and gastroenterology consult. Case discussed with Dr. Urbina she agrees Diagnostic Imaging: Viewed by Me: CT Scan. Discussed w/RAD: CT Scan. Radiology Impression: PATIENT: JON CRISTINA PRESENT AGE: 76 PATIENT ACCOUNT NO: [id number] : 40 LOCATION: [facility] ORDERING PHYSICIAN: Marlon CAMPBELL SERVICE DATE: 05/10/17 EXAM TYPE: CAT - CT ABD & PELVIS W/O IV CONTRAS EXAMINATION: CT ABDOMEN AND PELVIS WITHOUT CONTRAST CLINICAL INFORMATION: Diffuse abdominal pain. Nausea, vomiting, diarrhea. COMPARISON: 01/06/2017 TECHNIQUE: Multidetector volumetric imaging was performed from the superior aspect of the liver through the pubic symphysis. Sagittal and coronal reformatted images were obtained on the technologist's workstation. DLP: 391 mGy-cm FINDINGS: LUNG BASES: The visualized lung bases are unremarkable. There is a moderate-sized hiatal hernia redemonstrated. LIVER, GALLBLADDER, AND BILIARY TREE: The liver is normal in size, shape, and attenuation. No focal hepatic lesion or biliary ductal dilatation is present. The gallbladder is unremarkable with no evidence of radiopaque gallstones, gallbladder wall thickening, or obvious pericholecystic inflammatory changes. PANCREAS: Unremarkable. SPLEEN: Unremarkable. ADRENAL GLANDS: Unremarkable. KIDNEYS AND URETERS: The kidneys are normal in size, shape, and attenuation. No hydronephrosis, hydroureter, or calculi seen. No perinephric stranding. BLADDER: Under distended. Unremarkable. GASTROINTESTINAL TRACT: There are few colonic diverticuli without evidence of diverticulitis. There is moderate stool scattered within the colon. Loops of small bowel are normal in caliber. An appendix is not definitely visualized. No inflammatory change in the right lower quadrant. ABDOMINAL WALL: There are coarse calcifications in the both flanks, stable, compatible with injection granulomas. LYMPH NODES: No adenopathy. VASCULAR: The aorta is normal in caliber. PELVIC VISCERA: There has been prior hysterectomy. No adnexal masses. OSSEOUS STRUCTURES: There is multilevel degenerative change of the spine. There has been posterior decompression and noninstrumented fusion from L4 through S1, unchanged. No acute osseous abnormalities are visualized. IMPRESSION: No acute intra-abdominal or intrapelvic pathology is visualized. Scattered colonic diverticula without evidence of diverticulitis. Moderate hiatal hernia. DICTATED BY: Juan M Cifuentes MD DATE/TIME DICTATED:05/10/171231 [employer] CONSULTANT:ANA DATE/TIME TRANSCRIBED:05/10/171231 CONFIDENTIAL, DO NOT COPY WITHOUT APPROPRIATE AUTHORIZATION. <Electronically signed in Other Vendor System> SIGNED BY: Juan M Cifuentes MD 05/10/17 1246 Initial ED EKG: normal sinus rhythm, NONSPECIFIC t-WAVE ABNORMALITIES ANTERIOR/ LATERAL LEADS Prior EKG: unchanged (Black PA,Marlon) Departure Departure Disposition: STILL A PATIENT Condition: Stable Clinical Impression Primary Impression: Intractable nausea and vomiting Qualifiers: Vomiting type: unspecified Qualified Code: R11.2 - Nausea with vomiting, unspecified Referrals: Aleida Banks DO (PCP/Family) Departure Forms: Customer Survey General Discharge Information Observation Note Spoke With: Kanika ZAVALETA,Valeria Physician Advisor Notified: TATIANA ZAVALETA,LIGIA Corey Place Patient In: Non-ED OBS Care Area Rationale for Observation: My rational for observation is as follows [IV fluids, IV antiemetics, serial labs, serial abdominal exams, monitoring of vital signs, gastroenterology consult]. (Marlon Willis) PA/DAIRY TESTER Co-Sign Statement Statement: ED Attending supervision documentation- [X] I saw and evaluated the patient. I have also reviewed all the pertinent lab results and diagnostic results. I agree with the findings and the plan of care as documented in the PA's/DAIRY TESTER's documentation. [X] I have reviewed the ED Record and agree with the PA's/DAIRY TESTER's documentation. [] Additions or exceptions (if any) to the PAs/DAIRY TESTER's note and plan are summarized below: [] STILL NOT FEELING WELL AFTER IV HYDRATION. NOT TOLERATING PO. IMPROVED BP. WILL PLACE IN 23 HR OBSERVATION. PATIENT RELIES ON EXOGENOUS STEROIDS SECONDARY TO RADHA DISEASE, WOULD BE MEDICALLY HARMFUL TO DISCHARGE PRIOR TO BEING ABLE TO TOLERATE PO (Carlitos ZAVALETA,Naina)
--- NOTE | 2017-05-10 16:57 | History & Physical ---
Noreen ZAVALETA,Marlon 05/10/17 1656: General Information and HPI Allergies/Medications Allergies: Coded Allergies: Penicillins (ANAPHYLAXIS 07/21/16) cyanocobalamin (vitamin B12) (CYANOCOBALAMIN) (HIVES 07/21/16) Home Med list Albuterol Sulfate 2.5 MG/3 ML (0.083 %) VIAL.NEB 1 Vial INH/PATI Q4P PRN DYSPNEA (Reported) Diltiazem HCl (Diltiazem 24HR ER) 120 MG CAP.ER.24H 1 CAP PO DAILY HR CONTROL (Reported) Docusate Sodium 100 MG CAPSULE 1 CAP PO DAILY PRN CONSTIPATION Escitalopram Oxalate 5 MG TABLET 1 TAB PO DAILY MENTAL HEALTH (Reported) Ferrous Sulfate 325 MG (65 MG IRON) TABLET 1 TAB PO DAILY Iron Deficiency Fluticasone/Vilanterol (Breo Ellipta 200-25 Mcg INH) 200 MCG-25 MCG/DOSE BLST.W.DEV 1 INH INH DAILY COPD (Reported) Gabapentin (Neurontin) 300 MG CAPSULE 1 CAP PO TID nerve pain (Reported) Hydrocodone/Acetaminophen ([place] 5-325 Tablet) 5 MG-325 MG TABLET 1 TAB PO Q4- 6 PRN PRN pain Hydrocortisone 10 MG TABLET 2 TAB PO DAILY UNKNOWN (Reported) Hydrocortisone 10 MG TABLET 1 TAB PO QPM UNKNOWN (Reported) Ipratropium/Albuterol Sulfate (Combivent Respimat Inhal [place]) 20 MCG-100 MCG/ ACTUATION MIST.INHAL 1 PUFF INH BID COPD (Reported) Levothyroxine Sodium (Synthroid) 112 MCG TABLET 0.112 MG PO DAILY AC HYPOTHYROIDISM Melatonin 3 MG TABLET 2 TAB PO QPM INSOMNIA (Reported) Mirabegron (Myrbetriq) 25 MG TAB.ER.24H 1 TAB PO DAILY BLADDER (Reported) Omeprazole 20 MG CAPSULE.DR 40 MG PO BID Upper GI Ulcer From 10/26-11/04 - take this twice per day. From 11/05, take daily. Oxybutynin Chloride (Oxybutynin Chloride ER) 15 MG TAB.ER.24 1 TAB PO DAILY BLADDER (Reported) Polyethylene Glycol 3350 (Miralax) 17 GRAM/DOSE POWDER 1 PAC PO DAILY PRN CONSTIPATION Sennosides/Docusate Sodium (Senna-Time S Tablet) 8.6 MG-50 MG TABLET 1 TAB PO AT BEDTIME CONSTIPATION Trazodone HCl 50 MG TABLET 1 TAB PO QPM SLEEP (Reported) Past History Travel History Traveled to [place] past 21 day No Medical History Neurological: NONE EENT: NONE Cardiovascular: CAD, TACHYCARDIA Respiratory: COPD, emphysema, last COPD exacer in 06/2016 Gastrointestinal: DIARRHEA Hepatic: NONE Renal: NONE Musculoskeletal: chronic back pain, disk herniation, 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 Psychiatric: anxiety Endocrine: adrenal insufficiency, hypopituitarism, hypothyroidism Blood Disorders: anemia Cancer(s): NONE 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 self Services at Home: None ETOH Use: denies use Illicit Drug Use: denies illicit drug use Functional Ability ADLs Independent: dressing, eating, toileting, bathing. Ambulation: cane Sexual History Past Sexual History Unobtainable at this time Core Measures/Misc (11/27) Sepsis (View protocol) Sepsis Present: No Kanika ZAVALETA,Valeria 05/10/17 1702: Attending MD Review Statement Attending Statement Attending MD Statement: examined this patient, discuss w/resident/PA/OPENER VERIFIER PACKER CUSTOMS, agreed w/resident/PA/OPENER VERIFIER PACKER CUSTOMS Attending Assessment/Plan: Patient seen and examined. Plan of care discussed with the medical team and the patient. Available lab work and radiology test reports were reviewed. Ms. Cote is a 76 yo F with PMH of CAD, COPD (last exacerbation in 06/2016), Adrenal insufficiency/Hypopituitarism/Bobo's syndrome, Chronic back pain, Recent GI bleed (admitted to [place] 10/2016) presents with history of for nausea vomiting diarrhea for last 3 days. Patient has not been able to keep anything down. She denies any recent exposure to illness however she has been suffering from cold like symptoms. Patient denies any recent medication changes. On exam her vital signs are stable. MAXIMUM TEMPERATURE 99.2. Labs were reviewed. CT abdomen and pelvis-No acute intra-abdominal or intrapelvic pathology is visualized. Scattered colonic diverticula without evidence of diverticulitis. Moderate hiatal hernia. Exam: General: Patient awake alert oriented without any distress; appears lethargic CVS: S1 plus S2 without any murmur or gallops Chest: Few scattered crepitation without any wheeze. There is no respiratory distress. 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1, MPV 9.5, Gran % 70.4, Lymphocytes % 18.6 L, Monocytes % 10.1 H, Eosinophils % 0.7, Basophils % 0.2, Absolute Granulocytes 3.1, Absolute Lymphocytes 0.8 L, Absolute Monocytes 0.4, Absolute Eosinophils 0, Absolute Basophils 0 Assessment * Acute gastritis likely viral * history of coronary artery disease, * hypertension, * COPD * Hypertension improved with IV fluids Plan * Hold stool softeners * IV fluids to finish her third liter * Okay to feed patient * Hold Cardizem for now; can resume once blood pressure stabilizes * if Pressure does not respond to fluid patient may need stress dose of hydrocortisone
--- NOTE | 2017-05-10 17:36 | History & Physical ---
Jadon Wesley 05/10/17 1736: General Information and HPI MD Statement: I have seen and personally examined JON CRISTINA and documented this H&P. The patient is a 76 year old F who presented with a patient stated chief complaint of [interactible nausea and vomiting and diarrhea]. Source of Information: patient, family Exam Limitations: no limitations History of Present Illness: This is a 76-year-old woman with past medical history of CAD, COPD not on home oxygen, current tobacco use, chronic back pain, adrenal insufficiency, Laura syndrome, hypopituitary, and hypothyroidism seen for evaluation of fever, cough, weakness and shortness of breath. Patient reports that over the past 3 days she developed nausea and vomitting and interactible diarrhea ( multiple episodes, watery brown, no abdominal pain or faver or chils), very poor oral intake for the past 3 days; she was not able to take her medications. Over efrain, she felf progressive fatigue and dizziness. No CP, SOB, recent travel or sick contact or URI symptoms. on a separate note, in the ED initialy she was hypotenssive down to 96 mmhg sbp and responded to fluid therapy Allergies/Medications Allergies: Coded Allergies: Penicillins (ANAPHYLAXIS 07/21/16) cyanocobalamin (vitamin B12) (CYANOCOBALAMIN) (HIVES 07/21/16) Home Med list Albuterol Sulfate 2.5 MG/3 ML (0.083 %) VIAL.NEB 1 Vial INH/PATI Q4P PRN DYSPNEA (Reported) Diltiazem HCl (Diltiazem 24HR ER) 120 MG CAP.ER.24H 1 CAP PO DAILY HR CONTROL (Reported) Docusate Sodium 100 MG CAPSULE 1 CAP PO DAILY PRN CONSTIPATION Escitalopram Oxalate 5 MG TABLET 1 TAB PO DAILY MENTAL HEALTH (Reported) Ferrous Sulfate 325 MG (65 MG IRON) TABLET 1 TAB PO DAILY Iron Deficiency Fluticasone/Vilanterol (Breo Ellipta 200-25 Mcg INH) 200 MCG-25 MCG/DOSE BLST.W.DEV 1 INH INH DAILY COPD (Reported) Gabapentin (Neurontin) 300 MG CAPSULE 1 CAP PO TID nerve pain (Reported) Hydrocodone/Acetaminophen ([place] 5-325 Tablet) 5 MG-325 MG TABLET 1 TAB PO Q4- 6 PRN PRN pain Hydrocortisone 10 MG TABLET 2 TAB PO DAILY UNKNOWN (Reported) Hydrocortisone 10 MG TABLET 1 TAB PO QPM UNKNOWN (Reported) Ipratropium/Albuterol Sulfate (Combivent Respimat Inhal [place]) 20 MCG-100 MCG/ ACTUATION MIST.INHAL 1 PUFF INH BID COPD (Reported) Levothyroxine Sodium (Synthroid) 112 MCG TABLET 0.112 MG PO DAILY AC HYPOTHYROIDISM Melatonin 3 MG TABLET 2 TAB PO QPM INSOMNIA (Reported) Mirabegron (Myrbetriq) 25 MG TAB.ER.24H 1 TAB PO DAILY BLADDER (Reported) Omeprazole 20 MG CAPSULE.DR 40 MG PO BID Upper GI Ulcer From 10/26-11/04 - take this twice per day. From 11/05, take daily. Oxybutynin Chloride (Oxybutynin Chloride ER) 15 MG TAB.ER.24 1 TAB PO DAILY BLADDER (Reported) Polyethylene Glycol 3350 (Miralax) 17 GRAM/DOSE POWDER 1 PAC PO DAILY PRN CONSTIPATION Sennosides/Docusate Sodium (Senna-Time S Tablet) 8.6 MG-50 MG TABLET 1 TAB PO AT BEDTIME CONSTIPATION Trazodone HCl 50 MG TABLET 1 TAB PO QPM SLEEP (Reported) Compliance With Home Meds: GOOD Past History Travel History Traveled to [place] past 21 day No Medical History Neurological: NONE EENT: NONE Cardiovascular: CAD, TACHYCARDIA Respiratory: COPD, emphysema, last COPD exacer in 06/2016 Gastrointestinal: DIARRHEA Hepatic: NONE Renal: NONE Musculoskeletal: chronic back pain, disk herniation, 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 Psychiatric: anxiety Endocrine: adrenal insufficiency, hypopituitarism, hypothyroidism Blood Disorders: anemia Cancer(s): NONE 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 self Services at Home: None ETOH Use: denies use Illicit Drug Use: denies illicit drug use Functional Ability ADLs Independent: dressing, eating, toileting, bathing. Ambulation: cane Sexual History Past Sexual History Unobtainable at this time Review of Systems Review of Systems Constitutional: Reports: see HPI. Cardiovascular: Reports: no symptoms. Respiratory: Reports: no symptoms. GI: Reports: diarrhea, nausea, vomiting. Denies: abdominal pain, bloating, constipation. Musculoskeletal: Reports: see HPI. Exam & Diagnostic Data Last 24 Hrs of Vital Signs/I&O Vital Signs Date Time Temp Pulse Resp B/P B/P Pulse O2 O2 Flow FiO2 Mean Ox Delivery Rate 05/10 1538 98.9 88 18 124/66 95 Room Air 05/10 1258 99.2 95 18 122/60 95 Room Air 05/10 1119 99 Room Air 05/10 0946 97.9 98 18 96/63 97 Room Air Room Air Intake & Output 05/10 1600 05/10 0800 05/10 0000 Intake Total 0 Output Total Balance 0 Intake, Oral 0 Patient 190 lb Weight Weight Reported by Patient Measurement Method Physical Exam General Appearance Alert, Oriented X3, Cooperative Skin pale Skin Temp/Moisture Exam: Cool/Dry HEENT MM are dry , pale Neck Supple, No JVD, No thryomegaly Lymphatic Axillary nl, Cervical nl Cardiovascular Normal S1, Normal S2, No Murmurs Lungs Clear to Auscultation, Normal Air Movement Abdomen Soft, No Tenderness Extremities No Clubbing, No Cyanosis Last 24 Hrs of Labs/Rocky: Laboratory Tests 05/10/17 1715: Urine Color YEL, Urine Clarity CLEAR, Urine pH 6.0, Ur Specific [place] 1.010, Urine Protein NEG, Urine Ketones NEG, Urine Nitrite NEG, Urine Bilirubin NEG, Urine Urobilinogen 0.2, Ur Leukocyte Esterase SMALL H, Ur Microscopic SEDIMENT EXAMINED, Urine RBC RARE, Urine WBC RARE, Ur Epithelial Cells FEW, Urine Bacteria FEW H, Urine Mucus RARE, Urine Hemoglobin NEG, Urine Glucose NEG 05/10/17 1426: Lactic Acid Cancelled 05/10/17 1220: Anion Gap 7, Estimated GFR > 60, BUN/Creatinine Ratio 25.0, Glucose 75, Lactic Acid 1.2, Calcium 8.2 L, Total Bilirubin 0.6, AST 20, ALT 36, Alkaline Phosphatase 107, Troponin I < 0.01, C-Reactive Prot, Quant 5.3 H, Total Protein 5.3 L, Albumin 2.9 L, Globulin 2.4, Albumin/Globulin Ratio 1.2, Lipase 89 05/10/17 1140: CBC w Diff NO MAN DIFF REQ, RBC 5.31, MCV 75.7 L, MCH 24.8 L, MCHC 32.7 L, RDW 14.1, MPV 9.5, Gran % 70.4, Lymphocytes % 18.6 L, Monocytes % 10.1 H, Eosinophils % 0.7, Basophils % 0.2, Absolute Granulocytes 3.1, Absolute Lymphocytes 0.8 L, Absolute Monocytes 0.4, Absolute Eosinophils 0, Absolute Basophils 0 Diagnostic Data EKG Results none Assessment/Plan Assessment: 76-year-old woman with multiple medical problems significant laura syndrom was admitted for interactible nausea and vomitting and poor oral tolerance. She was hypotenssive and responded well to fluid therapy. Labs CBC: WNL; Na 134; K 3.6; BUN 20 Nagative UA Paln - admit to as an observation - stop unnecessary medication overnioght and reassess in the am - give stress dose of IV solucortef 100 mg once and continue her home dose as equvalent IV 20 mg hydrocortisone 20 mg in the pm and 10 mg in the am - start replacing levothyroxine IV 0.56 in the am - hold anti HTN and opioid medication. -IV D5W NL saline 50 ml per hour -zofran as needed for nausea - EKG prior to giving Zofran - SQ lovenox for DVT FC As Ranked By This Provider Problem List: 1. Intractable nausea and vomiting Qualifiers Vomiting type: unspecified Qualified Code: R11.2 - Nausea with vomiting, unspecified 2. Hypopituitarism Core Measures/Misc (11/27) Acute Coronary Syndrome ACS Diagnosis: No Congestive Heart Failure Congestive Heart Failure Diagnosis No Cerebrovascular Accident CVA/TIA Diagnosis: No VTE (View Protocol) VTE Risk Factors Acute Medical Illness No Mechanical VTE Prophylaxis d/t N/A MechProphylax Ordered No VTE Pharm Prophylaxis d/t NA PharmProphylax ordered Sepsis (View protocol) Sepsis Present: No Resident Review Statement Resident Statement: examined this patient, discussed with director international, agreed with director international, discussed with family, reviewed EMR data (avail), discussed with nursing , discussed with case mgmt, reviewed images, amended to note Kanika ZAVALETA,Valeria 05/10/17 1688: Attending MD Review Statement Attending Statement Attending Assessment/Plan: Attending Statement Attending MD Statement: examined this patient, discuss w/resident/PA/ABATTOIR MANAGER, agreed w/resident/PA/ABATTOIR MANAGER Attending Assessment/Plan: Patient seen and examined. Plan of care discussed with the medical team and the patient. Available lab work and radiology test reports were reviewed. Ms. Cristina is a 76 yo F with PMH of CAD, COPD (last exacerbation in 06/2016), Adrenal insufficiency/Hypopituitarism/Laura's syndrome, Chronic back pain, Recent GI bleed (admitted to [place] 10/2016) presents with history of for nausea vomiting diarrhea for last 3 days. Patient has not been able to keep anything down. She denies any recent exposure to illness however she has been suffering from cold like symptoms. Patient denies any recent medication changes. On exam her vital signs are stable. MAXIMUM TEMPERATURE 99.2. Labs were reviewed. CT abdomen and pelvis-No acute intra-abdominal or intrapelvic pathology is visualized. Scattered colonic diverticula without evidence of diverticulitis. Moderate hiatal hernia. Exam: General: Patient awake alert oriented without any distress; appears lethargic CVS: S1 plus S2 without any murmur or gallops Chest: Few scattered crepitation without any wheeze. There is no respiratory distress. 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: Awake alert oriented without any focal neuro deficit and follows commands appropriately Extremities: No edema; no clubbing or cyanosis noted Laboratory Tests 05/10/17 1426: Lactic Acid Cancelled 05/10/17 1220: Anion Gap 7, Estimated GFR > 60, BUN/Creatinine Ratio 25.0, Glucose 75, Lactic Acid 1.2, Calcium 8.2 L, Total Bilirubin 0.6, AST 20, ALT 36, Alkaline Phosphatase 107, Troponin I < 0.01, C-Reactive Prot, Quant 5.3 H, Total Protein 5.3 L, Albumin 2.9 L, Globulin 2.4, Albumin/Globulin Ratio 1.2, Lipase 89 05/10/17 1140: CBC w Diff NO MAN DIFF REQ, RBC 5.31, MCV 75.7 L, MCH 24.8 L, MCHC 32.7 L, RDW 14.1, MPV 9.5, Gran % 70.4, Lymphocytes % 18.6 L, Monocytes % 10.1 H, Eosinophils % 0.7, Basophils % 0.2, Absolute Granulocytes 3.1, Absolute Lymphocytes 0.8 L, Absolute Monocytes 0.4, Absolute Eosinophils 0, Absolute Basophils 0 Assessment * Acute gastritis likely viral * history of coronary artery disease, * hypertension, * COPD * Hypertension improved with IV fluids Plan * Hold stool softeners * IV fluids to finish her third liter * Okay to feed patient * Hold Cardizem for now; can resume once blood pressure stabilizes * if Pressure does not respond to fluid patient may need stress dose of hydrocortisone
[2017-05-10 22:22] VITALS: BP 138/70
[2017-05-11 06:39] VITALS: BP 130/60
--- NOTE | 2017-05-11 06:56 | PN- Housestaff ---
See Addendum Subjective Follow-up For: N/V Subjective: Augusto admitted yesterday. She had 3 days of N/V/D, nonbloody, with poor oral itnake. She has not vomitted since coming to the hospital, feels a little better this morning. Compalining of chronic back pain. Review of Systems Constitutional: Reports: no symptoms. EENTM: Reports: no symptoms. Cardiovascular: Reports: no symptoms. Respiratory: Reports: no symptoms. Gastrointestinal: Reports: see HPI. Genitourinary: Reports: no symptoms. Musculoskeletal: Reports: see HPI. Skin: Reports: no symptoms. Neurological/Psychological: Reports: no symptoms. Hematologic/Endocrine: Reports: no symptoms. Immunologic/Allergic: Reports: no symptoms. Objective Last 24 Hrs of Vital Signs/I&O Vital Signs Date Time Temp Pulse Resp B/P B/P Pulse O2 O2 Flow FiO2 Mean Ox Delivery Rate 05/11 0639 98.2 84 20 130/60 96 Room Air 05/10 2222 97.6 84 18 138/70 94 Room Air 05/10 2145 Room Air 05/10 2054 98.4 96 16 167/86 95 Room Air 05/10 1538 98.9 88 18 124/66 95 Room Air 05/10 1258 99.2 95 18 122/60 95 Room Air 05/10 1119 99 Room Air 05/10 0946 97.9 98 18 96/63 97 Room Air Room Air Intake & Output 03/ 0800 03/ 0000 05/10 1600 Intake Total 540 0 Output Total 600 Balance -60 0 Intake, IV 300 Intake, Oral 240 0 Number 0 Bowel Movements Output, Urine 600 Patient 86.183 kg 86.183 kg Weight Weight Reported by Patient Measurement Method Physical Exam General Appearance: Alert, Oriented X3, Cooperative, No Acute Distress Cardiovascular: Regular Rate, Normal S1, Normal S2 Lungs: Clear to Auscultation, Normal Air Movement Abdomen: Normal Bowel Sounds, Soft, No Tenderness Extremities: No Edema, Normal Pulses, No Tenderness/Swelling Current Medications: Current Medications Sig/Veronique Start time Last Medication Dose Route Stop Time Status Admin Acetaminophen 1,000 MG Q6P PRN 05/10 1915 AC IV Acetaminophen 0 .STK-MED ONE 05/10 1209 DC IV Acetaminophen 1,000 MG ONCE ONE 05/10 1130 DC 05/10 N/A 1 UNIT IV 05/10 1144 1208 Albuterol Sulfate 3 ML Q4P PRN 05/10 190 AC INH Dextrose/Sodium 1,000 ML Q20H 05/10 1914 AC 05/10 Chloride IV 2217 Enoxaparin Sodium 40 MG DAILY 05/10 1911 AC 05/11 SC 0154 Hydrocortisone 20 MG 1000 05/11 1000 AC Sodium Succinate IV Hydrocortisone 10 MG 2200 05/10 2199 AC 05/11 Sodium Succinate IV 0154 Hydrocortisone 100 MG ONE ONE 05/10 181 DC 05/10 Sodium Succinate IV 05/10 181 1846 Levothyroxine Sodium 0.56 MCG 1000 05/11 1000 AC IV Metoclopramide HCl 0 .STK-MED ONE 05/10 1425 DC .ROUTE Metoclopramide HCl 10 MG ONCE ONE 05/10 1415 DC 05/10 IV 05/10 1416 1425 Morphine Sulfate 1 MG Q4P PRN 05/10 1914 AC 05/11 IV 0204 Ondansetron HCl 4 MG Q6P PRN 05/10 1914 AC IV Ondansetron HCl 0 .STK-MED ONE 05/10 1209 DC .ROUTE Ondansetron HCl 4 MG ONCE ONE 05/10 1130 DC 05/10 IV 05/10 1131 1208 Oxycodone HCl 15 MG DAILY 05/11 1000 AC PO Sodium Chloride 1,000 ML BOLUS ONE 05/10 1530 DC 05/10 IV 05/10 1629 1550 Sodium Chloride 1,000 ML BOLUS ONE 05/10 1315 DC 05/10 IV 05/10 1414 1314 Sodium Chloride 1,000 ML BOLUS ONE 05/10 1130 DC 05/10 IV 05/10 1229 1143 Trazodone HCl 50 MG QPM 05/10 2199 AC 05/11 PO 0154 Last 24 Hrs of Lab/Rocky Results Last 24 Hrs of Labs/Mics: Laboratory Tests 05/10/17 1715: Urine Color YEL, Urine Clarity CLEAR, Urine pH 6.0, Ur Specific [place] 1.010, Urine Protein NEG, Urine Ketones NEG, Urine Nitrite NEG, Urine Bilirubin NEG, Urine Urobilinogen 0.2, Ur Leukocyte Esterase SMALL H, Ur Microscopic SEDIMENT EXAMINED, Urine RBC RARE, Urine WBC RARE, Ur Epithelial Cells FEW, Urine Bacteria FEW H, Urine Mucus RARE, Urine Hemoglobin NEG, Urine Glucose NEG 05/10/17 1426: Lactic Acid Cancelled 05/10/17 1220: Anion Gap 7, Estimated GFR > 60, BUN/Creatinine Ratio 25.0, Glucose 75, Lactic Acid 1.2, Calcium 8.2 L, Total Bilirubin 0.6, AST 20, ALT 36, Alkaline Phosphatase 107, Troponin I < 0.01, C-Reactive Prot, Quant 5.3 H, Total Protein 5.3 L, Albumin 2.9 L, Globulin 2.4, Albumin/Globulin Ratio 1.2, Lipase 89 05/10/17 1140: CBC w Diff NO MAN DIFF REQ, RBC 5.31, MCV 75.7 L, MCH 24.8 L, MCHC 32.7 L, RDW 14.1, MPV 9.5, Gran % 70.4, Lymphocytes % 18.6 L, Monocytes % 10.1 H, Eosinophils % 0.7, Basophils % 0.2, Absolute Granulocytes 3.1, Absolute Lymphocytes 0.8 L, Absolute Monocytes 0.4, Absolute Eosinophils 0, Absolute Basophils 0 Assessment/Plan Assessment: 76-year-old woman with multiple medical problems significant laura syndrom was admitted for interactible nausea and vomitting and poor oral tolerance. Problem list: 1. 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 It is likely that this is secondary to an adrenal crisis and she has not had further vomiting since resuming a stress dose of steroids last night. -Continue PO hydrocortisone home dose: 20mg QAM and 10mg QPM -50mg IV hydrocortisone x1, consider more if vitals unstable/not tolerating PO -Full liquid diet, advance as tolerated -IV formulation of medications -D5 normal saline while NPO -Anti-emetics as necessary -Holding diltiazem #Chronic medical problems: -Continue other home medications DVT prophylaxis with enoxaparin Full liquid diet Full code Problem List: 1. Adrenal crisis Pain Ratin Pain Location: no Pain Goal: Remain pain free Pain Plan: see a/p Tomorrow's Labs & Rationales: bep
[2017-05-11 14:03] VITALS: BP 122/64
--- NOTE | 2017-05-11 14:54 | Cons- Endocrinology ---
General Information and HPI Consulting Request Date of Consult: 05/11/17 Requested By: medical team Reason for Consult: management of adrenal insufficiency Source of Information: patient, old records Exam Limitations: no limitations History of Present Illness: 75 -year-old female with significant past medical history of Bobo syndrome ( secondary adrenal insufficiency and secondary hypothyroidism), COPD,paroxismal atrial fibrillation, came to ED with chief complaint of nausea and vomiting. She received hydrocortisone 100 mg iv last night and Hydrocortisone 50 mg iv this morning. Nausea/vomiting has resolved. However, her po intake remains poor. She is on D5NS at 50 ml/hour. Levothyroxine 56 mcg iv daily. Allergies/Medications Allergies: Coded Allergies: Penicillins (ANAPHYLAXIS 07/21/16) cyanocobalamin (vitamin B12) (CYANOCOBALAMIN) (HIVES 07/21/16) Home Med List: Albuterol Sulfate 2.5 MG/3 ML (0.083 %) VIAL.NEB 1 Vial INH/PATI Q4P PRN DYSPNEA (Reported) Diltiazem HCl (Diltiazem 24HR ER) 120 MG CAP.ER.24H 1 CAP PO DAILY HR CONTROL (Reported) Docusate Sodium 100 MG CAPSULE 1 CAP PO DAILY PRN CONSTIPATION Escitalopram Oxalate 5 MG TABLET 1 TAB PO DAILY MENTAL HEALTH (Reported) Ferrous Sulfate 325 MG (65 MG IRON) TABLET 1 TAB PO DAILY Iron Deficiency Fluticasone/Vilanterol (Breo Ellipta 200-25 Mcg INH) 200 MCG-25 MCG/DOSE BLST.W.DEV 1 INH INH DAILY COPD (Reported) Gabapentin (Neurontin) 300 MG CAPSULE 1 CAP PO TID nerve pain (Reported) Hydrocodone/Acetaminophen ([place] 5-325 Tablet) 5 MG-325 MG TABLET 1 TAB PO Q4- 6 PRN PRN pain Hydrocortisone 10 MG TABLET 2 TAB PO DAILY UNKNOWN (Reported) Hydrocortisone 10 MG TABLET 1 TAB PO QPM UNKNOWN (Reported) Ipratropium/Albuterol Sulfate (Combivent Respimat Inhal [place]) 20 MCG-100 MCG/ ACTUATION MIST.INHAL 1 PUFF INH BID COPD (Reported) Levothyroxine Sodium (Synthroid) 112 MCG TABLET 0.112 MG PO DAILY AC HYPOTHYROIDISM Melatonin 3 MG TABLET 2 TAB PO QPM INSOMNIA (Reported) Mirabegron (Myrbetriq) 25 MG TAB.ER.24H 1 TAB PO DAILY BLADDER (Reported) Omeprazole 20 MG CAPSULE.DR 40 MG PO BID Upper GI Ulcer From 10/26-11/04 - take this twice per day. From 11/05, take daily. Oxybutynin Chloride (Oxybutynin Chloride ER) 15 MG TAB.ER.24 1 TAB PO DAILY BLADDER (Reported) Polyethylene Glycol 3350 (Miralax) 17 GRAM/DOSE POWDER 1 PAC PO DAILY PRN CONSTIPATION Sennosides/Docusate Sodium (Senna-Time S Tablet) 8.6 MG-50 MG TABLET 1 TAB PO AT BEDTIME CONSTIPATION Trazodone HCl 50 MG TABLET 1 TAB PO QPM SLEEP (Reported) Review of Systems Review of Systems Constitutional: Reports: see HPI. Cardiovascular: Denies: chest pain. Respiratory: Denies: cough, short of breath. GI: Reports: nausea, vomiting. Musculoskeletal: Denies: back pain. Hematologic/Endocrine: Reports: see HPI. Past History Travel History Traveled to [place] past 21 day No Medical History Blood Transfusion Hx: Yes Neurological: NONE EENT: NONE Cardiovascular: CAD, TACHYCARDIA Respiratory: COPD, emphysema, last COPD exacer in 06/2016 Gastrointestinal: DIARRHEA Hepatic: NONE Renal: NONE Musculoskeletal: chronic back pain, disk herniation, 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 Psychiatric: anxiety Endocrine: adrenal insufficiency, hypopituitarism, hypothyroidism Blood Disorders: anemia Cancer(s): NONE RN AMBULATORY/Reproductive: NONE Other Medical Hx: BOBO'S SYNDROME Surgical History Surgical History: knee replacement, BACK SX WRIST SX SHOULDER SX HYSTERECTOMY Family History Relations & Conditions If Any: SISTER FH: heart disease BROTHER FH: heart disease MOTHER FH: heart disease FATHER FH: heart disease FH: hypertension Psychosocial History Who Do You Live With? self Services at Home: None Smoking Status: Former Smoker ETOH Use: denies use Illicit Drug Use: denies illicit drug use Functional Ability ADLs Independent: dressing, eating, toileting, bathing. Ambulation: cane Exam & Diagnostic Data Last 24 Hrs of Vital Signs/I&O Vital Signs Date Time Temp Pulse Resp B/P B/P Pulse O2 O2 Flow FiO2 Mean Ox Delivery Rate 05/11 1403 99.3 96 20 122/64 94 Room Air 05/11 0639 98.2 84 20 130/60 96 Room Air 05/10 2222 97.6 84 18 138/70 94 Room Air 05/10 2145 Room Air 02/28 2054 98.4 96 16 167/86 95 Room Air 05/10 1538 98.9 88 18 124/66 95 Room Air Intake & Output 05/11 1600 05/11 0800 05/11 0000 Intake Total 400 540 Output Total 300 600 Balance 100 -60 Intake, IV 300 Intake, Oral 400 240 Number 0 0 Bowel Movements Output, Urine 300 600 Patient 190 lb Weight Physical Exam General Appearance: no apparent distress Neck: supple Respiratory: lungs clear Cardiovascular: regular rate/rhythm Gastrointestinal: soft, non-tender Extremities: no edema Skin: small lesion over the surgical scar in her back Labs/Rocky Results: Laboratory Tests 05/11 05/10 0715 1715 Chemistry Sodium (137 - 145 mmol/L) 141 Potassium (3.5 - 5.1 mmol/L) 3.7 Chloride (98 - 107 mmol/L) 108 H Carbon Dioxide (22 - 30 mmol/L) 22 Anion Gap (5 - 16) 11 BUN (7 - 17 mg/dL) 12 Creatinine (0.5 - 1.0 mg/dL) 0.6 Estimated GFR (>60 ml/min) > 60 BUN/Creatinine Ratio (7 - 25 %) 20.0 Urines Urine Color (YEL,AMB,STR) YEL Urine Clarity (CLEAR) CLEAR Urine pH (5.0 - 8.0) 6.0 Ur Specific [place] (1.001 - 1.035) 1.010 Urine Protein (NEG,<30 MG/DL) NEG Urine Ketones (NEG) NEG Urine Nitrite (NEG) NEG Urine Bilirubin (NEG) NEG Urine Urobilinogen (0.1 - 1.0 EU/dl) 0.2 Ur Leukocyte Esterase (NEG) SMALL H Ur Microscopic SEDIMENT EXAMINED Urine RBC (0 - 5 /HPF) RARE Urine WBC (0 - 2 /HPF) RARE Ur Epithelial Cells (NONE,FEW) FEW Urine Bacteria (NEG/NONE) FEW H Urine Mucus (FEW,NONE) RARE Urine Hemoglobin (NEG) NEG Urine Glucose (N MG/DL) NEG Assessment/Plan Assessment/Plan 75 -year-old female with significant past medical history of Bobo syndrome ( secondary adrenal insufficiency and secondary hypothyroidism), COPD,paroxismal atrial fibrillation, came to ED with chief complaint of nausea and vomiting. She received hydrocortisone 100 mg iv last night and Hydrocortisone 50 mg iv this morning. Nausea/vomiting has resolved. However, her po intake remains poor. She is on D5NS at 50 ml/hour. Levothyroxine 56 mcg iv daily. Recommend: Hydrocortisone 25 mg iv twice a day for now; monitor FSG at least once a day; monitor vital signs and electrolytes; will follow. Consult Acknowledgment - Thank you for your consult request.
[2017-05-11 22:04] VITALS: BP 104/50
[2017-05-12 07:12] VITALS: BP 116/54
--- NOTE | 2017-05-12 07:42 | PN- Housestaff ---
See Addendum Subjective Follow-up For: N/V, adrenal crissi Subjective: Patient did not tolerate dinner last night, had nonbloody emesisx3. No diarrhea. She does not feel well this morning. No CP or abd pain. Review of Systems Constitutional: Reports: no symptoms. EENTM: Reports: no symptoms. Cardiovascular: Reports: no symptoms. Respiratory: Reports: no symptoms. Gastrointestinal: Reports: see HPI. Genitourinary: Reports: no symptoms. Musculoskeletal: Reports: no symptoms. Skin: Reports: no symptoms. Neurological/Psychological: Reports: no symptoms. Hematologic/Endocrine: Reports: no symptoms. Immunologic/Allergic: Reports: no symptoms. Objective Last 24 Hrs of Vital Signs/I&O Vital Signs Date Time Temp Pulse Resp B/P B/P Pulse O2 O2 Flow FiO2 Mean Ox Delivery Rate 05/12 0712 98.1 88 18 116/54 95 05/11 2204 98.3 92 19 104/50 95 Room Air 05/11 1704 Room Air 05/11 1403 99.3 96 20 122/64 94 Room Air Intake & Output 05/12 0800 05/12 0000 05/11 1600 Intake Total 650 800 Output Total 300 325 300 Balance -300 325 500 Intake, IV 350 400 Intake, Oral 300 400 Number 0 Bowel Movements Output, 25 Emesis Output, Urine 300 300 300 Physical Exam General Appearance: Alert, Oriented X3, Cooperative, No Acute Distress Cardiovascular: Regular Rate, Normal S1, Normal S2 Lungs: Clear to Auscultation Abdomen: Normal Bowel Sounds, Soft, No Tenderness Extremities: No Edema, Normal Pulses, No Tenderness/Swelling Current Medications: Current Medications Sig/Veronique Start time Last Medication Dose Route Stop Time Status Admin Acetaminophen 1,000 MG Q6P PRN 05/10 1915 AC IV Albuterol Sulfate 3 ML BID 05/11 2200 AC 05/11 INH 1842 Albuterol Sulfate 3 ML Q4P PRN 05/10 1900 DC INH Bacitracin 1 STEVAN TID 05/11 1600 AC 05/11 TOP 2119 Budesonide/ 2 PUF BID 05/11 1730 AC 05/11 Formoterol Fumarate INH 1825 Dextrose/Sodium 1,000 ML Q20H 05/11 1600 AC 05/11 Chloride IV 1604 Dextrose/Sodium 1,000 ML Q20H 05/10 1915 DC 05/10 Chloride IV 2217 Enoxaparin Sodium 40 MG DAILY 05/10 1911 AC 05/11 SC 0154 Hydrocortisone 25 MG Q12 05/11 2199 AC 05/11 Sodium Succinate IV 2107 Hydrocortisone 20 MG 1000 05/11 1000 DC 05/11 Sodium Succinate IV 1114 Hydrocortisone 50 MG ONE ONE 05/11 0930 DC 05/11 Sodium Succinate IV 05/11 0931 1113 Hydrocortisone 10 MG 0 05/10 2199 DC 05/11 Sodium Succinate IV 0154 Levothyroxine Sodium 0.56 MCG 1000 05/11 1000 DC IV Levothyroxine Sodium 56 MCG 1000 05/11 1000 AC 05/11 IV 0953 Morphine Sulfate 4 MG .STK-MED ONE 05/11 2112 DC IM 05/11 2113 Morphine Sulfate 4 MG .STK-MED ONE 05/11 1359 DC IM 05/11 1400 Morphine Sulfate 1 MG Q4P PRN 05/10 1914 AC 05/11 IV 2114 Ondansetron HCl 4 MG Q6P PRN 05/10 1914 AC 05/11 IV 1824 Oxycodone HCl 15 MG DAILY 05/11 1000 AC 05/11 PO 0902 Patient Medication 1 ED ONE ONE 05/11 1730 DC 05/11 Teaching ED 05/11 1731 1824 Trazodone HCl 50 MG QPM 05/10 2199 AC 05/11 PO 2107 Last 24 Hrs of Lab/Rocky Results Last 24 Hrs of Labs/Mics: Laboratory Tests 05/12/17 0613: Sodium Pending, Potassium Pending, Chloride Pending, Carbon Dioxide Pending, Anion Gap Pending, BUN Pending, Creatinine Pending, BUN/Creatinine Ratio Pending Assessment/Plan Assessment: 76-year-old woman with multiple medical problems significant laura syndrom was admitted for interactible nausea and vomitting and poor oral tolerance. Problem list: 1. Gastroenteritis 2. 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 It is likely that she developed a gastroenteritis that has pushed her into an adrenal crisis. Her blood pressure has been stable overnight but she continues to have nausea and vomiting. -IV hydrocortisone 25 mg twice a day -Appreciate endocrinology recommendations -Full liquid diet, advance as tolerated -IV formulation of medications -D5 normal saline while NPO -Anti-emetics as necessary -Holding diltiazem #Chronic medical problems: -Continue other home medications DVT prophylaxis with enoxaparin Full liquid diet Full code Problem List: 1. Gastroenteritis Pain Ratin Pain Location: no Pain Goal: Remain pain free Pain Plan: see a/p Tomorrow's Labs & Rationales: bep
--- NOTE | 2017-05-12 08:22 | PN- Endocrinology ---
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 She received hydrocortisone 100 mg iv last night and Hydrocortisone 50 mg iv this morning. Nausea/vomiting has resolved. However, her po intake remains poor. She is on D51/2 NS at 50 ml/hour, Levothyroxine 56 mcg iv daily, Hydrocortisone 25 mg iv twice a day day. Patient still feels nauseous. She vomited after dinner last night. Plan: continue the current Hydrocortisone 25 mg iv twice a day for now; It is okay to change Levothyroxine from 56 mcg iv daily to 112 mcg po daily if she can take the pills. monitor vital signs, glucose and electrolytes. will follow. Subjective Subjective: She still feels nauseous this morning Objective Last 24 Hrs of Vital Signs/I&O Vital Signs Date Time Temp Pulse Resp B/P B/P Pulse O2 O2 Flow FiO2 Mean Ox Delivery Rate 05/12 0712 98.1 88 18 116/54 95 05/11 2204 98.3 92 19 104/50 95 Room Air 05/11 1704 Room Air 05/11 1403 99.3 96 20 122/64 94 Room Air Intake & Output 05/12 1600 05/12 0800 05/12 0000 Intake Total 550 650 Output Total 300 325 Balance 250 325 Intake, IV 350 350 Intake, Oral 200 300 Output, 25 Emesis Output, Urine 300 300 Results Pertinent Lab/Rocky Results: Laboratory Tests 05/12 06 Chemistry Sodium Pending Potassium Pending Chloride Pending Carbon Dioxide Pending Anion Gap Pending BUN Pending Creatinine Pending BUN/Creatinine Ratio Pending
[2017-05-12] MEDS ORDERED: ZOFRAN ODT4 M1 SL (09:46)
--- NOTE | 2017-05-12 09:47 | Patient Discharge Instructions ---
Discharge Instructions General Discharge Information You were seen/treated for: Gastroenteritis, adrenal insufficiency Watch for these problems: Fever, chest pain, shortness of breath Special Instructions: Please take all medications as directed. Please follow-up with primary care. Please take 20 mg of hydrocortisone this evening instead of your usual 10 mg. Tomorrow, resume your usual dosing. Diet Continue normal diet: Yes Activity Full Activity/No Limits: Yes Acute Coronary Syndrome Inclusion Criteria At DC or during hospital stay patient has or had the following: ACS DIAGNOSIS No Discharge Core Measures Meds if any: Prescribed or Continued at Discharge Meds if any: NOT Prescribed or Continued at Discharge Congestive Heart Failure Inclusion Criteria At DC or during hospital stay patient has or had the following: CHF DIAGNOSIS No Discharge Core Measures Meds if any: Prescribed or Continued at Discharge Meds if any: NOT Prescribed or Continued at Discharge Cerebrovascular accident Inclusion Criteria At DC or during hospital stay patient has or had the following: CVA/TIA Diagnosis No Discharge Core Measures Meds if any: Prescribed or Continued at Discharge Meds if any: NOT Prescribed or Continued at Discharge Venous thromboembolism Inclusion Criteria VTE Diagnosis No VTE Type NONE VTE Confirmed by (Test) NONE Discharge Core Measures - Per Current guidelines, there needs to be overlap - treatment for the first 5 days of Warfarin therapy. - If discharged on Warfarin prior to 5 days of - overlap therapy, the patient will need to be - assessed for post discharge needs including - *Post discharge parental anticoagulation - *Warfarin and/or parental anticoagulation education - *Follow up date to check INR post discharge At least 5 days overlap therapy as Inpatient No Meds if any: Prescribed or Continued at Discharge Note: Overlap Therapy is Warfarin and Anticoagulant Meds if any: NOT Prescribed or Continued at Discharge
[2017-05-12 14:38] VITALS: BP 150/73
--- NOTE | 2017-05-12 15:20 | Discharge Summary ---
Visit Information Visit Dates Admission Date: 05/10/17 Hospital Course Course Attending Physician: Scotty Cotto MD Primary Care Physician: Aleida Banks DO Allergies: Coded Allergies: Penicillins (ANAPHYLAXIS 07/21/16) cyanocobalamin (vitamin B12) (CYANOCOBALAMIN) (HIVES 07/21/16) Disposition Summary Disposition Discharge Disposition: home or self care Discharge Instructions General Discharge Information Code Status: Full Code Patient's Diet: Regular diet Patient's Activity: As tolerated Follow-Up Instructions/Appts: Please take all medications as directed. Please follow with primary care and endocrinology. Medications at Discharge Discharge Medications: Continue taking these medications: Mirabegron (Myrbetriq) 25 MG TAB.ER.24H 1 Tablet ORAL DAILY Qty = 30 Comments: NOT GIVEN IN HOSPITAL Melatonin (Melatonin) 3 MG TABLET 2 Tablet ORAL Every night Comments: Last Taken: 02/19/17 Time: 9PM Trazodone HCl (Trazodone HCl) 50 MG TABLET 1 Tablet ORAL Every night Qty = 30 Comments: Last Taken: 02/19/17 Time: 9PM Albuterol Sulfate (Albuterol Sulfate) 2.5 MG/3 ML (0.083 %) VIAL.NEB 1 Vial Inhale Solution EVERY 4 HOURS NEEDED as needed for DYSPNEA Comments: Last Taken: 02/20/17 Time: 9AM Ipratropium/Albuterol Sulfate (Combivent Respimat Inhal [place]) 20 MCG-100 MCG/ ACTUATION MIST.INHAL 1 PUFF Inhale through mouth TWICE DAILY Qty = 4 Comments: NOT GIVEN IN HOSPITAL Fluticasone/Vilanterol (Breo Ellipta 200-25 Mcg INH) 200 MCG-25 MCG/DOSE BLST.W.DEV 1 Inhalation Inhale through mouth DAILY Qty = 60 Comments: NOT GIVEN IN HOSPITAL Levothyroxine Sodium (Synthroid) 112 MCG TABLET 0.112 Milligram ORAL DAILY BEFORE BREAKFAST Qty = 30 Comments: Last Taken: 02/20/17 Time: 6AM Escitalopram Oxalate (Escitalopram Oxalate) 5 MG TABLET 1 Tablet ORAL DAILY Qty = 30 Comments: Last Taken: 02/20/17 Time: 9AM Ferrous Sulfate (Ferrous Sulfate) 325 MG (65 MG IRON) TABLET 1 Tablet ORAL DAILY Qty = 30 Comments: Last Taken: 02/20/17 Time: 9AM Diltiazem HCl (Diltiazem 24HR ER) 120 MG CAP.ER.24H 1 Capsule ORAL DAILY Comments: Last Taken: 02/20/17 Time: 9AM Omeprazole (Omeprazole) 20 MG CAPSULE.DR 40 Milligram ORAL TWICE DAILY Qty = 60 Instructions: From 10/26-11/04 - take this twice per day. From 11/05, take daily. Comments: Last Taken: 02/20/17 Time: 9AM Gabapentin (Neurontin) 300 MG CAPSULE 1 Capsule ORAL THREE TIMES DAILY Comments: Last Taken: 02/20/17 Time: 9AM Hydrocodone/Acetaminophen ([place] 5-325 Tablet) 5 MG-325 MG TABLET 1 Tablet ORAL EVERY 4-6 HOURS NEEDED as needed for pain Qty = 8 Comments: NOT GIVEN IN HOSPITAL Docusate Sodium (Docusate Sodium) 100 MG CAPSULE 1 Capsule ORAL DAILY as needed for CONSTIPATION Qty = 30 Comments: Last Taken: 02/19/17 Time: 1PM Polyethylene Glycol 3350 (Miralax) 17 GRAM/DOSE POWDER 1 Packet ORAL DAILY as needed for CONSTIPATION Qty = 30 Comments: NOT GIVEN IN HOSPITAL Sennosides/Docusate Sodium (Senna-Time S Tablet) 8.6 MG-50 MG TABLET 1 Tablet ORAL AT BEDTIME Qty = 30 Comments: Last Taken: 02/19/17 Time: 9PM Oxybutynin Chloride (Oxybutynin Chloride ER) 15 MG TAB.ER.24 1 Tablet ORAL DAILY Qty = 30 Comments: Last Taken: 02/20/17 Time: 9AM Hydrocortisone (Hydrocortisone) 10 MG TABLET 2 Tablet ORAL DAILY Qty = 90 Hydrocortisone (Hydrocortisone) 10 MG TABLET 1 Tablet ORAL Every night Start taking the following new medications: Ondansetron (Zofran Odt) 4 MG TAB.RAPDIS 1 Tablet SUBLINGUAL THREE TIMES DAILY as needed for Nausea and vomitting Qty = 10 No Refills Copies To: Aleida Banks DO; Felicia ZAVALETA,Dheeraj Hull; Mauri ZAVALETA,Dipika 1 Tablet ORAL AT BEDTIME Qty = 30 Comments: Last Taken: 02/19/17 Time: 9PM Oxybutynin Chloride (Oxybutynin Chloride ER) 15 MG TAB.ER.24 1 Tablet ORAL DAILY Qty = 30 Comments: Last Taken: 02/20/17 Time: 9AM Hydrocortisone (Hydrocortisone) 10 MG TABLET 2 Tablet ORAL DAILY Qty = 90 Hydrocortisone (Hydrocortisone) 10 MG TABLET 1 Tablet ORAL Every night Start taking the following new medications: Ondansetron (Zofran Odt) 4 MG TAB.RAPDIS 1 Tablet SUBLINGUAL THREE TIMES DAILY as needed for Nausea and vomitting Qty = 10 No Refills Copies To: Aleida Banks DO; Felicia ZAVALETA,Dheeraj Hull; Mauri ZAVALETA,Dipika
== END 2017-05-12 15:51 ==
LOC: ERH 09:35 → ERHI 16:02 → 2NB 16:02 → ENRESERV 20:28 → ENTRNSPT 20:55 → EDTRNSPT 21:12 → EDTRNSPTSTS 21:12 → 2NB 21:29 → CMPTRNSPT 21:31 → 2NB 05-11 10:48 → ENTRNSPT 05-12 15:41 → EDTRNSPT 05-12 15:47 → EDTRNSPTSTS 05-12 15:47 → 2NB 05-12 15:51 → CMPTRNSPT 05-12 15:58
PROVIDERS: Physician Assistant Medical
DX: K52.9 Noninfective gastroenteritis and colitis, unspecified (principal); I48.0 Paroxysmal atrial fibrillation; E23.0 Hypopituitarism; E27.1 Primary adrenocortical insufficiency; D64.9 Anemia, unspecified; I25.10 Atherosclerotic heart disease of native coronary artery without angina pectoris; J44.9 Chronic obstructive pulmonary disease, unspecified; F17.200 Nicotine dependence, unspecified, uncomplicated; M54.9 Dorsalgia, unspecified; J43.9 Emphysema, unspecified; F41.9 Anxiety disorder, unspecified; E03.9 Hypothyroidism, unspecified
CPT/HCPCS: 1263; 36415; 36592; 74176; 81001; 82436; 93005; 93010; 96372; 96374; 96375; 96376; G0378; J0131; J1650; J1720; J2270; J2405; J2765; J3490; J7042

== ENCOUNTER 2017-06-29 11:06 | Emergency (ER) | payer OTHER ==
[~2017-06-29] VITALS: Ht 170.2 cm; Wt 86.2 kg
[~2017-06-29 11:06] MED LIST changes: +ZOFRAN ODT4 M1 SL
--- NOTE | 2017-06-29 15:40 | ED UPPER/LOWER EXTREMITY COMPL ---
History of Present Illness General Chief Complaint: Lower Extremity Injury Stated Complaint: RT HIP PAIN/LOW BACK PAIN/RT LEG PAIN Source: patient, old records Exam Limitations: no limitations Vital Signs & Intake/Output Vital Signs & Intake/Output Vital Signs Date Time Temp Pulse Resp B/P B/P Pulse O2 O2 Flow FiO2 Mean Ox Delivery Rate 06/29 1439 Room Air 06/29 1329 97.7 91 18 103/63 96 Room Air 06/29 1120 97.6 94 18 120/75 94 Room Air Room Air Allergies Coded Allergies: Penicillins (ANAPHYLAXIS 07/21/16) cyanocobalamin (vitamin B12) (CYANOCOBALAMIN) (HIVES 07/21/16) Triage Note: PT TO ED WITH C/O RIGHT HIP AND LOWER BACK AND BACK OF RIGHT LEG S/P FALL LAST WEEK. PT AMBULATORY WITH CANE, GAIT SLOW BUT STABLE. Triage Nurses Notes Reviewed? yes Onset: Gradual Duration: day(s): (4) Timing: recent history Severity: moderate, severe Severity Numbers: 8 Pain/Injury Location: Right: Hip. Method of Injury: unknown Modifying Factors: Improves With: immobilization. Worsens With: movement. HPI: Patient is a 77-year-old female with history of arthritis presenting to the emergency department chief complaint of right hip pain worsening over the past 3 -4 days. Denies any new injury. Positive history of similar pain in the past but reports it just worsened over the past several days. Denies taking anything at home to help with symptoms. Denies any new falls. Denies any urinary incontinence or retention. Sometimes the pain radiates down the right leg. Denies any hematuria dysuria urgency or frequency. No abdominal pain chest pain or shortness of breath. Pain is worse with movement. Pain is also worse with ambulation. (Allyson Dalton) Reconcile Medications Albuterol Sulfate 2.5 MG/3 ML (0.083 %) VIAL.NEB 1 Vial INH/PATI Q4P PRN DYSPNEA (Reported) Diltiazem HCl (Diltiazem 24HR ER) 120 MG CAP.ER.24H 1 CAP PO DAILY HR CONTROL (Reported) Docusate Sodium 100 MG CAPSULE 1 CAP PO DAILY PRN CONSTIPATION Escitalopram Oxalate 5 MG TABLET 1 TAB PO DAILY MENTAL HEALTH (Reported) Ferrous Sulfate 325 MG (65 MG IRON) TABLET 1 TAB PO DAILY Iron Deficiency Fluticasone/Vilanterol (Breo Ellipta 200-25 Mcg INH) 200 MCG-25 MCG/DOSE BLST.W.DEV 1 INH INH DAILY COPD (Reported) Gabapentin (Neurontin) 300 MG CAPSULE 1 CAP PO TID nerve pain (Reported) Hydrocodone/Acetaminophen ([place] 5-325 Tablet) 5 MG-325 MG TABLET 1 TAB PO Q4- 6 PRN PRN pain Hydrocortisone 10 MG TABLET 2 TAB PO DAILY UNKNOWN (Reported) Hydrocortisone 10 MG TABLET 1 TAB PO QPM UNKNOWN (Reported) Ipratropium/Albuterol Sulfate (Combivent Respimat Inhal [place]) 20 MCG-100 MCG/ ACTUATION MIST.INHAL 1 PUFF INH BID COPD (Reported) Levothyroxine Sodium (Synthroid) 112 MCG TABLET 0.112 MG PO DAILY AC HYPOTHYROIDISM Melatonin 3 MG TABLET 2 TAB PO QPM INSOMNIA (Reported) Meloxicam (Mobic) 15 MG TABLET 1 TAB PO DAILY PRN HIP PAIN Mirabegron (Myrbetriq) 25 MG TAB.ER.24H 1 TAB PO DAILY BLADDER (Reported) Omeprazole 20 MG CAPSULE.DR 40 MG PO BID Upper GI Ulcer From 10/26-11/04 - take this twice per day. From 11/05, take daily. Oxybutynin Chloride (Oxybutynin Chloride ER) 15 MG TAB.ER.24 1 TAB PO DAILY BLADDER (Reported) Oxycodone HCl/Acetaminophen (Percocet 5-325 MG Tablet) 5 MG-325 MG TABLET 1 TAB PO TID PRN PAIN Polyethylene Glycol 3350 (Miralax) 17 GRAM/DOSE POWDER 1 PAC PO DAILY PRN CONSTIPATION Sennosides/Docusate Sodium (Senna-Time S Tablet) 8.6 MG-50 MG TABLET 1 TAB PO AT BEDTIME CONSTIPATION Trazodone HCl 50 MG TABLET 1 TAB PO QPM SLEEP (Reported) (Amari Manrique MD) Past History Travel History Traveled to [place] past 21 day No Medical History Any Pertinent Medical History? 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 No (Allyson Dalton) Review of Systems Review of Systems Constitutional: Reports: no symptoms. Comments Review of systems: See HPI, All other systems negative. Constitutional, no chills fever or weight loss HEENT: No visual changes no sore throat no congestion Cardiovascular: No chest pain ,palpitation , orthopnea or ankle swelling Skin, no jaundice no rashes Respiratory: No dyspnea cough sputum or hemoptysis GI: No nausea no vomiting : No dysuria No hematuria Muscle skeletal: no back pain, no neck pain, Neurologic: No numbness no confusion Psych: No stress anxiety or depression,. Heme/endocrine: No bruising no bleeding no polyuria or polydipsia Immunology: No splenectomy or history of AIDS (Allyson Dalton) Physical Exam Physical Exam General Appearance: well developed/nourished, no apparent distress, alert, awake , comfortable Comments: Well-developed well-nourished person in no acute distress HEENT: Eduardo, normocephalic Neck: Normal inspection, no C-spine tenderness. Back: Tender to palpation over the right lumbar paraspinal muscles. No bony tenderness along the lumbar thoracic or cervical spine. Respiratory: No respiratory distress. Extremity: No edema, no calf tenderness to palpation, normal and equal pulses. Tender to palpation over the right hip, limited range of motion of right lower extremities secondary to pain in the hip. Pain in approximately 25 of right straight leg raise. Full range of motion of right foot, right ankle without difficulty or pain. Nontender palpation on the right knee. Full range motion of upper extremities without difficulty or pain. Forage motion of left lower extremity without difficulty or pain. No crepitus palpated over the right hip. Neuro: Alert oriented x3, motor sensory normal Skin: No appreciable rash on exposed skin, skin is warm and dry. Psych: Mood and affect is normal, memory and judgment is normal. (Roshni CAMPBELL,Allyson) Progress Differential Diagnosis: contusion, dislocation, fracture, sprain, tendon injury Plan of Care: Orders Procedure Date/time Status XRY-HIP 2-3 VIEWS, RIGHT 06/30 1539 Active Diagnostic Imaging: Viewed by Me: Radiology Read. Discussed w/RAD: Radiology Read. Radiology Impression: PATIENT: JON CRISTINA PRESENT AGE: 77 PATIENT ACCOUNT NO: [id number] : 40 LOCATION: [facility] ORDERING PHYSICIAN: Allyson CAMPBELL SERVICE DATE: 06/29/17 EXAM TYPE: RAD - XRY-HIP 2-3 VIEWS, RIGHT EXAMINATION: XR HIP, RIGHT CLINICAL INFORMATION: Pain. Evaluate for fracture. COMPARISON: Right hip radiographs 03/2013. TECHNIQUE: An AP view the pelvis was obtained. 2 additional views of the right hip were obtained. FINDINGS: There is degenerative joint space narrowing of the right hip with associated sclerotic subchondral changes within the acetabular roof. A hypertrophic osteophyte collar surrounding the femoral head is noted. No acute fracture. No dislocation. The pelvic ring is grossly intact. Visualized bowel gas pattern is normal. 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 No evidence of acute fracture and no dislocation. DICTATED BY: Jalil Chen MD DATE/TIME DICTATED:1614 DRYING MACHINE RECEIVER:ANA DATE/TIME TRANSCRIBED:06/29/171614 CONFIDENTIAL, DO NOT COPY WITHOUT APPROPRIATE AUTHORIZATION. <Electronically signed in Other Vendor System> SIGNED BY: Jalil Chen MD 06/29/17 3402 (Allyson Dalton) Departure Departure Time of Disposition: 1640 Disposition: HOME OR SELF CARE Condition: Stable Clinical Impression Primary Impression: Arthritis Referrals: Aleida Banks DO (PCP/Family) Additional Instructions: Follow-up with your primary care physician in the next 5-7 days, make appointment. Rest ice and elevate affected extremity. Take Mobic as prescribed with pain and inflammation. Return for worsening symptoms or concerns. Departure Forms: Customer Survey General Discharge Information Prescriptions: Current Visit Scripts Meloxicam (Mobic) 1 TAB PO DAILY PRN HIP PAIN #10 TAB (Allyson Dalton) PA/CLINICAL DATA MANAGEMENT MANAGER Co-Sign Statement Statement: ED Attending supervision documentation- x I saw and evaluated the patient. I have also reviewed all the pertinent lab results and diagnostic results. I agree with the findings and the plan of care as documented in the PA's/CLINICAL DATA MANAGEMENT MANAGER's documentation. [] I have reviewed the ED Record and agree with the PA's/CLINICAL DATA MANAGEMENT MANAGER's documentation. [] Additions or exceptions (if any) to the PAs/CLINICAL DATA MANAGEMENT MANAGER's note and plan are summarized below: [] (Hilaria ZAVALETA,Amari)
--- NOTE | 2017-06-29 16:22 | RADIOLOGY REPORT ---
EXAMINATION: XR HIP, RIGHT CLINICAL INFORMATION: Pain. Evaluate for fracture. COMPARISON: Right hip radiographs 09/10/2013. TECHNIQUE: An AP view the pelvis was obtained. 2 additional views of the right hip were obtained. FINDINGS: There is degenerative joint space narrowing of the right hip with associated sclerotic subchondral changes within the acetabular roof. A hypertrophic osteophyte collar surrounding the femoral head is noted. No acute fracture. No dislocation. The pelvic ring is grossly intact. Visualized bowel gas pattern is normal. 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 No evidence of acute fracture and no dislocation.
[2017-06-29] MEDS ORDERED: MOBIC15 M1 PO (16:41)
[2017-06-29 17:05] VITALS: BP 118/74
== END 2017-06-29 17:18 ==
LOC: ERH 11:06
DX: M19.90 Unspecified osteoarthritis, unspecified site (principal)
CPT/HCPCS: 73502-RT

== ENCOUNTER 2017-07-11 11:19 | Emergency (ER) | payer OTHER ==
[~2017-07-11] VITALS: Ht 170.2 cm; Wt 83.9 kg
[~2017-07-11 11:19] MED LIST changes: +MOBIC15 M1 PO
[2017-07-11 12:54] LABS: ABSOLUTE BASOPHIL COUNT 0.1 /CUMM (0.0-0.2); ABSOLUTE EOSINOPHIL COUNT 0.1 /CUMM (0.0-0.7); ABSOLUTE GRANULOCYTE CT 4.5 /CUMM (1.4-6.5); ABSOLUTE LYMPH COUNT 1.5 /CUMM (1.2-3.4); ABSOLUTE MONOCYTE COUNT 0.6 /CUMM (0.10-0.60); BASOPHIL % 1.1 % (0.0-2.0); EOSINOPHIL % 1.7 % (0-5); GRANULOCYTE % 67.2 % (42.2-75.2); HEMATOCRIT 35.9 % (37-47); MEAN CORPUSCULAR HGB 25.2 PG (27.0-31.0); MEAN CORPUSCULAR HGB CONC 33.7 G/DL (33.0-37.0); MEAN CORPUSCULAR VOLUME 74.7 FL (81.0-99.0); MEAN PLATELET VOLUME 9.3 FL (7.4-10.4); PLATELET COUNT 170 /CUMM (130-400); RBC DISTRIBUTION WIDTH 14.3 % (11.5-14.5); WHITE BLOOD CELL COUNT 6.7 /CUMM (4.8-10.8)
--- NOTE | 2017-07-11 14:06 | ED GENERAL ADULT ---
History of Present Illness General Chief Complaint: General Adult Stated Complaint: ?LOW BP Source: patient Exam Limitations: no limitations Vital Signs & Intake/Output Vital Signs & Intake/Output Vital Signs Date Time Temp Pulse Resp B/P B/P Pulse O2 O2 Flow FiO2 Mean Ox Delivery Rate 07/11 1409 97.8 74 18 125/74 97 Room Air 07/11 1242 96 Room Air 07/11 1220 124/60 07/11 1122 98.0 96 18 94/60 94 Room Air Allergies Coded Allergies: Penicillins (ANAPHYLAXIS 07/21/16) cyanocobalamin (vitamin B12) (CYANOCOBALAMIN) (HIVES 07/21/16) Reconcile Medications Albuterol Sulfate 2.5 MG/3 ML (0.083 %) VIAL.NEB 1 Vial INH/PATI Q4P PRN DYSPNEA (Reported) Diltiazem HCl (Diltiazem 24HR ER) 120 MG CAP.ER.24H 1 CAP PO DAILY HR CONTROL (Reported) Docusate Sodium 100 MG CAPSULE 1 CAP PO DAILY PRN CONSTIPATION Escitalopram Oxalate 5 MG TABLET 1 TAB PO DAILY MENTAL HEALTH (Reported) Ferrous Sulfate 325 MG (65 MG IRON) TABLET 1 TAB PO DAILY Iron Deficiency Fluticasone/Vilanterol (Breo Ellipta 200-25 Mcg INH) 200 MCG-25 MCG/DOSE BLST.W.DEV 1 INH INH DAILY COPD (Reported) Gabapentin (Neurontin) 300 MG CAPSULE 1 CAP PO TID nerve pain (Reported) Hydrocodone/Acetaminophen ([place] 5-325 Tablet) 5 MG-325 MG TABLET 1 TAB PO Q4- 6 PRN PRN pain Hydrocortisone 10 MG TABLET 2 TAB PO DAILY UNKNOWN (Reported) Hydrocortisone 10 MG TABLET 1 TAB PO QPM UNKNOWN (Reported) Ipratropium/Albuterol Sulfate (Combivent Respimat Inhal [place]) 20 MCG-100 MCG/ ACTUATION MIST.INHAL 1 PUFF INH BID COPD (Reported) Levothyroxine Sodium (Synthroid) 112 MCG TABLET 0.112 MG PO DAILY AC HYPOTHYROIDISM Melatonin 3 MG TABLET 2 TAB PO QPM INSOMNIA (Reported) Meloxicam (Mobic) 15 MG TABLET 1 TAB PO DAILY PRN HIP PAIN Mirabegron (Myrbetriq) 25 MG TAB.ER.24H 1 TAB PO DAILY BLADDER (Reported) Omeprazole 20 MG CAPSULE.DR 40 MG PO BID Upper GI Ulcer From 10/26-11/04 - take this twice per day. From 11/05, take daily. Oxybutynin Chloride (Oxybutynin Chloride ER) 15 MG TAB.ER.24 1 TAB PO DAILY BLADDER (Reported) Oxycodone HCl/Acetaminophen (Percocet 5-325 MG Tablet) 5 MG-325 MG TABLET 1 TAB PO TID PRN PAIN Polyethylene Glycol 3350 (Miralax) 17 GRAM/DOSE POWDER 1 PAC PO DAILY PRN CONSTIPATION Sennosides/Docusate Sodium (Senna-Time S Tablet) 8.6 MG-50 MG TABLET 1 TAB PO AT BEDTIME CONSTIPATION Trazodone HCl 50 MG TABLET 1 TAB PO QPM SLEEP (Reported) Triage Note: 77 YO FEMALE TO TRIAGE FROM [facility]. PT REPORTS SHE FEELS "WORN OUT" AND HAD HER BP CHECKED AND IT WAS LOW (90s/50s). BP 94/60 AT THIS TIME. PT REPORTS SHE HAS BEEN EATING/DRINKING NORMALLY. DENIES ANY PAIN. Triage Nurses Notes Reviewed? yes Onset: Abrupt Duration: day(s):, constant Timing: recent history Injury Environment: home No Modifying Factors: none HPI: 77-year-old female comes into the emergency room because she feels generally weak. She reports that she was at the [facility] and they told her that her blood pressure was low and she should come in to be evaluated. She denies any pain. Denies any fever chills vomiting. Denies any other associated symptoms. (Rod Cartwright) Past History Travel History Traveled to [place] past 21 day No Medical History Any Pertinent Medical History? 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 No (Rod Cartwright) Review of Systems Review of Systems Constitutional: Reports: see HPI. EENTM: Reports: no symptoms. Respiratory: Reports: no symptoms. Cardiovascular: Reports: no symptoms. GI: Reports: no symptoms. Genitourinary: Reports: no symptoms. Musculoskeletal: Reports: no symptoms. Skin: Reports: no symptoms. Neurological/Psychological: Reports: no symptoms. Hematologic/Endocrine: Reports: no symptoms. Immunologic/Allergic: Reports: no symptoms. All Other Systems: Reviewed and Negative (Rod Cartwright) Physical Exam Physical Exam General Appearance: well developed/nourished, alert, awake Head: atraumatic, normal appearance Eyes: Bilateral: normal appearance. Ears, Nose, Throat: normal ENT inspection, hearing grossly normal Neck: normal inspection Respiratory: normal breath sounds, no respiratory distress Back: normal inspection Extremities: normal inspection Neurologic/Psych: awake, alert, oriented x 3 Skin: intact, normal color Core Measures ACS in differential dx? No CVA/TIA Diagnosis: No Sepsis Present: No Sepsis Focused Exam Completed? No (Rod Cartwright) Progress Differential Diagnoses I considered the following diagnoses in my evaluation of the patient: sepsis, orthostatic hypotnesion, dehydration, anemia Plan of Care: Orders Procedure Date/time Status MISTAKE 07/11 1150 Active TROPONIN LEVEL 07/11 1148 Complete COMPREHENSIVE METABOLIC PANEL 07/11 1148 Complete CBC WITHOUT DIFFERENTIAL 07/11 1148 Complete EKG 07/11 1148 Active Laboratory Tests 07/11/17 1243: Anion Gap 9, Estimated GFR > 60, BUN/Creatinine Ratio 18.8, Glucose 86, Calcium 8.9, Total Bilirubin 0.7, AST 26, ALT 44, Alkaline Phosphatase 129 H, Troponin I < 0.01, Total Protein 6.1 L, Albumin 3.5, Globulin 2.6, Albumin/Globulin Ratio 1.3, CBC w Diff NO MAN DIFF REQ, RBC 4.80, MCV 74.7 L, MCH 25.2 L, MCHC 33.7, RDW 14.3, MPV 9.3, Gran % 67.2, Lymphocytes % 21.7, Monocytes % 8.3, Eosinophils % 1.7, Basophils % 1.1, Absolute Granulocytes 4.5, Absolute Lymphocytes 1.5, Absolute Monocytes 0.6, Absolute Eosinophils 0.1, Absolute Basophils 0.1 Initial ED EKG: normal sinus rhythm, rate (91), nonspecific ST T wave chg (Rod Cartwright) Departure Departure Disposition: HOME OR SELF CARE Condition: Stable Clinical Impression Primary Impression: Weakness Referrals: Aleida Banks DO (PCP/Family) Additional Instructions: Follow-up with her primary care doctor. Return if any concerns worsening symptoms. Please go over all results of today's visit with your primary care doctor. Contact your primary care doctor to let them know you were here in the emergency room. There may be nonspecific findings which may not be related to your visit today here in the emergency room but may require further evaluation and chronic monitoring by your primary care doctor. If you had a laceration today the chance of foreign body always remains. You should follow-up with your primary care doctor for recheck in 3-5 days for a wound check. If you had an x-ray done there is a chance that a fracture could have been missed on initial read and you should follow-up with your primary care doctor for repeat x-rays if symptoms persist. If your blood pressure was elevated here in the emergency room please have rechecked by [facility] primary care doctor within the next 48. If you were prescribed a narcotic here in the emergency room or any type of controlled substances you're not allowed to drive while taking this medication or operate any type of heavy machinery. Narcotics can make you feel lightheaded dizziness nausea and can cause constipation. 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 Thank you for choosing [facility] emergency room. Please return to the emergency room immediately if you have any other concerns worsening of symptoms. Departure Forms: Customer Survey General Discharge Information Comments 07/11/2017 2:23:29 PM patient clinically looks well. Patient is no apparent distress. Patient has been seen here many times in the past for the same. Blood pressure is normal. She is able to ambulate with no difficulty. Safe for discharge at this time. (Rod Cartwright) PA/DISP[facility] STRE[facility] DEPARTMENT Co-Sign Statement Statement: ED Attending supervision documentation- [X] I saw and evaluated the patient. I have also reviewed all the pertinent lab results and diagnostic results. I agree with the findings and the plan of care as documented in the PA's/DISP[facility] DEPARTMENT's documentation. Patient presents for evaluation from an ECF for low blood pressure. Physical examination reveals an alert and conversant woman with a nonfocal neurologic examination. Mucosa appears somewhat dry. [] I have reviewed the ED Record and agree with the PA's/DISP[facility] DEPARTMENT's documentation. [] Additions or exceptions (if any) to the PAs/DISP[facility] DEPARTMENT's note and plan are summarized below: [] (Risa ZAVALETA,Shivam Rojas) Critical Care Note Critical Care Note Critical Care Time: non-applicable (Rod Cartwright)
[2017-07-11 14:09] VITALS: BP 125/74
== END 2017-07-11 14:15 ==
LOC: ERH 11:19
PROVIDERS: Physician Assistant Medical
DX: R53.1 Weakness (principal)
CPT/HCPCS: 93005; 93010

== ENCOUNTER 2017-07-18 10:17 | Emergency (ER) | payer OTHER ==
[2017-07-18 10:36] VITALS: BP 113/70
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
--- NOTE | 2017-07-18 12:06 | RADIOLOGY REPORT ---
EXAMINATION: XR RIBS, RIGHT XR CHEST CLINICAL INFORMATION: Back and right rib pain. COMPARISON: Previous chest x-ray and chest CT November 2015. TECHNIQUE: 1 view of the chest and 3 views of the right ribs. FINDINGS: The cardiac and mediastinal contours are stable. There is an air-fluid level projecting over the heart, probably representing an esophageal hernia. The lungs are clear. There is no pleural effusion or pneumothorax. There is evidence of right anterior 5th and 6th rib fractures that do not appear acute. There is evidence of a right posterior 10th rib fracture that does not appear acute. There are right anterior 10th and 11th rib fractures that appear more recent. There are right and anterior lateral 8th and 9th rib fractures that may be more recent as well. There is evidence of previous surgery to both shoulders. There is uncertain alignment at the left shoulder joint. This could be better evaluated with dedicated shoulder x-ray if clinically indicated. IMPRESSION: No acute fracture is seen. Right anterior 10th and 11th and right anterior lateral 8th and 9th rib fractures that may be subacute or healing. Several old-appearing right rib fractures. Small esophageal hernia, otherwise unremarkable chest x-ray. Evidence of previous surgery to both shoulder joints. Question abnormal alignment at the left shoulder. This could be better evaluated with left shoulder x-ray if clinically indicated.
[2017-07-18 12:44] LABS: ABSOLUTE BASOPHIL COUNT 0 /CUMM (0.0-0.2); ABSOLUTE EOSINOPHIL COUNT 0.1 /CUMM (0.0-0.7); ABSOLUTE MONOCYTE COUNT 0.5 /CUMM (0.10-0.60); BASOPHIL % 0.7 % (0.0-2.0); GRANULOCYTE % 60.1 % (42.2-75.2); HEMATOCRIT 32.6 % (37-47); MEAN CORPUSCULAR HGB CONC 33.3 G/DL (33.0-37.0); MEAN CORPUSCULAR VOLUME 75.1 FL (81.0-99.0); MEAN PLATELET VOLUME 9.3 FL (7.4-10.4); PLATELET COUNT 187 /CUMM (130-400); RBC DISTRIBUTION WIDTH 14.6 % (11.5-14.5); RED BLOOD CELL CT 4.34 /CUMM (4.20-5.40); WHITE BLOOD CELL COUNT 6.7 /CUMM (4.8-10.8)
--- NOTE | 2017-07-18 14:59 | CT SCAN REPORT ---
EXAMINATION: CT CHEST, ABDOMEN AND PELVIS WITH CONTRAST CLINICAL INFORMATION: Tender to palpation status post fall. Presumptive diagnosis of right lower rib fracture. Right upper quadrant tender to palpation status post fall. Presumptive diagnosis of liver laceration. COMPARISON: CT scan of the abdomen and pelvis dated 05/10/2017 and 01/06/2017. CTA of the chest dated 05/04/2016. TECHNIQUE: Multidetector CT helical images of the chest, abdomen and pelvis were performed following the administration of 95 mL of intravenous Optiray 320. The data set was reformatted in the coronal and sagittal planes and reviewed on an independent workstation. DLP: 526.61 mGy-cm. FINDINGS: Evaluation is limited due to extensive beam hardening artifact related to bilateral total shoulder arthroplasties. CHEST: LUNGS: Moderate emphysema and biapical pleural-based reticular nodular areas of scarring again seen, unchanged. There is a subtle area of tree-in-bud type nodular opacities seen laterally in the right lung apex (series 4, image 104 through 110), consistent with airway associated inflammatory changes. Tiny calcified granuloma seen in the right upper lobe (series 4, image 141). No effusion or pneumothorax is seen. Central airways are patent. LYMPHOVASCULAR STRUCTURES: Aortic size is normal. Prominence of the left atrial and left ventricular chambers is seen. Mild atherosclerotic calcification of the coronary arteries is noted. No pericardial effusion is seen. As noted on the 05/04/2016 exam, slight prominence of the right hilar lymph node is seen, measuring up to 1.2 cm in short axis (series 4, image 208), similar to the previous exam. Other scattered subcentimeter sized left hilar and mediastinal lymph nodes are also noted. No significant axillary adenopathy is present. THYROID GLAND: Diffusely atrophic and poorly visualized. BONES: Diffuse osteopenia with minimal degenerative spondylosis in lower thoracic spine. No definite rib fracture or chest wall hematoma is seen. There is slight deformity of the lateral right eighth rib (series 2, image 41), unchanged from prior exam, consistent with an old healed fracture deformity. No suspicious focal finding. ABDOMEN AND PELVIS: LIVER, GALLBLADDER, BILIARY TREE: Liver normal size and attenuation. No focal cystic or solid mass or intra-or extrahepatic ductal dilatation. No evidence of hepatic laceration or subcapsular hematoma. Hepatic and portal veins patent. The gallbladder partially distended and within normal limits. PANCREAS: Normal. No ductal dilatation, mass, or surrounding stranding. SPLEEN: Normal size and appearance. Splenic vein patent. ADRENAL GLANDS AND KIDNEYS: Adrenal glands normal. Kidneys bilaterally symmetric in size and function. No focal mass, hydronephrosis, nephrolithiasis or perinephric stranding. URETERS AND BLADDER: Ureters decompressed and within normal limits. Bladder partially distended and within normal limits. PELVIC VISCERA: The patient is status post hysterectomy and presumably oophorectomy. No suspicious adnexal mass. BOWEL LOOPS: There is a small retrocardiac hiatal hernia, containing portions of the gastric fundus. Moderate sigmoid colonic diverticulosis with no evidence of acute diverticulitis. Other scattered colonic diverticula are also seen. Small and large bowel loops decompressed. Appendix is not seen. ABDOMINAL WALL: There is a tiny fat-containing umbilical hernia. LYMPHOVASCULAR STRUCTURES: Abdominal aorta normal in caliber. No periaortic collections. No abdominal or pelvic adenopathy or free fluid collection. BONES: Diffuse osteopenia and multilevel moderate degenerative disc disease throughout the lumbar spine. Grade 1 retrolistheses of L1 on L2 is seen. Moderate facet arthropathy is noted in the lower lumbar spine. No suspicious bone findings. IMPRESSION: 1. No evidence of right rib fracture or chest wall hematoma. 2. No evidence of traumatic hepatic injury. 3. Moderate emphysema with biapical areas of scarring and small area of peripheral small airway inflammatory changes. 4. Stable slight prominence of a right hilar lymph node. 5. Small retrocardiac hiatal hernia, moderate sigmoid diverticulosis and tiny fat-containing umbilical hernia is seen.
--- NOTE | 2017-07-18 15:10 | CT SCAN REPORT ---
EXAMINATION: CT ABDOMEN AND PELVIS WITH CONTRAST CLINICAL INFORMATION: Right upper quadrant tender to palpation after a fall. Evaluate for liver laceration. COMPARISON: Previous CT of the abdomen and pelvis, most recent April 2017. TECHNIQUE: Multidetector volumetric imaging was performed of the abdomen and pelvis following IV administration of 95 mL of Optiray 320 intravenous contrast. Sagittal and coronal reformatted images were obtained on the technologist's workstation. DLP: 527 mGy-cm. FINDINGS: LIVER, GALLBLADDER, AND BILIARY TREE: The liver is normal in size, shape, and attenuation. No focal hepatic lesion or biliary ductal dilatation is present. The gallbladder is unremarkable with no evidence of radiopaque gallstones, gallbladder wall thickening, or obvious pericholecystic inflammatory changes. PANCREAS: Unremarkable. SPLEEN: There is a small 5 mm low-attenuation lesion in the superior spleen. This is similar to previous contrast-enhanced exams October 2016 and probably benign. The spleen is otherwise unremarkable. ADRENAL GLANDS: Unremarkable. KIDNEYS AND URETERS: The kidneys are normal in size, shape, and attenuation. No hydronephrosis, hydroureter, or calculi seen. No perinephric stranding. BLADDER: Not optimally distended but appears unremarkable. GASTROINTESTINAL TRACT: There is evidence of diverticulosis of the distal colon. Small and large bowel is otherwise unremarkable. There is a small esophageal hernia. ABDOMINAL WALL: No significant hernia is appreciated. LYMPH NODES: There is no ascites. There are no enlarged lymph nodes. There is no evidence of free air. VASCULAR: There is evidence of atherosclerotic disease. PELVIC VISCERA: The uterus appears to have been removed. No pelvic mass is seen. OSSEOUS STRUCTURES: There are degenerative changes of the spine and at the right hip joint. No fracture is seen. IMPRESSION: Diverticulosis. Esophageal hernia.
== END 2017-07-18 15:21 ==
LOC: ERH 10:17
PROVIDERS: Student in an Organized Health Care Education/Training Program
DX: S20.211A Contusion of right front wall of thorax, initial encounter (principal); M54.9 Dorsalgia, unspecified; J44.9 Chronic obstructive pulmonary disease, unspecified; W01.0XXA Fall on same level from slipping, tripping and stumbling without subsequent striking against object, initial encounter; Y93.01 Activity, walking, marching and hiking; Y92.009 Unspecified place in unspecified non-institutional (private) residence as the place of occurrence of the external cause
CPT/HCPCS: 71100-RT; 74177

== ENCOUNTER 2017-08-08 09:09 | Emergency (ER) | payer OTHER ==
[~2017-08-08] VITALS: Ht 170.2 cm; Wt 83.9 kg
[2017-08-08 09:15] VITALS: BP 93/56
--- NOTE | 2017-08-08 09:57 | ED DYSPNEA/ASTHMA COMPLAINT ---
History of Present Illness General Chief Complaint: Upper Respiratory Sx/Fever Stated Complaint: COUGH, X 3 DAYS Source: patient, old records Exam Limitations: no limitations Vital Signs & Intake/Output Vital Signs & Intake/Output Vital Signs Date Time Temp Pulse Resp B/P B/P Pulse O2 O2 Flow FiO2 Mean Ox Delivery Rate 08/08 1000 99 08/08 0915 98.6 106 20 93/56 93 Room Air Allergies Coded Allergies: Penicillins (ANAPHYLAXIS 07/21/16) cyanocobalamin (vitamin B12) (CYANOCOBALAMIN) (HIVES 07/21/16) Reconcile Medications Albuterol Sulfate 2.5 MG/3 ML (0.083 %) VIAL.NEB 1 Vial INH/PATI Q4P PRN DYSPNEA (Reported) Codeine Phosphate/Guaifenesi (Cheratussin AC Syrup) 10 MG-100 MG/5 ML LIQUID 10 ML PO Q6P PRN COUGH Diltiazem HCl (Diltiazem 24HR ER) 120 MG CAP.ER.24H 1 CAP PO DAILY HR CONTROL (Reported) Docusate Sodium 100 MG CAPSULE 1 CAP PO DAILY PRN CONSTIPATION Escitalopram Oxalate 5 MG TABLET 1 TAB PO DAILY MENTAL HEALTH (Reported) Ferrous Sulfate 325 MG (65 MG IRON) TABLET 1 TAB PO DAILY Iron Deficiency Fluticasone/Vilanterol (Breo Ellipta 200-25 Mcg INH) 200 MCG-25 MCG/DOSE BLST.W.DEV 1 INH INH DAILY COPD (Reported) Gabapentin (Neurontin) 300 MG CAPSULE 1 CAP PO TID nerve pain (Reported) Hydrocodone/Acetaminophen ([place] 5-325 Tablet) 5 MG-325 MG TABLET 1 TAB PO Q4- 6 PRN PRN pain Hydrocortisone 10 MG TABLET 2 TAB PO DAILY UNKNOWN (Reported) Hydrocortisone 10 MG TABLET 1 TAB PO QPM UNKNOWN (Reported) Ipratropium/Albuterol Sulfate (Combivent Respimat Inhal [place]) 20 MCG-100 MCG/ ACTUATION MIST.INHAL 1 PUFF INH BID COPD (Reported) Levothyroxine Sodium (Synthroid) 112 MCG TABLET 0.112 MG PO DAILY AC HYPOTHYROIDISM Melatonin 3 MG TABLET 2 TAB PO QPM INSOMNIA (Reported) Meloxicam (Mobic) 15 MG TABLET 1 TAB PO DAILY PRN HIP PAIN Mirabegron (Myrbetriq) 25 MG TAB.ER.24H 1 TAB PO DAILY BLADDER (Reported) Omeprazole 20 MG CAPSULE.DR 40 MG PO BID Upper GI Ulcer From 10/26-11/04 - take this twice per day. From 11/05, take daily. Oxybutynin Chloride (Oxybutynin Chloride ER) 15 MG TAB.ER.24 1 TAB PO DAILY BLADDER (Reported) Oxycodone HCl/Acetaminophen (Percocet 5-325 MG Tablet) 5 MG-325 MG TABLET 1 TAB PO TID PRN PAIN Polyethylene Glycol 3350 (Miralax) 17 GRAM/DOSE POWDER 1 PAC PO DAILY PRN CONSTIPATION Sennosides/Docusate Sodium (Senna-Time S Tablet) 8.6 MG-50 MG TABLET 1 TAB PO AT BEDTIME CONSTIPATION Trazodone HCl 50 MG TABLET 1 TAB PO QPM SLEEP (Reported) Triage Note: PT TO ED C/O NON PRODUCTIVE COUGH X A FEW DAYS. Triage Nurses Notes Reviewed? yes HPI: Patient presents with three-day history of a nonproductive cough. No fevers or chills. No chest pain or chest tightness. No dyspnea on exertion. No orthopnea. No anorexia. Past History Travel History Traveled to [place] past 21 day No Medical History Any Pertinent Medical History? 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 No Review of Systems Review of Systems Constitutional: Reports: no symptoms. EENTM: Reports: no symptoms. Respiratory: Reports: see HPI, cough. Cardiovascular: Reports: no symptoms. GI: Reports: no symptoms. Genitourinary: Reports: no symptoms. Musculoskeletal: Reports: no symptoms. Skin: Reports: no symptoms. Neurological/Psychological: Reports: no symptoms. Hematologic/Endocrine: Reports: no symptoms. Immunologic/Allergic: Reports: no symptoms. All Other Systems: Reviewed and Negative Physical Exam Physical Exam General Appearance: well developed/nourished, alert, awake, anxious, mild distress Head: atraumatic, normal appearance Eyes: Bilateral: PERRL, EOMI. Ears, Nose, Throat: normal pharynx, normal ENT inspection, hearing grossly normal Neck: normal inspection, supple, full range of motion Respiratory: rhonchi, wheezing Cardiovascular: regular rate/rhythm, normal peripheral pulses Gastrointestinal: normal bowel sounds, soft, non-tender, no organomegaly Extremities: normal inspection, normal capillary refill, normal range of motion, no edema Neurologic/Psych: no motor/sensory deficits, awake, alert, oriented x 3, normal gait, normal mood/affect Skin: intact, normal color, warm/dry Lymphatic: no anterior cervical kelly Core Measures ACS in differential dx? No CVA/TIA Diagnosis No Sepsis Present: No Sepsis Focused Exam Completed? No Progress Differential Diagnosis: bronchitis, COPD, pneumonia Plan of Care: Orders Procedure Date/time Status AEROSOL (GEN) 08/08 958 Complete Diagnostic Imaging: Viewed by Me: Radiology Read. Discussed w/RAD: Radiology Read. CXR Impression: PATIENT: JON CRISTINA PRESENT AGE : 77 PATIENT ACCOUNT NO: [id number] : 40 LOCATION: [facility] ORDERING PHYSICIAN: Dheeraj Orozco MD SERVICE DATE: 08/08/17- EXAM TYPE: RAD - XRY-CHEST XRAY, TWO VIEWS EXAMINATION: XR CHEST CLINICAL INFORMATION: Cough, fever COMPARISON: CT 07/18/2017 TECHNIQUE: 2 views of the chest were obtained. FINDINGS: Lung volumes are symmetric. No focal consolidation is seen. Biapical scarring is noted. No evidence of pneumothorax, pleural effusion, or pulmonary edema. The cardiomediastinal contour is unremarkable. Bilateral shoulder arthroplasty hardware is noted. IMPRESSION: No focal consolidation identified. DICTATED BY: Keshawn Padron MD DATE/TIME DICTATED:08/08/171056 LUGGER:ANA DATE/TIME TRANSCRIBED:05/29/18 / 1057 CONFIDENTIAL, DO NOT COPY WITHOUT APPROPRIATE AUTHORIZATION. <Electronically signed in Other Vendor System> SIGNED BY: Keshawn Padron MD 08/08/17 1104 Initial ED EKG: none Departure Departure Disposition: HOME OR SELF CARE Condition: Stable Clinical Impression Primary Impression: Bronchitis Referrals: Aleida Banks DO (PCP/Family) Departure Forms: Customer Survey General Discharge Information Prescriptions: Current Visit Scripts Codeine Phosphate/Guaifenesi (Cheratussin AC Syrup) 10 ML PO Q6P PRN COUGH #240 ML Critical Care Note Critical Care Note Critical Care Time: non-applicable
--- NOTE | 2017-08-08 11:04 | RADIOLOGY REPORT ---
EXAMINATION: XR CHEST CLINICAL INFORMATION: Cough, fever COMPARISON: CT 07/18/2017 TECHNIQUE: 2 views of the chest were obtained. FINDINGS: Lung volumes are symmetric. No focal consolidation is seen. Biapical scarring is noted. No evidence of pneumothorax, pleural effusion, or pulmonary edema. The cardiomediastinal contour is unremarkable. Bilateral shoulder arthroplasty hardware is noted. IMPRESSION: No focal consolidation identified.
[2017-08-08] MEDS ORDERED: CHERATUSSIN AC118 M1 PO ×3 (11:14→11:34)
== END 2017-08-08 11:42 ==
LOC: ERH 09:09
DX: J40 Bronchitis, not specified as acute or chronic (principal); Z87.891 Personal history of nicotine dependence
CPT/HCPCS: 71046

== ENCOUNTER 2017-08-25 09:08 | Emergency (ER) | payer OTHER ==
[~2017-08-25] VITALS: Ht 170.2 cm; Wt 78.5 kg
[~2017-08-25 09:08] MED LIST changes: +CHERATUSSIN AC118 M1 PO
[2017-08-25 09:19] VITALS: BP 102/58
--- NOTE | 2017-08-25 09:22 | ED UPPER/LOWER EXTREMITY COMPL ---
History of Present Illness General Chief Complaint: General Adult Stated Complaint: CUT TO FINGER Source: patient Exam Limitations: no limitations Vital Signs & Intake/Output Vital Signs & Intake/Output Vital Signs Date Time Temp Pulse Resp B/P B/P Pulse O2 O2 Flow FiO2 Mean Ox Delivery Rate 08/25 0946 96.3 08/25 0919 96.3 93 18 102/58 95 Room Air Room Air Allergies Coded Allergies: Penicillins (ANAPHYLAXIS 07/21/16) cyanocobalamin (vitamin B12) (CYANOCOBALAMIN) (HIVES 07/21/16) Reconcile Medications Albuterol Sulfate 2.5 MG/3 ML (0.083 %) VIAL.NEB 1 Vial INH/PATI Q4P PRN DYSPNEA (Reported) Codeine Phosphate/Guaifenesi (Cheratussin AC Syrup) 10 MG-100 MG/5 ML LIQUID 10 ML PO Q6P PRN COUGH Diltiazem HCl (Diltiazem 24HR ER) 120 MG CAP.ER.24H 1 CAP PO DAILY HR CONTROL (Reported) Docusate Sodium 100 MG CAPSULE 1 CAP PO DAILY PRN CONSTIPATION Escitalopram Oxalate 5 MG TABLET 1 TAB PO DAILY MENTAL HEALTH (Reported) Ferrous Sulfate 325 MG (65 MG IRON) TABLET 1 TAB PO DAILY Iron Deficiency Fluticasone/Vilanterol (Breo Ellipta 200-25 Mcg INH) 200 MCG-25 MCG/DOSE BLST.W.DEV 1 INH INH DAILY COPD (Reported) Gabapentin (Neurontin) 300 MG CAPSULE 1 CAP PO TID nerve pain (Reported) Hydrocodone/Acetaminophen ([place] 5-325 Tablet) 5 MG-325 MG TABLET 1 TAB PO Q4- 6 PRN PRN pain Hydrocortisone 10 MG TABLET 2 TAB PO DAILY UNKNOWN (Reported) Hydrocortisone 10 MG TABLET 1 TAB PO QPM UNKNOWN (Reported) Ipratropium/Albuterol Sulfate (Combivent Respimat Inhal [place]) 20 MCG-100 MCG/ ACTUATION MIST.INHAL 1 PUFF INH BID COPD (Reported) Levothyroxine Sodium (Synthroid) 112 MCG TABLET 0.112 MG PO DAILY AC HYPOTHYROIDISM Melatonin 3 MG TABLET 2 TAB PO QPM INSOMNIA (Reported) Meloxicam (Mobic) 15 MG TABLET 1 TAB PO DAILY PRN HIP PAIN Mirabegron (Myrbetriq) 25 MG TAB.ER.24H 1 TAB PO DAILY BLADDER (Reported) Omeprazole 20 MG CAPSULE.DR 40 MG PO BID Upper GI Ulcer From 10/26-11/04 - take this twice per day. From 11/05, take daily. Oxybutynin Chloride (Oxybutynin Chloride ER) 15 MG TAB.ER.24 1 TAB PO DAILY BLADDER (Reported) Oxycodone HCl/Acetaminophen (Percocet 5-325 MG Tablet) 5 MG-325 MG TABLET 1 TAB PO TID PRN PAIN Polyethylene Glycol 3350 (Miralax) 17 GRAM/DOSE POWDER 1 PAC PO DAILY PRN CONSTIPATION Sennosides/Docusate Sodium (Senna-Time S Tablet) 8.6 MG-50 MG TABLET 1 TAB PO AT BEDTIME CONSTIPATION Trazodone HCl 50 MG TABLET 1 TAB PO QPM SLEEP (Reported) Triage Nurses Notes Reviewed? yes Onset: Abrupt Duration: constant Timing: single episode today Severity: moderate Severity Numbers: 5 Pain/Injury Location: Right: 2nd finger. Method of Injury: laceration HPI: Patient is a 77-year-old female who presents emergency room stating yesterday patient accidentally struck the right second digit index finger with a sharp piece of glass resulting laceration Tetanus is unknown patient is right-hand dominant bleeding was controlled yesterday Patient complains of 5/10 localized right finger pain (Audi Tabares) Past History Travel History Traveled to [place] past 21 day No Medical History Any Pertinent Medical History? 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 No (Audi Tabares) Review of Systems Review of Systems Constitutional: Reports: no symptoms. EENTM: Reports: no symptoms. Respiratory: Reports: no symptoms. Cardiovascular: Reports: no symptoms. Gastrointestinal/Abdominal: Reports: no symptoms. Genitourinary: Reports: no symptoms. Musculoskeletal: Reports: no symptoms. Skin: Reports: see HPI. Neurological/Psychological: Reports: no symptoms. Hematologic/Endocrine: Reports: no symptoms. Immunological: Reports: no symptoms. All Other Systems: Reviewed and Negative (Audi Tabares) Physical Exam Physical Exam General Appearance: no apparent distress, alert, comfortable Head: atraumatic Eyes: Bilateral: normal appearance. Ears, Nose, Throat: hearing grossly normal Neck: normal inspection Cardiovascular/Respiratory: no respiratory distress Peripheral Pulses: 2+ radial (R) Neurologic/Tendon: normal sensation, normal motor functions, normal tendon functions, responds to pain, no evidence tendon injury, no pulse deficit Skin: normal color Diagram Hands Front 1) 1 CM MILDLY GAPING LINEAR LACERATION WITH full active range of motion of flexion and extension full resisted range of motion with flexion and extension no tendon deficit no exposed bone no exposed tendon no active bleeding (Audi Tabares) Progress Differential Diagnosis: arterial insufficiency, compartment syndrome, contusion, dislocation, DVT, fracture, gout, septic arthritis, sprain, tendon injury Plan of Care: Current Medications Sig/Veronique Start time Last Medication Dose Stop Time Status Admin Tetracaine/ 1 BOT ONCE ONE 08/25 0945 AC Epinephrine/Lidocaine 08/25 0946 (LET Topical) No concerns or tenderness or fracture, using sterile technique a Betadine I then used approximately 3 mL of 1% lidocaine for local anesthesia I applied #3, 5-0 nonabsorbable sutures margins were revised bacitracin bandage was applied patient tolerated well (Audi Tabares) Departure Departure Disposition: HOME OR SELF CARE Condition: Stable Clinical Impression Primary Impression: Laceration of finger of right hand Referrals: Aleida Banks DO (PCP/Family) Additional Instructions: As discussed apply bacitracin to the area once a day for the following 4 days with bandage. If you note signs of infection redness, pain, swelling, discharge return to emergency room. Return to emergency room in 7 days for suture removal Departure Forms: Customer Survey General Discharge Information (Audi Tabares) PA/CIRCUIT BOARD ASSEMBLER Co-Sign Statement Statement: ED Attending supervision documentation- [] I saw and evaluated the patient. I have also reviewed all the pertinent lab results and diagnostic results. I agree with the findings and the plan of care as documented in the PA's/CIRCUIT BOARD ASSEMBLER's documentation. [X] I have reviewed the ED Record and agree with the PA's/CIRCUIT BOARD ASSEMBLER's documentation. [] Additions or exceptions (if any) to the PAs/CIRCUIT BOARD ASSEMBLER's note and plan are summarized below: [] (Pam ZAVALETA,Dheeraj Corey)
== END 2017-08-25 10:20 ==
LOC: ERH 09:08
DX: S61.210A Laceration without foreign body of right index finger without damage to nail, initial encounter (principal); W25.XXXA Contact with sharp glass, initial encounter
CPT/HCPCS: J2001

== ENCOUNTER 2017-09-04 10:11 | Emergency (ER) | payer OTHER ==
[~2017-09-04] VITALS: Ht 170.2 cm; Wt 77.1 kg
--- NOTE | 2017-09-04 10:38 | ED ANIMAL BITE/WOUND CHECK ---
History of Present Illness General Chief Complaint: Suture Removal/Wound Recheck Stated Complaint: SUTURE REMOVAL Source: patient Exam Limitations: poor historian Vital Signs & Intake/Output Vital Signs & Intake/Output Vital Signs Date Time Temp Pulse Resp B/P B/P Pulse O2 O2 Flow FiO2 Mean Ox Delivery Rate 09/04 1021 98.0 97 18 96 Room Air Allergies Coded Allergies: Penicillins (ANAPHYLAXIS 07/21/16) cyanocobalamin (vitamin B12) (CYANOCOBALAMIN) (HIVES 07/21/16) Reconcile Medications Albuterol Sulfate 2.5 MG/3 ML (0.083 %) VIAL.NEB 1 Vial INH/PATI Q4P PRN DYSPNEA (Reported) Codeine Phosphate/Guaifenesi (Cheratussin AC Syrup) 10 MG-100 MG/5 ML LIQUID 10 ML PO Q6P PRN COUGH Diltiazem HCl (Diltiazem 24HR ER) 120 MG CAP.ER.24H 1 CAP PO DAILY HR CONTROL (Reported) Docusate Sodium 100 MG CAPSULE 1 CAP PO DAILY PRN CONSTIPATION Escitalopram Oxalate 5 MG TABLET 1 TAB PO DAILY MENTAL HEALTH (Reported) Ferrous Sulfate 325 MG (65 MG IRON) TABLET 1 TAB PO DAILY Iron Deficiency Fluticasone/Vilanterol (Breo Ellipta 200-25 Mcg INH) 200 MCG-25 MCG/DOSE BLST.W.DEV 1 INH INH DAILY COPD (Reported) Gabapentin (Neurontin) 300 MG CAPSULE 1 CAP PO TID nerve pain (Reported) Hydrocodone/Acetaminophen ([place] 5-325 Tablet) 5 MG-325 MG TABLET 1 TAB PO Q4- 6 PRN PRN pain Hydrocortisone 10 MG TABLET 2 TAB PO DAILY UNKNOWN (Reported) Hydrocortisone 10 MG TABLET 1 TAB PO QPM UNKNOWN (Reported) Ipratropium/Albuterol Sulfate (Combivent Respimat Inhal [place]) 20 MCG-100 MCG/ ACTUATION MIST.INHAL 1 PUFF INH BID COPD (Reported) Levothyroxine Sodium (Synthroid) 112 MCG TABLET 0.112 MG PO DAILY AC HYPOTHYROIDISM Melatonin 3 MG TABLET 2 TAB PO QPM INSOMNIA (Reported) Meloxicam (Mobic) 15 MG TABLET 1 TAB PO DAILY PRN HIP PAIN Mirabegron (Myrbetriq) 25 MG TAB.ER.24H 1 TAB PO DAILY BLADDER (Reported) Omeprazole 20 MG CAPSULE.DR 40 MG PO BID Upper GI Ulcer From 10/26-11/04 - take this twice per day. From 11/05, take daily. Oxybutynin Chloride (Oxybutynin Chloride ER) 15 MG TAB.ER.24 1 TAB PO DAILY BLADDER (Reported) Oxycodone HCl/Acetaminophen (Percocet 5-325 MG Tablet) 5 MG-325 MG TABLET 1 TAB PO TID PRN PAIN Polyethylene Glycol 3350 (Miralax) 17 GRAM/DOSE POWDER 1 PAC PO DAILY PRN CONSTIPATION Sennosides/Docusate Sodium (Senna-Time S Tablet) 8.6 MG-50 MG TABLET 1 TAB PO AT BEDTIME CONSTIPATION Trazodone HCl 50 MG TABLET 1 TAB PO QPM SLEEP (Reported) Triage Note: PT TO ER FOR SUTURE REMOVAL AND WOULD LIKE LEFT 5TH FINGER EVALUATED S/P EVULSION OF NAIL. Triage Nurses Notes Reviewed? yes HPI: Patient presents for evaluation of suture removal. Patient suffered a laceration to the right index finger, middle phalanx, 10 days ago. She has not removed the dressing in the past 10 days and is unable to comment on the status of the wound. Incidentally she states that she also removed the fingernail of her left little finger yesterday because it was loose. Past History Travel History Traveled to [place] past 21 day No Medical History Any Pertinent Medical History? 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 No Review of Systems Review of Systems Constitutional: Reports: no symptoms. EENTM: Reports: no symptoms. Respiratory: Reports: no symptoms. Cardiovascular: Reports: no symptoms. GI: Reports: no symptoms. Genitourinary: Reports: no symptoms. Musculoskeletal: Reports: no symptoms. Skin: Reports: see HPI. Neurological/Psychological: Reports: no symptoms. Hematologic/Endocrine: Reports: no symptoms. Immunologic/Allergic: Reports: no symptoms. All Other Systems: Reviewed and Negative Physical Exam Physical Exam General Appearance: see below Comments: Gen.: Well-nourished, well-developed, no acute respiratory distress. Head: Normocephalic, atraumatic. Eyes: Normal inspection bilaterally Ears: Normal inspection bilaterally Nose: Normal inspection Throat/mouth : Moist mucosa Neck: Supple, full range of motion, no goiter Heart: Regular rate and rhythm Lungs: Quiet respirations Back: Normal range of motion Extremities: Right hand: Well-healed right finger laceration with 3 sutures present, left hand: No nail presents of the left little finger with otherwise no signs of trauma. Neurologic: Cranial nerves grossly intact, speech is clear Skin: warm and dry Psychiatric: Calm, cooperative, no apparent delusions or hallucinations Progress Differential Diagnosis: cellulitis, wound dehiscence Plan of Care: Wound care Departure Departure Disposition: HOME OR SELF CARE Condition: Stable Clinical Impression Primary Impression: Visit for suture removal Secondary Impressions: Fingernail avulsion, complete Qualifiers: Encounter type: initial encounter Qualified Code: S61.309A - Unspecified open wound of unspecified finger with damage to nail, initial encounter Referrals: Aleida Banks DO (PCP/Family) Additional Instructions: Avoid direct trauma to the healing wound. Dressing changes daily for your left little finger. Follow-up with your primary care physician within 48 hours to recheck your fingernail injury. Return if any concerns or sudden worsening. Departure Forms: Customer Survey General Discharge Information
== END 2017-09-04 10:44 ==
LOC: ERH 10:11
DX: Z48.02 Encounter for removal of sutures (principal)

== ENCOUNTER 2017-11-23 11:45 | Emergency (ER) | payer OTHER ==
[2017-11-23 11:49] VITALS: BP 139/92
[2017-11-23] MEDS ORDERED: BACTRIM 400-801 EACH PO (11:52)
--- NOTE | 2017-11-23 11:52 | ED HAND/WRIST INJURY COMPLAINT ---
History of Present Illness General Chief Complaint: General Adult Stated Complaint: ?SKIN INFECTION ON THUMB Source: patient Exam Limitations: no limitations Vital Signs & Intake/Output Vital Signs & Intake/Output Vital Signs Date Time Temp Pulse Resp B/P B/P Pulse O2 O2 Flow FiO2 Mean Ox Delivery Rate 11/23 1149 97.6 76 17 139/92 96 Room Air Allergies Coded Allergies: Penicillins (ANAPHYLAXIS 07/21/16) cyanocobalamin (vitamin B12) (CYANOCOBALAMIN) (HIVES 07/21/16) Reconcile Medications Albuterol Sulfate 2.5 MG/3 ML (0.083 %) VIAL.NEB 1 Vial INH/PATI Q4P PRN DYSPNEA (Reported) Codeine Phosphate/Guaifenesi (Cheratussin AC Syrup) 10 MG-100 MG/5 ML LIQUID 10 ML PO Q6P PRN COUGH Diltiazem HCl (Diltiazem 24HR ER) 120 MG CAP.ER.24H 1 CAP PO DAILY HR CONTROL (Reported) Docusate Sodium 100 MG CAPSULE 1 CAP PO DAILY PRN CONSTIPATION Escitalopram Oxalate 5 MG TABLET 1 TAB PO DAILY MENTAL HEALTH (Reported) Ferrous Sulfate 325 MG (65 MG IRON) TABLET 1 TAB PO DAILY Iron Deficiency Fluticasone/Vilanterol (Breo Ellipta 200-25 Mcg INH) 200 MCG-25 MCG/DOSE BLST.W.DEV 1 INH INH DAILY COPD (Reported) Gabapentin (Neurontin) 300 MG CAPSULE 1 CAP PO TID nerve pain (Reported) Hydrocodone/Acetaminophen ([place] 5-325 Tablet) 5 MG-325 MG TABLET 1 TAB PO Q4- 6 PRN PRN pain Hydrocortisone 10 MG TABLET 2 TAB PO DAILY UNKNOWN (Reported) Hydrocortisone 10 MG TABLET 1 TAB PO QPM UNKNOWN (Reported) Ipratropium/Albuterol Sulfate (Combivent Respimat Inhal [place]) 20 MCG-100 MCG/ ACTUATION MIST.INHAL 1 PUFF INH BID COPD (Reported) Levothyroxine Sodium (Synthroid) 112 MCG TABLET 0.112 MG PO DAILY AC HYPOTHYROIDISM Lidocaine (Lidoderm) 5 % ADH..PATCH 1 PAT TOP DAILY PAIN may wear up to 12 hours Melatonin 3 MG TABLET 2 TAB PO QPM INSOMNIA (Reported) Meloxicam (Mobic) 15 MG TABLET 1 TAB PO DAILY PRN HIP PAIN Mirabegron (Myrbetriq) 25 MG TAB.ER.24H 1 TAB PO DAILY BLADDER (Reported) Omeprazole 20 MG CAPSULE.DR 40 MG PO BID Upper GI Ulcer From 10/26-11/04 - take this twice per day. From 11/05, take daily. Oxybutynin Chloride (Oxybutynin Chloride ER) 15 MG TAB.ER.24 1 TAB PO DAILY BLADDER (Reported) Oxycodone HCl/Acetaminophen (Percocet 5-325 MG Tablet) 5 MG-325 MG TABLET 1 TAB PO TID PRN PAIN Polyethylene Glycol 3350 (Miralax) 17 GRAM/DOSE POWDER 1 PAC PO DAILY PRN CONSTIPATION Sennosides/Docusate Sodium (Senna-Time S Tablet) 8.6 MG-50 MG TABLET 1 TAB PO AT BEDTIME CONSTIPATION Sulfamethoxazole/Trimethoprim (Bactrim 400-80 MG Tablet) 400 MG-80 MG TABLET 1 TAB PO BID PARONYCHIA Trazodone HCl 50 MG TABLET 1 TAB PO QPM SLEEP (Reported) Triage Note: pt to ed with c/o redness and swelling to left thumb surrounding nail bed. pt reports picked at same area a couple days ago when she noticed a small scratch. denies fevers/chills Triage Nurses Notes Reviewed? yes Duration: day(s): (2-3), constant, continues in ED, getting worse Timing: single episode today Injury Environment: home LMP (ages 10-50): post menopausal HPI: 77-year-old female history of coronary artery disease, COPD, hypertension presents for evaluation of pain swelling and redness to her right second digit nail bed. She reports symptoms started 2 or 3 days ago, getting worse. She denies any discharge or fevers. No trauma. She is not a diabetic. (Marlon Willis) Past History Travel History Traveled to [place] past 21 day No Medical History Any Pertinent Medical History? 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 No (Marlon Willis) Review of Systems Review of Systems Constitutional: Reports: no symptoms. EENTM: Reports: no symptoms. Respiratory: Reports: no symptoms. Cardiovascular: Reports: no symptoms. GI: Reports: no symptoms. Genitourinary: Reports: no symptoms. Musculoskeletal: Reports: no symptoms. Skin: Reports: see HPI, erythema. Neurological/Psychological: Reports: no symptoms. Hematologic/Endocrine: Reports: no symptoms. Immunologic/Allergic: Reports: no symptoms. All Other Systems: Reviewed and Negative (Marlon Willis) Physical Exam Physical Exam General Appearance: well developed/nourished, no apparent distress, alert, awake Head: atraumatic, normal appearance Eyes: Bilateral: normal appearance, EOMI. Ears, Nose, Throat: hearing grossly normal Neck: normal inspection, supple, full range of motion Cardiovascular/Respiratory: no respiratory distress Shoulder Left: normal range of motion, normal inspection Shoulder Right: normal range of motion, normal inspection Elbow Left: normal range of motion, normal inspection Elbow Right: normal range of motion, normal inspection Forearm Left: normal range of motion, normal inspection Forearm Right: normal range of motion, normal inspection Wrist Left: normal range of motion, normal inspection Wrist Right: normal range of motion, normal inspection Hand Left: normal inspection, normal range of motion Hand Right: normal range of motion, 2nd finger, there is mild soft tissue swelling and erythema to the lateral and inferior nail beds of the second digit. No focal fluctuant areas no discharge no lymphatic streaking full range of motion is intact neurovascular supply intact Neurologic/Tendon: normal sensation, normal motor functions, normal tendon functions, responds to pain, no evidence tendon injury, no pulse deficit Skin: intact, normal color, warm/dry (Marlon Willis) Progress Differential Diagnosis: abscess, cellulitis, contusion, felon, fracture, gout, paronychia, septic arthritis, sprain, tenosynovitis Plan of Care: Patient is here with a paronychia to the right second digit. On exam there is no focal fluctuant areas no discharge no drainage is required at this time. Patient will be covered with Bactrim and advised warm soaks. Follow-up in 2 or 3 days for recheck discussed return precautions case discussed with dr mckenzie he agrees (Marlon Willis) Departure Departure Disposition: HOME OR SELF CARE Condition: Stable Clinical Impression Primary Impression: Paronychia Referrals: Aleida Banks DO (PCP/Family) Additional Instructions: Take antibiotics as directed for the full course. Apply warm compresses for 15- 20 minutes every few hours. Tylenol for pain. Return with worsening swelling spreading redness discharge or fever. Departure Forms: Customer Survey General Discharge Information Prescriptions: Current Visit Scripts Sulfamethoxazole/Trimethoprim (Bactrim 400-80 MG Tablet) 1 TAB PO BID #20 TAB (Marlon Willis) PA/FORMULATION CHEMIST Co-Sign Statement Statement: ED Attending supervision documentation- [X] I saw and evaluated the patient. I have also reviewed all the pertinent lab results and diagnostic results. I agree with the findings and the plan of care as documented in the PA's/FORMULATION CHEMIST's documentation. [X] I have reviewed the ED Record and agree with the PA's/FORMULATION CHEMIST's documentation. [] Additions or exceptions (if any) to the PAs/FORMULATION CHEMIST's note and plan are summarized below: [] (Shivam Mckenzie DO
== END 2017-11-23 11:57 ==
LOC: ERH 11:45
DX: L03.011 Cellulitis of right finger (principal); I10 Essential (primary) hypertension; J44.9 Chronic obstructive pulmonary disease, unspecified; I25.10 Atherosclerotic heart disease of native coronary artery without angina pectoris; F41.9 Anxiety disorder, unspecified; E03.9 Hypothyroidism, unspecified; E27.40 Unspecified adrenocortical insufficiency

== ENCOUNTER 2017-11-25 09:52 | Emergency (ER) | payer OTHER ==
[~2017-11-25] VITALS: Ht 170.2 cm; Wt 75.8 kg
[~2017-11-25 09:52] MED LIST changes: +BACTRIM 400-801 EACH PO
--- NOTE | 2017-11-25 10:11 | ED NECK/BACK PAIN COMPLAINT ---
History of Present Illness General Chief Complaint: Low Back Pain/Injury Stated Complaint: FALL LBP Source: patient Exam Limitations: no limitations Vital Signs & Intake/Output Vital Signs & Intake/Output Vital Signs Date Time Temp Pulse Resp B/P B/P Pulse O2 O2 Flow FiO2 Mean Ox Delivery Rate 11/25 1121 98.6 75 18 148/81 97 Room Air 11/25 1116 Room Air 11/25 0955 98.6 74 20 152/84 95 Room Air Allergies Coded Allergies: Penicillins (ANAPHYLAXIS 07/21/16) cyanocobalamin (vitamin B12) (CYANOCOBALAMIN) (HIVES 07/21/16) Reconcile Medications Albuterol Sulfate 2.5 MG/3 ML (0.083 %) VIAL.NEB 1 Vial INH/PATI Q4P PRN DYSPNEA (Reported) Codeine Phosphate/Guaifenesi (Cheratussin AC Syrup) 10 MG-100 MG/5 ML LIQUID 10 ML PO Q6P PRN COUGH Diltiazem HCl (Diltiazem 24HR ER) 120 MG CAP.ER.24H 1 CAP PO DAILY HR CONTROL (Reported) Docusate Sodium 100 MG CAPSULE 1 CAP PO DAILY PRN CONSTIPATION Escitalopram Oxalate 5 MG TABLET 1 TAB PO DAILY MENTAL HEALTH (Reported) Ferrous Sulfate 325 MG (65 MG IRON) TABLET 1 TAB PO DAILY Iron Deficiency Fluticasone/Vilanterol (Breo Ellipta 200-25 Mcg INH) 200 MCG-25 MCG/DOSE BLST.W.DEV 1 INH INH DAILY COPD (Reported) Gabapentin (Neurontin) 300 MG CAPSULE 1 CAP PO TID nerve pain (Reported) Hydrocodone/Acetaminophen ([place] 5-325 Tablet) 5 MG-325 MG TABLET 1 TAB PO Q4- 6 PRN PRN pain Hydrocortisone 10 MG TABLET 2 TAB PO DAILY UNKNOWN (Reported) Hydrocortisone 10 MG TABLET 1 TAB PO QPM UNKNOWN (Reported) Ipratropium/Albuterol Sulfate (Combivent Respimat Inhal [place]) 20 MCG-100 MCG/ ACTUATION MIST.INHAL 1 PUFF INH BID COPD (Reported) Levothyroxine Sodium (Synthroid) 112 MCG TABLET 0.112 MG PO DAILY AC HYPOTHYROIDISM Lidocaine (Lidoderm) 5 % ADH..PATCH 1 PAT TOP DAILY PAIN may wear up to 12 hours Melatonin 3 MG TABLET 2 TAB PO QPM INSOMNIA (Reported) Meloxicam (Mobic) 15 MG TABLET 1 TAB PO DAILY PRN HIP PAIN Mirabegron (Myrbetriq) 25 MG TAB.ER.24H 1 TAB PO DAILY BLADDER (Reported) Omeprazole 20 MG CAPSULE.DR 40 MG PO BID Upper GI Ulcer From 10/26-11/04 - take this twice per day. From 11/05, take daily. Oxybutynin Chloride (Oxybutynin Chloride ER) 15 MG TAB.ER.24 1 TAB PO DAILY BLADDER (Reported) Oxycodone HCl/Acetaminophen (Percocet 5-325 MG Tablet) 5 MG-325 MG TABLET 1 TAB PO TID PRN PAIN Polyethylene Glycol 3350 (Miralax) 17 GRAM/DOSE POWDER 1 PAC PO DAILY PRN CONSTIPATION Sennosides/Docusate Sodium (Senna-Time S Tablet) 8.6 MG-50 MG TABLET 1 TAB PO AT BEDTIME CONSTIPATION Sulfamethoxazole/Trimethoprim (Bactrim 400-80 MG Tablet) 400 MG-80 MG TABLET 1 TAB PO BID PARONYCHIA Trazodone HCl 50 MG TABLET 1 TAB PO QPM SLEEP (Reported) Triage Note: STATES THAT HER R LEG GAVE OUT THIS AM AND SHE HURT HER LOW BACK. PT ABLE TO AMBULATE WITH HER CANE BUT STATES THAT BACK IS BOTHERING HER Triage Nurses Notes Reviewed? yes Onset: Abrupt Duration: hour(s):, constant Timing: single episode today Location: lumbar spine HPI: 77-year-old female comes into the emergency room for further evaluation of low back pain. Patient reports that her right leg gave out today and she came down on her low back. Some associated pain. Sharp. Throbbing. She is currently following up with a back doctor that she had an MRI recently of her low back to some chronic issues. Past History Travel History Traveled to [place] past 21 day No Medical History Any Pertinent Medical History? 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 No Review of Systems Review of Systems Constitutional: Reports: no symptoms. Eyes: Reports: no symptoms. Ears, Nose, Throat, Mouth: Reports: no symptoms. Respiratory: Reports: no symptoms. Cardiovascular: Reports: no symptoms. Gastrointestinal/Abdominal: Reports: no symptoms. Musculoskeletal: Reports: see HPI. Skin: Reports: no symptoms. Neurological/Psychological: Reports: no symptoms. All Other Systems: Reviewed and Negative Physical Exam Physical Exam General Appearance: well developed/nourished, mild distress Head: atraumatic Eyes: Bilateral: normal appearance. Ears, Nose, Throat, Mouth: hearing grossly normal, moist mucous membrane Neck: normal inspection Respiratory: no respiratory distress Gastrointestinal: soft, non-tender Back: normal inspection, vertebral tenderness, PARASPINAL MUSCLE TENDERNESS Extremities: normal range of motion Neurologic/Psych: awake, alert, oriented x 3, normal mood/affect Skin: intact, normal color, warm/dry Core Measures CVA/TIA Diagnosis: No Progress Differential Diagnosis: cauda equina syn, herniated disc, myofascial strain, sciatica Plan of Care: Orders Procedure Date/time Status XRY-LUMBOSACRAL SPINE AP & LAT 11/25 1009 Active Diagnostic Imaging: Viewed by Me: Radiology Read. Discussed w/RAD: Radiology Read. Radiology Impression: PATIENT: JON CRISTINA PRESENT AGE: 77 PATIENT ACCOUNT NO: [id number] : 40 LOCATION: [facility] ORDERING PHYSICIAN: Rod CAMPBELL SERVICE DATE: 11/25/17-101 EXAM TYPE : RAD - XRY-LUMBOSACRAL SPINE AP & LAT EXAMINATION: XR LUMBOSACRAL SPINE CLINICAL INFORMATION: Low back pain after fall COMPARISON: MRI of lumbar spine, 11/20/2017. CT images of abdomen pelvis from 07/18/2017. TECHNIQUE: 3 views of lumbosacral spine FINDINGS: No acute findings within the degenerated lumbar spine compared to 07/18/2017. Mild levocurvature, multilevel disc degeneration and facet arthropathy of the lumbar spine. Findings include chronic degenerative disc space narrowing and osteophyte formation at L1-L2, L2-L3 and L3-L4. Chronic , 0.3 cm of retrolisthesis of L1 on L2. No evidence of spondylolysis, traumatic spondylolisthesis or acute vertebral compression fracture. At L5-S1, disc degeneration and facet arthropathy are associated with 0.4 cm anterolisthesis of L5 on S1. The sacrum and sacroiliac joints are intact. IMPRESSION: - No acute abnormalities in the moderately degenerated lumbar spine. - Chronic multilevel degenerative disc disease and facet arthropathy. - Mild retrolisthesis at L1-L2 and mild anterolisthesis at L5-S1 are unchanged compared to 07/18/2017. DICTATED BY: Harvey Wallace MD DATE/TIME DICTATED:11/25/171105 KEY ENTRY OPERATOR: ANA DATE/TIME TRANSCRIBED:11/25/171105 CONFIDENTIAL, DO NOT COPY WITHOUT APPROPRIATE AUTHORIZATION. <Electronically signed in Other Vendor System> SIGNED BY: Harvey Wallace MD 11/25/171115 Departure Departure Disposition: HOME OR SELF CARE Condition: Stable Clinical Impression Primary Impression: Low back pain Referrals: Aleida Banks DO (PCP/Family) Additional Instructions: Use lidocaine patches at home as needed. Ice. Tylenol. Return if any concerns. Please go over all results of today's visit with your primary care doctor. Contact your primary care doctor to let them know you were here in the emergency room. There may be nonspecific findings which may not be related to your visit today here in the emergency room but may require further evaluation and chronic monitoring by your primary care doctor. If you had a laceration today the chance of foreign body always remains. You should follow-up with your primary care doctor for recheck in 3-5 days for a wound check. If you had an x-ray done there is a chance that a fracture could have been missed on initial read and you should follow-up with your primary care doctor for repeat x-rays if symptoms persist. If your blood pressure was elevated here in the emergency room please have rechecked by [facility] primary care doctor within the next 48. If you were prescribed a narcotic here in the emergency room or any type of controlled substances you're not allowed to drive while taking this medication or operate any type of heavy machinery. Narcotics can make you feel lightheaded dizziness nausea and can cause constipation. You may need to picker tender a stool softener. Thank you for choosing [facility] emergency room. Please return to the emergency room immediately if you have any other concerns worsening of symptoms. Departure Forms: Customer Survey General Discharge Information Prescriptions: Current Visit Scripts Lidocaine (Lidoderm) 1 PAT TOP DAILY #30 PAT may wear up to 12 hours Comments 11/25/2017 11:23:55 AM Patient clinically looks well. In no apparent distress. No evidence of fracture. Follow-up with primary care doctor. Return if any concerns worsening of symptoms.
--- NOTE | 2017-11-25 11:16 | RADIOLOGY REPORT ---
EXAMINATION: XR LUMBOSACRAL SPINE CLINICAL INFORMATION: Low back pain after fall COMPARISON: MRI of lumbar spine, 11/20/2017. CT images of abdomen pelvis from 07/18/2017. TECHNIQUE: 3 views of lumbosacral spine FINDINGS: No acute findings within the degenerated lumbar spine compared to 07/18/2017. Mild levocurvature, multilevel disc degeneration and facet arthropathy of the lumbar spine. Findings include chronic degenerative disc space narrowing and osteophyte formation at L1-L2, L2-L3 and L3-L4. Chronic, 0.3 cm of retrolisthesis of L1 on L2. No evidence of spondylolysis, traumatic spondylolisthesis or acute vertebral compression fracture. At L5-S1, disc degeneration and facet arthropathy are associated with 0.4 cm anterolisthesis of L5 on S1. The sacrum and sacroiliac joints are intact. IMPRESSION: - No acute abnormalities in the moderately degenerated lumbar spine. - Chronic multilevel degenerative disc disease and facet arthropathy. - Mild retrolisthesis at L1-L2 and mild anterolisthesis at L5-S1 are unchanged compared to 07/18/2017.
[2017-11-25 11:21] VITALS: BP 148/81
[2017-11-25] MEDS ORDERED: LIDODERM1 EACH TOP (11:22)
== END 2017-11-25 11:42 ==
LOC: ERH 09:52
DX: M54.5 Low back pain (principal); I25.10 Atherosclerotic heart disease of native coronary artery without angina pectoris; R00.0 Tachycardia, unspecified; J44.9 Chronic obstructive pulmonary disease, unspecified; D64.9 Anemia, unspecified; Z87.891 Personal history of nicotine dependence; E27.40 Unspecified adrenocortical insufficiency
CPT/HCPCS: 72100